=== PATIENT | male | born 1965 | race Caucasian/White ===

== ENCOUNTER 2020-03-03 13:25 | Inpatient (IN) ==
[2020-03-03 14:03] LABS: Basophils # (auto) 0.03 K/uL (0-0.2); Basophils % (auto) 0.3 %; Eosinophils % (auto) 8.8 %; Hematocrit (blood only) 37.9 % (42-52); Immature Granulocytes # (auto) 0.05 K/uL (0.00-0.02); Immature Granulocytes % (auto) 0.5 %; Lymphocytes # (auto) 1.67 K/uL (1.2-3.4); Lymphocytes % (auto) 16.2 %; Mean Corpuscular Hemoglobin 29.3 pg (25-34); Mean Corpuscular Hgb Conc 34.3 g/dL (32-36); Mean Corpuscular Volume 85.6 fL (80-100); Mean Platelet Volume 11.5 fL (7.4-10.4); Monocytes # (auto) 0.54 K/uL (0.11-0.59); Monocytes % (auto) 5.3 %; Neutrophils # (auto) 7.09 K/uL (1.4-6.5); Neutrophils % (auto) 68.9 %; Platelet Count 210 K/uL (130-400); RDW Coefficient of Variation 13.2 % (11.5-14.5); RDW Standard Deviation 41.2 fL (36.4-46.3); Red Blood Count 4.43 M/uL (4.7-6.1); White Blood Count 10.28 K/uL (4.8-10.8)
[2020-03-03 14:17] LABS: Partial Thromboplastin Ratio 0.9; Partial Thromboplastin Time 24.2 Seconds (21.0-31.0); Prothrombin Time 10.7 Seconds (9.0-12.0)
[2020-03-03 14:34] LABS: Alanine Aminotransferase 22 U/L (12-78); Albumin Globulin Ratio 0.6 (0.9-2); Albumin Level 2.6 gm/dl (3.4-5.0); Alkaline Phosphatase 129 U/L (45-117); Aspartate Aminotransferase 22 U/L (15-37); Bilirubin,Total 0.3 mg/dl (0.2-1); Blood Urea Nitrogen 48 mg/dl (7-18); Carbon Dioxide 25 mmol/L (21-32); Chloride 97 mmol/L (98-107); Creatinine Clr Calc Pharmacy 51.5 ml/min; Est GFR (African American) 43.2; Est GFR (Non-African American) 37.3; Globulin 4.1 gm/dl (2.5-4.0); Glucose 387 mg/dl (70-99); Potassium 5.7 mmol/L (3.5-5.1); Sodium 127 mmol/L (136-145); Total Protein 6.7 gm/dl (6.4-8.2); Troponin I < 0.015 ng/ml (0-0.045)
[2020-03-03] MEDS ORDERED: ASPIRIN 81 MG CHEW PO STA (14:45)
[2020-03-03] MEDS ORDERED: NITROGLYCERIN SL 0.4 MG/TAB TAB SL STA (14:45)
--- NOTE | 2020-03-03 14:50 | XRay Report ---
XR chest 1V portable CLINICAL HISTORY: Chest Pain pain COMPARISON STUDY: No previous studies for comparison. FINDINGS: Mild stable cardiomegaly. Permanent unipolar cardiac pacer. Lungs are considered clear. [place] phragms are smooth. IMPRESSION: No acute process. ACT 112: Negative or not required by law. The above report was generated using voice recognition software. It may contain grammatical, syntax or spelling errors. Electronically signed by: Samm Whitehead M.D. 03/03/2020 2:49 PM
--- NOTE | 2020-03-03 14:53 | Emergency Department Note ---
History of Present Illness General Chief complaint: Cardiac Assessment Stated complaint: CHEST PRESS,NUMB LEFT ARM,NAUSEA,SOB,BACK PAIN Time Seen by Provider: 03/03/20 14:33 Source: patient Mode of arrival: ambulatory Limitations: no limitations History of Present Illness Maximum Pain Intensity: 6 This patient comes in planing of chest pain. He said it started around 9:00 in the morning got dizzy and some chest pain it central it does radiate to his left arm he was nauseated when he moved is been constant since 1:00. It was 8/10 at the worst and is now 4-10 he is had some shortness of breath. It feels better when he sits is worse when he breathes. He does have a extensive medical history including cardiac disease and he said that he had a chest pain a few days ago prior to that he had not had chest pain since 2015. He was out of his nitroglycerin. He has had no blood or melena stool. No fall or trauma. He did take approximately 14 units of insulin at noon. In regards to his cardiac history had an ME with stent in 2011. He had another stent in 2015. He had a CABG done in about 2015 as well as a defibrillator. He says his defibrillator has not fired. He has never been to our hospital before and just recently moved to the area and has an appointment with the [facility] primary care physician. Home Medications Home Medications Medication Instructions Recorded Confirmed Type amlodipine 5 mg PO DAILY 03/03/20 03/03/20 History aspirin [Aspirin Low Dose] 81 mg PO DAILY 03/03/20 03/03/20 History atorvastatin 80 mg PO HS 03/03/20 03/03/20 History citalopram 40 mg PO DAILY 03/03/20 03/03/20 History furosemide 40 mg PO DAILY 03/03/20 03/03/20 History gabapentin 600 mg PO QID 03/03/20 03/03/20 History insulin aspart U-100 [Novolog 10 unit SUBCUT UD 03/03/20 03/03/20 History Flexpen U-100 Insulin] insulin glargine [Basaglar KwikPen 28 unit SUBCUT HS 03/03/20 03/03/20 History U-100 Insulin] isosorbide mononitrate 90 mg PO DAILY 03/03/20 03/03/20 History losartan 25 mg PO DAILY 03/03/20 03/03/20 History metoprolol succinate 50 mg PO DAILY 03/03/20 03/03/20 History nitroglycerin [Nitrostat] 0.4 mg SUBLINGUAL UD PRN 03/03/20 03/03/20 History oxycodone 10 mg PO QID PRN 03/03/20 03/03/20 History zolpidem 5 mg PO HS PRN 03/03/20 03/03/20 History Allergies Allergy/AdvReac Type Severity Reaction Status Date / Time bee venom protein (honey bee) Allergy Unknown Unverified 03/03/20 15:21 fluorescein Allergy Unknown Unverified 03/03/20 15:21 Past Med/Surg History Social History Smoking Status: Current every day smoker Second Hand Exposure: Yes; Do You Dip or Chew Tobacco: No; Tobacco Cessation Education Requested by Patient: Yes Hx Substance Use: No Preferred Language: Irish Communication Ability: Effective Submersible Pilot Required: No Beliefs That Will Affect Care: None Current Living Situation: Significant Other Current Living Situation Comment: [place] ([place]) Other Information That Helps Us Care for You: No Feels Safe at Home: Yes Safety Concerns: Feels Safe At This Time Immunizations: Social history he tells me he went through a recent break-up and moved to the area Review of Systems A total of 10 systems reviewed and were otherwise negative Physical Exam Vital Signs Vital Signs - 24 hr 03/03/20 13:32 03/03/20 14:31 03/03/20 14:53 Temperature 37 C Temperature Source Oral Pulse Rate 77 68 66 Pulse Rate from SpO2 Sensor 67 67 Respiratory Rate 18 25 H 16 Respiratory Effort / Characteristics Non-Labored Respiratory Depth Normal Blood Pressure 104/67 142/82 H 116/77 Blood Pressure Mean 79 90 84 Pulse Oximetry 97 96 95 Oxygen Delivery Method Room Air Room Air Room Air Sepsis Recent Fever Within 48 Hours No Sepsis New/Unexplained Change in Mental Status No Sepsis Action Taken by Nursing No Action Required 03/03/20 14:55 03/03/20 15:00 03/03/20 15:05 Temperature Temperature Source Pulse Rate 65 65 68 Pulse Rate from SpO2 Sensor 65 65 68 Respiratory Rate 25 H 18 21 Respiratory Effort / Characteristics Respiratory Depth Blood Pressure 104/62 101/58 L 110/63 Blood Pressure Mean 66 69 73 Pulse Oximetry 94 94 96 Oxygen Delivery Method Room Air Room Air Room Air Sepsis Recent Fever Within 48 Hours Sepsis New/Unexplained Change in Mental Status Sepsis Action Taken by Nursing 03/03/20 15:16 Temperature Temperature Source Pulse Rate 70 Pulse Rate from SpO2 Sensor Respiratory Rate 19 Respiratory Effort / Characteristics Respiratory Depth Blood Pressure 90/69 L Blood Pressure Mean 74 Pulse Oximetry 96 Oxygen Delivery Method Room Air Sepsis Recent Fever Within 48 Hours Sepsis New/Unexplained Change in Mental Status Sepsis Action Taken by Nursing General: Well developed well nourished in no acute distress, breathing comfortab ly on room air. Normal speech HEENT: Normal cephalic atraumatic. Pupils are equal round and reactive to light. Extraocular movements are intact. Oropharynx is pink with moist mucous membranes. No swelling of the mouth lips or tongue. Neck: Supple with a midline trachea. No meningeal signs or stiffness, no JVD or bruits. No Stridor. Chest: Clear to auscultation bilaterally. No wheezes or rhonchi. No increased work of breathing. Heart: Regular rate and rhythm without murmurs or gallops. Abdomen: Soft nontender, nondistended without rebound guarding or rigidity. Extremities: No cyanosis clubbing or edema. No calf tenderness. He has a left prosthetic leg with left BKA Spine/Back. Non tender to palpation. No CVA tenderness Skin: Good turgor without rashes. Neurologic exam: Cranial nerves two through 12 are intact. Motor and sensation are intact and symmetrical throughout. Course Administered Medications Acetaminophen (Tylenol) 650 mg PO Q4H PRN PRN Reason: Pain Stop: 04/03/20 03:47 Last Admin: 03/04/20 11:54 Dose: 650 mg Documented by: [id number] Admin: 03/04/20 04:03 Dose: 650 mg Documented by: [id number] Amlodipine Besylate (Norvasc) 5 mg PO DAILY [facility] Stop: 04/03/20 08:59 Last Admin: 03/04/20 07:34 Dose: 5 mg Documented by: [id number] Aspirin (Ecotrin Ectab) 81 mg PO DAILY [facility] Stop: 04/03/20 08:59 Last Admin: 03/04/20 07:33 Dose: 81 mg Documented by: [id number] Atorvastatin Calcium (Lipitor) 80 mg PO HS [facility] Stop: 04/02/20 20:59 Last Admin: 03/04/20 20:52 Dose: 80 mg Documented by: [id number] Admin: 03/03/20 19:35 Dose: 80 mg Documented by: [id number] Citalopram Hydrobromide (Celexa) 40 mg PO DAILY [facility] Stop: 04/03/20 08:59 Last Admin: 03/04/20 07:35 Dose: 40 mg Documented by: [id number] Gabapentin (Neurontin) 600 mg PO QID [facility] Stop: 04/02/20 18:59 Last Admin: 03/04/20 20:52 Dose: 600 mg Documented by: [id number] Admin: 03/04/20 16:46 Dose: 600 mg Documented by: [id number] Admin: 03/04/20 12:33 Dose: Not Given Documented by: [id number] Admin: 03/04/20 07:34 Dose: 600 mg Documented by: [id number] Admin: 03/03/20 23:02 Dose: 600 mg Documented by: [id number] Admin: 03/03/20 19:36 Dose: 600 mg Documented by: [id number] Heparin Sodium (Porcine) (Heparin Sodium (Porcine)) 5,000 units SQ Q12 [facility] Stop: 04/02/20 20:59 Last Admin: 03/04/20 20:52 Dose: 5,000 units Documented by: [id number] Cosigned by: [id number] Admin: 03/04/20 07:38 Dose: 5,000 units Documented by: [id number] Cosigned by: [id number] Admin: 03/03/20 19:36 Dose: 5,000 units Documented by: [id number] Cosigned by: [id number] Sodium Chloride (Nss 1000ml) 1,000 mls @ 80 mls/hr IV .[id number] [facility] Stop: 04/02/20 18:24 Last Infusion: 03/04/20 23:30 Dose: 0 mls/hr Documented by: [id number] Admin: 03/04/20 18:14 Dose: 80 mls/hr Documented by: [id number] Infusion: 03/04/20 18:02 Dose: 0 mls/hr Documented by: [id number] Admin: 03/04/20 05:24 Dose: 80 mls/hr Documented by: [id number] Infusion: 03/04/20 05:24 Dose: 80 mls/hr Documented by: [id number] Admin: 03/03/20 18:44 Dose: 80 mls/hr Documented by: [id number] Insulin Aspart (Novolog Flexpen) 0 units SC ACHS [facility] Stop: 04/02/20 20:59 Last Admin: 03/04/20 20:54 Dose: Not Given Documented by: [id number] Cosigned by: [id number] Admin: 03/04/20 16:45 Dose: 6 units Documented by: [id number] Cosigned by: [id number] Admin: 03/04/20 11:46 Dose: 8 units Documented by: [id number] Cosigned by: [id number] Admin: 03/04/20 07:39 Dose: 11 units Documented by: [id number] Cosigned by: [id number] Admin: 03/03/20 21:07 Dose: 3 units Documented by: [id number] Cosigned by: [id number] Insulin Glargine (Lantus Solostar Pen) 0 units SC HS [facility]; Protocol Stop: 04/03/20 20:59 Last Admin: 03/04/20 20:53 Dose: 15 units Documented by: [id number] Cosigned by: [id number] Isosorbide Mononitrate (Imdur Extended Rel) 90 mg PO DAILY [facility] Stop: 04/03/20 08:59 Last Admin: 03/04/20 07:32 Dose: 90 mg Documented by: [id number] Losartan Potassium (Cozaar) 25 mg PO DAILY [facility] Stop: 04/03/20 08:59 Last Admin: 03/04/20 07:33 Dose: 25 mg Documented by: [id number] Metoprolol Succinate (Toprol Xl) 50 mg PO DAILY [facility] Stop: 04/03/20 08:59 Last Admin: 03/04/20 07:33 Dose: 50 mg Documented by: [id number] Nitroglycerin (Nitro-Bid 2%) 0.5 inch EXT Q6H [facility] Stop: 04/02/20 18:24 Last Admin: 03/05/20 01:15 Dose: 0.5 inch Documented by: [id number] Admin: 03/04/20 19:40 Dose: 0.5 inch Documented by: [id number] Admin: 03/04/20 12:33 Dose: Not Given Documented by: [id number] Admin: 03/04/20 07:29 Dose: 0.5 inch Documented by: [id number] Admin: 03/04/20 02:45 Dose: 0.5 inch Documented by: [id number] Admin: 03/03/20 19:45 Dose: 0.5 inch Documented by: [id number] Oxycodone HCl (Oxycodone Hcl Ir 5 Mg Tab (Immediate Release)) 10 mg PO QID PRN PRN Reason: Pain Stop: 03/17/20 18:24 Last Admin: 03/05/20 03:55 Dose: 10 mg Documented by: [id number] Admin: 03/04/20 13:27 Dose: 10 mg Documented by: [id number] Admin: 03/04/20 07:27 Dose: 10 mg Documented by: [id number] Admin: 03/03/20 23:02 Dose: 10 mg Documented by: [id number] Admin: 03/03/20 18:46 Dose: 10 mg Documented by: [id number] Discontinued Medications Aspirin (Aspirin Chew) 324 mg PO NOW STA Stop: 03/03/20 14:46 Last Admin: 03/03/20 14:51 Dose: 324 mg Documented by: [id number] Sodium Chloride (Nss 1000ml) 500 mls @ 999 mls/hr IV .Q31M ONE Stop: 03/03/20 15:59 Last Infusion: 03/03/20 16:08 Dose: 0 mls/hr Documented by: [id number] Admin: 03/03/20 15:31 Dose: 999 mls/hr Documented by: [id number] Insulin Glargine (Lantus Solostar Pen) 28 units SC HS [facility] Stop: 04/02/20 20:59 Last Admin: 03/03/20 19:36 Dose: 28 units Documented by: [id number] Cosigned by: [id number] Insulin Glargine (Lantus Solostar Pen) 15 units SC NOW ONE Stop: 03/04/20 08:01 Last Admin: 03/04/20 08:09 Dose: 15 units Documented by: [id number] Cosigned by: [id number] Nitroglycerin (Nitrostat) 0.4 mg SL NOW STA Stop: 03/03/20 14:46 Last Admin: 03/03/20 14:52 Dose: 0.4 mg Documented by: [id number] Perflutren Lipid Microsphere (Definity) 2 ml IV ONCE ONE Stop: 03/04/20 07:25 Last Admin: 03/04/20 07:24 Dose: 2 ml Documented by: [id number] Zolpidem Tartrate (Ambien) 5 mg PO HS PRN PRN Reason: Sleep Stop: 04/02/20 18:24 Last Admin: 03/03/20 23:02 Dose: 5 mg Documented by: [id number] Medical Decision Making Differential Diagnosis Acute coronary syndrome, arrhythmia, unstable angina, diabetes complication, isauro ctrolyte or metabolic abnormality, infection Medical Records Attestation: I reviewed the patient's medical records. Home Medications Current Medication List: was personally reviewed by me Laboratory Data Attestation: I reviewed the patient's lab results. Result diagrams: 03/05/20 06:37 03/04/20 05:16 Lab Results 03/03/20 03/03/20 03/03/20 Range/Units 13:47 13:47 13:47 WBC 10.28 (4.8-10.8) K/uL RBC 4.43 L (4.7-6.1) M/uL Hgb 13.0 L (14.0-18.0) g/dL Hct 37.9 L (42-52) % MCV 85.6 (80-100) fL MCH 29.3 (25-34) pg MCHC 34.3 (32-36) g/dL RDW Std Deviation 41.2 (36.4-46.3) fL RDW Coeff of Eli 13.2 (11.5-14.5) % Plt Count 210 (130-400) K/uL MPV 11.5 H (7.4-10.4) fL Immature Gran % (Auto) 0.5 % Neut % (Auto) 68.9 % Lymph % (Auto) 16.2 % [place] % (Auto) 5.3 % Eos % (Auto) 8.8 % Baso % (Auto) 0.3 % Neut # (Auto) 7.09 H (1.4-6.5) K/uL Lymph # (Auto) 1.67 (1.2-3.4) K/uL [place] # (Auto) 0.54 (0.11-0.59) K/uL Eos # (Auto) 0.90 H (0-0.5) K/uL Baso # (Auto) 0.03 (0-0.2) K/uL Immature Gran # (Auto) 0.05 H (0.00-0.02) K/uL PT 10.7 (9.0-12.0) Seconds INR 1.0 (0.9-1.1) APTT 24.2 (21.0-31.0) Seconds PTT Ratio 0.9 Sodium 127 L (136-145) mmol/L Potassium 5.7 H (3.5-5.1) mmol/L Chloride 97 L (98-107) mmol/L Carbon Dioxide 25 (21-32) mmol/L Anion Gap 6.0 (3-11) BUN 48 H (7-18) mg/dl Creatinine 2.00 H (0.6-1.4) mg/dl Est Cr Clr Drug Dosing 51.5 ml/min Est GFR ( Amer) 43.2 Est GFR (Non-Af Amer) 37.3 BUN/Creatinine Ratio 24.0 H (10-20) Glucose 387 H* (70-99) mg/dl Calcium 9.0 (8.5-10.1) mg/dl Total Bilirubin 0.3 (0.2-1) mg/dl AST 22 (15-37) U/L ALT 22 (12-78) U/L Alkaline Phosphatase 129 H (45-117) U/L Troponin I < 0.015 (0-0.045) ng/ml Total Protein 6.7 (6.4-8.2) gm/dl Albumin 2.6 L (3.4-5.0) gm/dl Globulin 4.1 H (2.5-4.0) gm/dl Albumin/Globulin Ratio 0.6 L (0.9-2) Beta-Hydroxybutyric Acd (0.2-2.81) mg/dl Imaging Data Attestation: I personally reviewed and interpreted this imaging study as follows: My Impression: Chest x-ray: No acute infiltrate, failure, pneumothorax seen. Defibrillator in place Radiologist's Impression: XR chest 1V portable CLINICAL HISTORY: Chest Pain pain COMPARISON STUDY: No previous studies for comparison. FINDINGS: Mild stable cardiomegaly. Permanent unipolar cardiac pacer. Lungs are considered clear. Diaphragms are smooth. IMPRESSION: No acute process. ECG Data Attestation: I personally reviewed and interpreted this ECG as follows: Indication: + chest pain Rate (beats per minute): 74 Rhythm: + normal sinus ECG Intervals/blocks: + Normal QRS, + Normal QT and + Normal [place] ECG Pace: + Left axis deviation ECG ST segments: + Normal ST segments ECG Findings: + LVH; no PACs and no PVCs Comparison ECG Date: no prior available Blood Pressure Blood Pressure Findings: Elevated blood pressure Blood Pressure Disposition: elevated BP felt to be situational MDM Narrative This patient comes in as described above peers placed in room C1. He is here for treatment evaluation of chest pain. He has a strong cardiac history as well as being a diabetic. He looks well on exam and stable vital signs. His EKG shows no ischemic changes there is no old one available for comparison as he is never been to our hospital before. He does not have an elevated white count or fever to suggest infection. He does have renal insufficiency which he says he typically does. Potassium is mildly elevated at 5.7 however he has no changes to suggest peak T waves or arrhythmia. His troponin initially is negative. He was given aspirin 324 mg chewable as well as a sublingual nitroglycerin. Chest x-ray is also obtained and shows no chf, pneumonia or pneumothorax. The nitro did help his pain but his blood pressure went low into the high 80s/low 90s was given a 500 cc bolus and did respond to this. I did consult the medical team as I do think he needs to be admitted for further cardiac treatment and evaluation. Continuous cardiac technologist: His chest pain and his cardiac history an order was placed in the EMR for continuous cardiac monitoring. He was noted to be in normal sinus rhythm with a pulse of 68. Impression & Plan Chest pain, ICD (implantable cardioverter-defibrillator), single, in situ, CAD (coronary artery disease), Dizziness, Acute hyperglycemia Discharge Plan Visit Data Chief Complaint: Cardiac Assessment Stated Complaint: CHEST PRESS,NUMB LEFT ARM,NAUSEA,SOB,BACK PAIN ED Provider: Guillermo Pettit Discharge Problem: Chest pain, ICD (implantable cardioverter-defibrillator), single, in situ, CAD (coronary artery disease), Dizziness, Acute hyperglycemia Patient Disposition: Still a Patient Discharge Instructions Interventions: ED Discharge Assessment Last Done: 03/03/20 17:47 Discharge Problem: Chest pain Qualifiers: Chest pain type: precordial pain Qualified Code(s): R07.2 - Precordial pain CAD (coronary artery disease) Qualifiers: Coronary Disease-Associated Artery/Lesion type: unspecified vessel or lesion type [place] vs. transplanted heart: [place] heart Associated angina: with unstable angina Qualified Code(s): I25.110 - Atherosclerotic heart disease of [place] coronary artery with unstable angina pectoris
[2020-03-03] MEDS ORDERED: SODIUM CHLORIDE 0.9% 1000ML 500 ML IV ONE (15:29)
--- NOTE | 2020-03-03 17:10 | History & Physical Report ---
Date of Service March 03, 2020 Assessment & Plan (1) Chest pain: Pt is a 58yo gentleman with a PMHx significant for PA with stent placement, Hx of CABG and defibrillator placement, uncontrolled diabetes with left BKA, tobacco abuse, Tourette's syndrome and antisocial personality disorder who was admitted for ACS rule-out. ACS rule-out/Chest Pressure -Has been having chest pressure 8/10, started 8 hours ago, currently 3/10. -Associated with nausea and dry heaves, SOB, sweats and headache -Pt with significant cardiac Hx of PA with stent placement, Hx of CABG and defibrillator placement -EKG with NSR, no evidence of acute ischemia -Trops NEGx1, will trend q6h -Echo ordered -lipid panel and HgbA1c pending -will admit to PCU/tele for continuous cardiac monitoring -continue nitro-Bid 0.5inch q6h scheduled with SBP parameters for holding. Given hypotension currently, no prn morphine ordered for additional pain relief. -aspirin 324mg given in ED, continue home 81mg daily -continue home metoprolol succinate 50mg daily, isosorbide mononitrate 90mg, losartan 25mg daily -continue atorvastatin 80mg po qhs -cardiology consult placed Uncontrolled DMII -pt with glucose of 387, does not appear to be in DKA -pt states he is compliant with home regimen of basal 28U nightly with 10+SS with meals, however his high glucose levels suggest otherwise. -Hx of left BKA for diabetic infection -HgbA1c, urine microalbuminuria ordered with AM labs -pharmacy consult placed for glycemic control -ISS while hospitalized Hyperkalemia -K+ of 5.7 on admission -Pt states he has a known history of this -EKG with NSR, no evidence of arrhythmias currently -Anticipate some resolution with insulin administration above; can consider IV Insulin Regular Hyponatremia -Pt with Na of 127 on admission -Possibly secondary to hypovolemia/dehydration vs. acutely with Hx of nausea/vomitting -Urine Na+ and urine and serum osm ordered -on NSS @80 for rehydration -trend with AM labs BUBBA in the setting of uncontrolled diabetes -Cr of 2.00 on admission, BUN/Cr ratio>20 -unsure of pt's baseline -suggestion of pre-renal pathology -NSS@80mls/hr -trend Cr with AM labs -holding home Lasix 40mg HTN -continue home amlodipine 5mg in addition to metoprolol succinate and losartan ?CHF -echo ordered, previous records unavailable -hold home Lasix 40mg -continue home isosorbide mononitrate 90mg, metoprolol succinate 50mg, losartan 25mg Hx of tobacco abuse -pt states he will quit today -Has tried periodically to quit -smokes 1ppd--consider patch while hospitalized Hx of antisocial personality disorder -continue home citalopram 40mg Hx of Tourettes Syndrome -continue home gabapentin 600mg QID Hx of back pain and BKA -continue PRN oxycodone 10mg QID Insomnia -continue home zolpidem 5mg qhs PRN FEN/GI: DMII diet, NSS@80mls/hr DVT prophylaxis: Heparin SQ BID CODE STATUS: full code Dispo: PCU/tele History of Present Illness Primary Care Provider: Landon Johnston DO Pt is a 58yo gentleman with a PMHx significant for PA with stent placement, Hx of CABG and defibrillator placement, uncontrolled diabetes with left BKA, tobacco abuse, Tourette's syndrome and antisocial personality disorder who was admitted for ACS rule-out. Pt states he recently moved to the area after being in [facility] with a friend for the last 3 months. The living situation was not the best so he moved to [place] to be with his girlfriend. Before [place] he lived in [place] with his mother after his left him. [facility] he has a significant cardiac Hx with uncontrolled diabetes. Presenting today after having unrelenting chest pressure, 8/10, nonradiating but associated with SOB, sweats and numbness or tingling down the arm. [facility] he had a similar episode a few days ago that went away. [facility] in both instances he was active before and resting when the pain started. [facility] he ran out of his nitroglycerin medication so could not take anything when he had the pain. Has a Hx of CABG done in 2017 at the [facility] in [place] and implantation of a defibrillator after he "passed out" while walking his dog in 2016 at [facility] in [place]. Currently a smoker of 1ppd, off and on since age 37, Fam Hx of father with DM and heart disease. Denies excessive alcohol use as well as recreational drug use. Says girlfriend has medical marijuana. 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 Had BBQ chicken for dinner last night. Lives at home with his girlfriend in a [address] house. ED course: 500 NSS bolus, aspirin 324mg, nitrostat SL 0.4mg Allergies Allergy/AdvReac Type Severity Reaction Status Date / Time bee venom protein (honey bee) Allergy Unknown Unverified 03/03/20 15:21 fluorescein Allergy Unknown Unverified 03/03/20 15:21 Home Medications Home Medications Medication Instructions Recorded Confirmed Type amlodipine 5 mg PO DAILY 03/03/20 03/03/20 History aspirin [Aspirin Low Dose] 81 mg PO DAILY 03/03/20 03/03/20 History atorvastatin 80 mg PO HS 03/03/20 03/03/20 History citalopram 40 mg PO DAILY 03/03/20 03/03/20 History furosemide 40 mg PO DAILY 03/03/20 03/03/20 History gabapentin 600 mg PO QID 03/03/20 03/03/20 History insulin aspart U-100 [Novolog 10 unit SUBCUT UD 03/03/20 03/03/20 History Flexpen U-100 Insulin] insulin glargine [Basaglar KwikPen 28 unit SUBCUT HS 03/03/20 03/03/20 History U-100 Insulin] isosorbide mononitrate 90 mg PO DAILY 03/03/20 03/03/20 History losartan 25 mg PO DAILY 03/03/20 03/03/20 History metoprolol succinate 50 mg PO DAILY 03/03/20 03/03/20 History nitroglycerin [Nitrostat] 0.4 mg SUBLINGUAL UD PRN 03/03/20 03/03/20 History oxycodone 10 mg PO QID PRN 03/03/20 03/03/20 History zolpidem 5 mg PO HS PRN 03/03/20 03/03/20 History Past Med/Surg History Social History Smoking Status: Current every day smoker Feels Safe at Home: Yes Review of Systems Constitutional: + fatigue; no fever, no chills and no anorexia Eyes: no worsening vision Ear, Nose, Mouth, Throat: no nasal congestion and no sore throat Respiratory: + dyspnea; no cough Cardiovascular: + chest pain, + chest pain at rest, + chest pain with activity and + dyspnea; no palpitations, no syncope and no edema Gastrointestinal: + nausea; no abdominal pain, no vomiting, no constipation, no diarrhea/loose stools and no blood in stools Genitourinary: no dysuria Musculoskeletal: + back pain and + joint pain Integumentary: no new lesions Neurologic: + headache(s); no tingling, no numbness and no confusion Psychiatric: no confusion Physical Exam Physical Exam: General: Alert, oriented. No acute distress sitting in bed, mask on face Skin: bruises on right lower extremity Psych: Appropriate mood and affect Neuro: No gross deficits HEENT: NC/AT Chest: Nontender to palpation. Noted surgical scars CV: RRR, Normal s1, s2. No murmurs appreciated Resp: Breath sounds clear bilaterally, no increased effort of breathing. No crackles/rhonchi/rales. Abdomen: Soft, nontender, nondistended. No guarding. No organomegaly appreciated. Extremities: Left BKA, no edema in right leg Results & Data Results & Data ([facility]) Vital Signs (Past 12 Hours) Vital Signs Temp Pulse Resp BP Pulse Ox 03/03/20 16:45 67 18 103/52 L 96 03/03/20 16:30 64 19 121/70 03/03/20 16:15 63 13 119/56 L 03/03/20 16:00 60 16 97/58 L 96 03/03/20 15:45 63 23 110/64 97 03/03/20 15:40 20 99/56 L 96 03/03/20 15:39 20 86/50 L 96 03/03/20 15:32 20 113/68 97 03/03/20 15:16 70 19 90/69 L 96 03/03/20 15:05 68 21 110/63 96 03/03/20 15:00 65 18 101/58 L 94 03/03/20 14:55 65 25 H 104/62 94 03/03/20 14:53 66 16 116/77 95 03/03/20 14:31 68 25 H 142/82 H 96 03/03/20 13:32 37 C 77 18 104/67 97 Supervising Physician Co-Signing Physician Notes Attending attestation Pt seen and examined in concert with Dr. Ojevwe. In agreement with the documented findings as noted in the resident documentation with any exceptions or additions as noted here. Continuing improvement of central chest pressure (2/10 now) with resolution of LUE paresthsia. Persistent acute on chronic lower back pain on the right side which has been ameliorated partially by ED pain mgmt. FULL CODE On examination, S1/S2 nl RRR no MCG. CTAB. Abd NT/ND BS+ve. LLE prosthesis BKA in place. Str 5/5 b/l UE Chest pain, ACS r/o - considerable cardiac history including stent, CABG and implantable defib - cardiology consultation placed. Trend troponins. EKG in AM. Agree w/ echo. Nitrate ordered, morphine ordered but hold presently 2/2 low BP DMII, uncontrolled - has been running, per patient, in the 300-500 range for the last several months. Had been out of medication prior to moving to [place]. Resume home regimen. Glycemic consult placed. BUBBA, pre-renal, vs. CKD in the setting of DMII - previous records would be helpful. IVF and trend BMP. Hyponatremia, suspected hypovolemic vs. N/V induced - hydrating, trend BMP Hyperkalemia - EKG without overt changes, insulin and glycemic control should correct. Trend BMP Else see resident documentation as noted. Resident Activity Tracking Resident Involvement: Resident Care Provided Care Provided: Adult Hospital Medicine
[2020-03-03] MEDS ORDERED: DEXTROSE 50% 50 ML SYRINGE IV PRN (18:25)
[2020-03-03] MEDS ORDERED: GLUCOSE 40% GEL 15 GM TUBE PO PRN (18:25)
[2020-03-03] MEDS ORDERED: CARBOHYDRATES FOR HYPOGLYCEMIA PO PRN (18:25)
[2020-03-03] MEDS ORDERED: ZOLPIDEM TARTRATE 5 MG TAB PO PRN (18:25)
[2020-03-03] MEDS ORDERED: GLUCAGON FOR INJ 1 MG VIAL SQ PRN (18:25)
[2020-03-03] MEDS ORDERED: GLUCOSE 10 TABS/TUBE PO PRN (18:25)
[2020-03-03] MEDS ORDERED: PHARMACY GLYCEMIC MGMT CONSULT PRN (18:30)
[2020-03-03] MEDS ORDERED: ONDANSETRON INJ 2 MG/ML 2 ML VIAL IV PRN (18:42)
[2020-03-03] MEDS ORDERED: ALUMINUM/MAGNESIUM/SIMETH (MAALOX MAX) 30 ML UDC PO PRN (18:42)
[2020-03-03] MEDS ORDERED: POLYETHYLENE (MIRALAX) 17 GM PACK PO PRN (18:42)
[2020-03-03] MEDS: SODIUM CHLORIDE 0.9% 1000ML 1,000 ML IV SCH (18:44)
[2020-03-03] MEDS: OXYCODONE HCL IR 5 MG TAB (IMMEDIATE RELEASE) PO PRN ×2 (18:46→23:02)
[2020-03-03] MEDS: ATORVASTATIN 40 MG TAB PO SCH (19:35)
[2020-03-03] MEDS: HEPARIN SOD 5,000 UNIT/0.5 ML VIAL SQ SCH (19:36)
[2020-03-03] MEDS: GABAPENTIN 600 MG TAB PO SCH ×2 (19:36→23:02)
[2020-03-03] MEDS: NITROGLYCERIN 2% OINTMENT 30GM TUBE EXT SCH (19:45)
[2020-03-03] MEDS ORDERED: INSULIN GLARGINE SOLOSTAR 100 UNITS/ML 3 ML PEN SC SCH (21:00)
[2020-03-03] MEDS: INSULIN ASPART 100 UNITS/ML 3 ML PEN SC SCH (21:07)
[2020-03-04] MEDS: NITROGLYCERIN 2% OINTMENT 30GM TUBE EXT SCH ×4 (02:45→19:40)
[2020-03-04] MEDS: ACETAMINOPHEN 325 MG TAB PO PRN ×2 (04:03→11:54)
[2020-03-04] MEDS: SODIUM CHLORIDE 0.9% 1000ML 1,000 ML IV SCH ×2 (05:24→18:14)
[2020-03-04 05:35] LABS: Basophils # (auto) 0.05 K/uL (0-0.2); Basophils % (auto) 0.5 %; Eosinophils # (auto) 1.22 K/uL (0-0.5); Eosinophils % (auto) 11.9 %; Hemoglobin 12.4 g/dL (14.0-18.0); Immature Granulocytes # (auto) 0.07 K/uL (0.00-0.02); Immature Granulocytes % (auto) 0.7 %; Lymphocytes # (auto) 2.79 K/uL (1.2-3.4); Lymphocytes % (auto) 27.3 %; Mean Corpuscular Hemoglobin 29.4 pg (25-34); Mean Corpuscular Hgb Conc 33.5 g/dL (32-36); Mean Corpuscular Volume 87.7 fL (80-100); Mean Platelet Volume 11.3 fL (7.4-10.4); Monocytes # (auto) 0.75 K/uL (0.11-0.59); Monocytes % (auto) 7.3 %; Neutrophils # (auto) 5.35 K/uL (1.4-6.5); Neutrophils % (auto) 52.3 %; Platelet Count 189 K/uL (130-400); RDW Coefficient of Variation 13.5 % (11.5-14.5); Red Blood Count 4.22 M/uL (4.7-6.1); White Blood Count 10.23 K/uL (4.8-10.8)
--- NOTE | 2020-03-04 06:04 | Electrocardiogram Report ---
Test Reason : Blood Pressure : / mmHG Vent. Rate : 074 BPM Atrial Rate : 074 BPM P-R Int : 176 ms QRS Dur : 100 ms QT Int : 408 ms P-R-T Axes : 017 -37 -21 degrees QTc Int : 452 ms Normal sinus rhythm Left axis deviation Moderate voltage criteria for LVH, may be normal variant Inferior infarct , age undetermined Abnormal ECG No previous ECGs available Confirmed by Robby Stewart ([id number]) on 03/04/2020 6:03:51 AM Referred By: SELF Confirmed By:Robby Stewart
[2020-03-04 06:11] LABS: Estimated Average Glucose 384 mg/dl
[2020-03-04 06:19] LABS: Albumin Globulin Ratio 0.6 (0.9-2); Albumin Level 2.2 gm/dl (3.4-5.0); BUN Creatinine Ratio 22.8 (10-20); Bilirubin,Total 0.3 mg/dl (0.2-1); Creatinine Clr Calc Pharmacy 41.5 ml/min; Est GFR (African American) 33.6; Globulin 3.8 gm/dl (2.5-4.0); Potassium 5.4 mmol/L (3.5-5.1)
[2020-03-04] MEDS ORDERED: PERFLUTREN LIPID MICROSPHERE (DEFINITY) IV ONE (07:24)
[2020-03-04] MEDS: OXYCODONE HCL IR 5 MG TAB (IMMEDIATE RELEASE) PO PRN ×2 (07:27→13:27)
[2020-03-04] MEDS: ISOSORBIDE MONO EXTENDED REL 30 MG TABCR PO SCH (07:32)
[2020-03-04] MEDS: ASPIRIN 81 MG ECTAB PO SCH (07:33)
[2020-03-04] MEDS: METOPROLOL SUCC 50MG EXT REL TAB PO SCH (07:33)
[2020-03-04] MEDS: LOSARTAN POTASSIUM 25 MG TAB PO SCH (07:33)
[2020-03-04] MEDS: AMLODIPINE BESYLATE 5 MG TAB PO SCH (07:34)
[2020-03-04] MEDS: GABAPENTIN 600 MG TAB PO SCH ×4 (07:34→20:52)
[2020-03-04] MEDS: CITALOPRAM 40 MG TAB PO SCH (07:35)
[2020-03-04] MEDS: HEPARIN SOD 5,000 UNIT/0.5 ML VIAL SQ SCH ×2 (07:38→20:52)
[2020-03-04] MEDS: INSULIN ASPART 100 UNITS/ML 3 ML PEN SC SCH ×4 (07:39→20:54)
[2020-03-04] MEDS ORDERED: INSULIN GLARGINE SOLOSTAR 100 UNITS/ML 3 ML PEN SC ONE ×3 (08:00)
[2020-03-04 09:25] LABS: Appearance Urine Cloudy (Clear); Bacteria Urine Automated Negative (Negative); Bilirubin Urine Negative (Negative); Blood Urine Negative (Negative); Color Urine Yellow; Epithelial Cell Urine Auto >30 /lpf (0-5); Glucose Urine UA 2+ (Negative); Ketones Urine Negative (Negative); Leukocyte Esterase Urine Negative (Negative); Nitrite Urine Negative (Negative); Protein Urine 3+ (Negative); RBC Urine Automated 0-4 /hpf (0-4); Urobilinogen Urine Negative (Negative)
[2020-03-04 09:39] LABS: Granular Casts Urine 20-30 /lpf (0)
[2020-03-04] MEDS ORDERED: MELATONIN 3 MG TAB PO PRN (10:14)
--- NOTE | 2020-03-04 10:51 | XCELERA ---
[id number]
--- NOTE | 2020-03-04 11:12 | Pharmacy Report ---
Glycemic Control Consultation - Date of Service March 04, 2020 - Scope Scope: Glycemic Pharmacist consulted for glycemic control and to write orders per [facility] inpatient glycemic control protocol. - Objective Weight: 99.5 kg Accuchecks BSG (last 24hrs): 03/03/20 03/03/20 03/03/20 13:47 16:47 19:13 Glucose 387 H* POC Glucose 213 H 155 H 03/04/20 03/04/20 03/04/20 05:16 07:33 07:34 Glucose 256 H POC Glucose 322 H* 310 H* Laboratory Data (last 24hrs): 03/03/20 03/03/20 03/04/20 13:47 18:57 05:16 Potassium 5.7 H 5.4 H Carbon Dioxide 25 25 Anion Gap 6.0 7.0 Creatinine 2.00 H 2.46 H D Est Cr Clr Drug Dosing 51.5 41.5 Osmolality 297 Beta-Hydroxybutyric Acd HbA1c: Hemoglobin A1c 15.0 % (4.5-5.6) H 03/04/20 05:16 - Recent Pertinent Medications Outpatient Anti-diabetic Regimen: * Basaglar 28 units HS, Novolog 10 units TIDM + SSI * A1c = 15 % 03/04 Risk Factors for Insulin Resistance: * Diet - Assessment & Plan Assessment & Plan: ASSESSMENT: * 54 year old male admitted with chest pain. PHx significant for CABG, defibrillator placement, uncontrolled diabetes with left BKA, tourette's syndrome. BUBBA on admission, unclear baseline. Scr trending up further this AM * Pharmacy consulted for glycemic management. Fasting BSG this AM 310 mg/dL - per RN patient snacking overnight with hector crackers/pudding. Plan to give extra 15 units of Lantus this AM and add novolog scale. Plan to add Lantus scale for HS based upon BSGs PLAN FOR INPATIENT GLYCEMIC CONTROL: * Basal insulin * Lantus 15 units x 1 this AM * Lantus HS per scale based upon BSG 15-25 units / see emar for further details * Bolus insulin * NovoLog per scale ACHS or Q6hrs while NPO * Goal Range: Low 120 mg/dL - High 160 mg/dL * Correction Factor: 20 mg/dL/unit * Nutritional / Prandial insulin per carb ratio of 1 unit per 6 grams CHO consumed * Please note that the plan above was derived based on current level of insulin resistance and hospital stress. These recommendations are appropriate for inpatient admission only. Plan of care upon discharge will need to be reassessed to avoid potential outpatient hypo/hyperglycemia. Thank you.
--- NOTE | 2020-03-04 12:47 | CT Scan Report ---
CT OF THE ABDOMEN AND PELVIS WITHOUT CONTRAST CLINICAL HISTORY: Right flank pain. COMPARISON STUDY: No previous studies for comparison. TECHNIQUE: Axial images of the abdomen and pelvis were obtained without IV contrast. Images were revi ewed in the axial, sagittal, and coronal planes. Automated exposure control was utilized for the guicho dy. A dose lowering technique was utilized adhering to the principles of ALARA. FINDINGS: Linear left lower lobe opacity reflects atelectasis. Pacer leads are partially imaged. Ther e is moderate cardiomegaly. No pneumatosis, free air or portal venous gas is present. No renal, urete ral or bladder calculi are present. Evaluation of the remainder of the abdomen and pelvis is suboptim al on this unenhanced examination. There are gallstones within the gallbladder. The gallbladder is no t distended. There is no pericholecystic infiltration. Unenhanced images of the liver, spleen, adrena l glands and pancreas are unremarkable. A diverticulum of the second portion of the duodenum is noted . Fat-containing umbilical and ventral hernias are noted. The appendix is normal. There is no evidenc e for a bowel obstruction. Moderate amount of stool within the colon is noted. Bladder is moderately distended. No suspicious osseous lesions are noted. There is no lymphadenopathy or ascites. IMPRESSION: 1. No urinary calculi or hydronephrosis. 2. Cholelithiasis. No evidence for acute cholecystitis. 3. No bowel obstruction. Normal appendix. Moderate amount of stool within the colon. 4. Fat-containing umbilical and ventral hernias. ACT 112: Negative or not required by law. Electronically signed by: Duke Bustamante M.D. 03/04/2020 12:46 PM
--- NOTE | 2020-03-04 16:04 | Cardiology Consultation ---
Date of Consultation March 04, 2020 Assessment & Plan (1) Chest pain: He presents with chest discomfort which in some ways sounds like it could be ischemic, however the duration without any objective findings would be very atypical. He has not been having exertional angina, he is at high risk for catheterization with his kidney disease and I do not think the evidence points toward this being an ischemic event. I do not see any role for stress testing, we know he is coronary artery disease and it could be very misleading. I would therefore not recommend any further evaluation at this time. (2) ICD (implantable cardioverter-defibrillator), single, in situ: He has a single-chamber ICD, I am going to have that evaluated this afternoon but probably is unrelated to his presentation. (3) CAD (coronary artery disease): He has coronary disease (as well as peripheral vascular disease) and needs to be treated with risk factor modification. His cholesterol on presentation was surprisingly good, he does need to quit smoking however and get his diabetes under control. I do not know that his diet is very good. He tells me he is going to live in the area, I am therefore going to arrange follow-up for him in our office at discharge. History of Present Illness Reason for Consultation: Chest pain, ICD Attending Physician: Chuy Garcia MD History of Present Illness This is a 54-year-old male who has a history of diabetes mellitus, chronic kidney disease, severe peripheral vascular disease with left BKA, tobacco abuse, reported Tourette syndrome and coronary artery disease. This includes myocardial infarction and stent placement in 2012 with repeat stent placement in 2016 and then bypass surgery in 2017, he has a [employer] single-chamber defibrillator implanted in the left which I believe was performed in 2016 in [place]. He recently moved to this area. He presented with chest discomfort on March 03, 2020. Evaluation so far included electrocardiography on presentation which shows an old inferior my ocardial infarction and some minor inferolateral ST-T abnormalities. Echocardiography done March 04, 2020 shows normal left ventricular size with mild left ventricular dysfunction and ejection fraction of 40 to 45% with inferior akinesis. He also has moderate left ventricular hypertrophy. Laboratory studies are notable for a high potassium, a high creatinine, a markedly elevated hemoglobin A1c, and elevated triglyceride level but good LDL and HDL measurements. Of note also he had 3 troponin measurements following presentation all of which are undetectable. On discussing his symptoms with him it sounds as though he has been working hard doing some home remodeling on his girlfriend's house, it is very hot but he has been working there. He also moved into the house with his belongings. He really did not have exertional angina, he developed this persistent chest discomfort with left arm discomfort and left hand tingling, however that has gradually resolved over several days and is almost completely gone now. When he was working hard he did feel little short of breath and he describes a sensation of lightheadedness when he pushes himself physically. He does not recall an ICD shock, he has had no presyncope or syncope. Allergies Allergy/AdvReac Type Severity Reaction Status Date / Time bee venom protein (honey bee) Allergy Unknown Unverified 03/03/20 15: fluorescein Allergy Unknown Unverified 03/03/20 15:21 Home Medications Home Medications Medication Instructions Recorded Confirmed Type amlodipine 5 mg PO DAILY 03/03/20 03/03/20 History aspirin [Aspirin Low Dose] 81 mg PO DAILY 03/03/20 03/03/20 History atorvastatin 80 mg PO HS 03/03/20 03/03/20 History citalopram 40 mg PO DAILY 03/03/20 03/03/20 History furosemide 40 mg PO DAILY 03/03/20 03/03/20 History gabapentin 600 mg PO QID 03/03/20 03/03/20 History insulin aspart U-100 [Novolog 10 unit SUBCUT UD 03/03/20 03/03/20 History Flexpen U-100 Insulin] insulin glargine [Basaglar KwikPen 28 unit SUBCUT HS 03/03/20 03/03/20 History U-100 Insulin] isosorbide mononitrate 90 mg PO DAILY 03/03/20 03/03/20 History losartan 25 mg PO DAILY 03/03/20 03/03/20 History metoprolol succinate 50 mg PO DAILY 03/03/20 03/03/20 History nitroglycerin [Nitrostat] 0.4 mg SUBLINGUAL UD PRN 03/03/20 03/03/20 History oxycodone 10 mg PO QID PRN 03/03/20 03/03/20 History zolpidem 5 mg PO HS PRN 03/03/20 03/03/20 History Patient History Social History Smoking Status: Current every day smoker Second Hand Exposure: Yes; Do You Dip or Chew Tobacco: No; Tobacco Cessation Education Requested by Patient: Yes Hx Substance Use: No Preferred Language: Swedish Communication Ability: Effective 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 HEENT: Unremarkable Neck: No jugular venous distention, carotid pulses are normal and equal bilaterally without bruits. Pulmonary: Clear to auscultation bilaterally. Cardiac: Regular rhythm with no murmur, gallop or rub. Abdomen: Soft, nontender with normal bowel sounds. Extremities: No edema on right, his left leg is a BKA with a prosthesis. Neurologic: No focal findings. Gait was not tested. Skin: No rash, ecchymoses or petechiae. Results & Data ([facility]) Vital Signs (Past 12 Hours) Vital Signs Temp Pulse Resp BP BP Pulse Ox 03/04/20 15:17 36.4 C L 69 21 106/67 93 03/04/20 13:23 104/63 03/04/20 12:53 108/54 L 03/04/20 12:17 97/60 L 03/04/20 11:45 82/36 L 03/04/20 11:13 36.3 C L 55 L 18 89/54 L 96 03/04/20 07:34 36.3 C L 62 18 133/77 96 Diagnostic Findings Cardiac Enzymes 03/03/20 03/04/20 03/04/20 Range/Units 18:57 00:47 05:16 AST 18 (15-37) U/L Troponin I < 0.015 < 0.015 (0-0.045) ng/ml Lipids 03/04/20 Range/Units 05:16 Triglycerides 337 H (0-150) mg/dl Cholesterol 154 (0-200) mg/dl HDL Cholesterol 41 mg/dl Cholesterol/HDL Ratio 4 CBC 03/04/20 Range/Units 05:16 WBC 10.23 (4.8-10.8) K/uL RBC 4.22 L (4.7-6.1) M/uL Hgb 12.4 L (14.0-18.0) g/dL Hct 37.0 L (42-52) % Plt Count 189 (130-400) K/uL Neut # (Auto) 5.35 (1.4-6.5) K/uL Lymph # (Auto) 2.79 (1.2-3.4) K/uL [place] # (Auto) 0.75 H (0.11-0.59) K/uL Eos # (Auto) 1.22 H (0-0.5) K/uL Baso # (Auto) 0.05 (0-0.2) K/uL Comprehensive Metabolic Panel 03/04/20 Range/Units 05:16 Sodium 134 L D (136-145) mmol/L Potassium 5.4 H (3.5-5.1) mmol/L Chloride 102 (98-107) mmol/L Carbon Dioxide 25 (21-32) mmol/L BUN 56 H (7-18) mg/dl Creatinine 2.46 H D (0.6-1.4) mg/dl Glucose 256 H (70-99) mg/dl Calcium 8.0 L (8.5-10.1) mg/dl AST 18 (15-37) U/L ALT 21 (12-78) U/L Alkaline Phosphatase 119 H (45-117) U/L Total Protein 6.0 L (6.4-8.2) gm/dl Albumin 2.2 L (3.4-5.0) gm/dl Intake and Output 03/04/20 03/04/20 03/04/20 06:59 14:59 22:59 Intake Total 1633.333 / 2133.333 820 / 820 Output Total 325 / 325 100 / 100 Balance 1308.333 / 1808.333 720 / 720 Intake: IV 853.333 / 1353.333 Nss 1000ML 1,000 ml @ 80 mls/hr 853.333 / 853.333 IV .[id number] [facility] Rx#:[id number] Oral 780 / 780 820 / 820 Output: Urine 325 / 325 100 / 100 Other: Weight 99.5 kg 99.5 kg Patient Weight 03/05/20 06:59 Weight 99.5 kg Telemetry: Sinus rhythm, no significant abnormality PG Care Time/CCT Total # of Minutes Spent Total Time Spent with Patient: Total time spent is greater than 50% in coordination of care (as documented) at patient's floor/unit and/or counseling patient: Coding Level of Care Code 21149 Inpt Consult Level 4 Diagnoses Chest pain R07.9 Chest pain type: unspecified ICD (implantable cardioverter-defibrillator), single, in situ Z95.810 CAD (coronary artery disease) I25.10 (1) Chest pain Chest pain type: unspecified Qualified Code(s): R07.9 - Chest pain, uns pecified
--- NOTE | 2020-03-04 16:08 | Medical Student Progress Note ---
Date of Service March 04, 2020 Assessment & Plan (1) Chest pain: Billy Mensah is a 54-year-old male with an extensive cardiac history of DE with stent placement, CABG, and defibrillator placement who presented with continuous chest pain and was admitted for ACS rule out. Chest pain/ACS rule-out -chest pain and pressure has resolved. Continues to have mild tingling in left arm -Troponin negative x3 -EKG with NSR, no signs of ischemia -Echocardiogram obtained * Normal LV size with mildly reduced systolic function. EF 40-45%. * Akinesis of inferior wall with severe hypokinesis of the base to the mid inferoseptum. * Moderate LV concentric hypertrophy -Cardiology consulted, appreciate recs -Continue home metoprolol succinate 50 mg, isosorbide mononitrate 90 mg, losartan 25 mg, Amlodipine 5 mg daily -Lipid panel obtained: total cholesterol of 154, LDL 46, HDL 41, ratio 4. TG 337. Continue Atorvastatin 80 mg PO qhs Uncontrolled Type II diabetes mellitus -HbA1c significantly elevated at 15.0. Patient attributes this to being without medications for several weeks (financial issues) * Insulin-dependent diabetes managed with insulin glargine (28 units SQ hs) and insulin aspart (10 unites SQ UD) at home * Patient recently moved to [place] and is in need of outpatient management. Primary care management is being arranged by case management. * Glycemic pharmacist consulted for inpatient management Hyperkalemia Potassium of 5.7 of admission, which may be secondary to extracellular shift secondary to hyperglycemia -Downtrended to 5.4, likely secondary to insulin drip -Obtain repeat measurement Hyponatremia Sodium of 127 on admission likely secondary to dehydration/hypovolemia. -Increased to 134 - continue NSS Acute Kidney Injury Creatinine of 2.00 on admission, increased to 2.46. - baseline Cr unknown -BUN:Cr ratio >20:1 and FENa <1%, suggesting likely prerenal etiology. However, the patient's baseline Cr is likely elevated secondary to uncontrolled diabetes -continue NSS @ 80 mls/hr -Recheck labs in AM 5. Right flank pain -CT stones protocol obtained. * No evidence of urinary calculi or hydronephrosis * Cholelithiasis without obstruction noted incidentally * Fat-containing umbilical and ventral hernias noted incidentally FEN/GI: DMII diet, NSS @80 mls/hr Code: Full Chest pain type: unspecified Qualified Code(s): R07.9 - Chest pain, unspecified Supervising Attestation Attending attestation Pt seen and examined in concert with Student Dr. Carlton and Dr. Rice. In agreement with the documented findings as noted in the resident documentation with any exceptions or additions as noted here. Resolution of chest pressure overnight with intermittent residual paresthesia of the ulnar distribution with particular position which is chronic per patient. Persistent right flank pain which is aching and nonradiating. On examination, S1/S2 nl RRR no MCG. CTAB w/ R CVA TTP. Abd NT/ND BS+ve Chest pain - cardiology consultation appreciated - continue statin therapy, metoprolol, losartan, as well as imdur and amlodipine for BP control. Echo as noted. No stress per cardiology recommendation. Uncontrolled DMII - A1c of 15, which is improved from previous per pt. glycemic consult for adjustment of regimen to goal glycemic control and transition to outpatient regimen. If cost is a factor, consider transition to 70/30 Hyperkalemia - somewhat improved, trend BMP Hyponatremia - improved, likely 2/2 hyperglycemic correction. Trend BMP BUBBA with right flank pain and h/o nephrolithiasis - continue hydration and monitor for response in AM, nephrology consultation if persistently elevated. CT stone protocol without active stone. Else see resident documentation as noted. Subjective Billy Mensah is a 54-year-old male with a past medical history of DE with stent placement, CABG, defibrillator placement, uncontrolled diabetes with left BKA, Tourette syndrome, antisocial personality disorder, and a significant smoking history who presented with continuous chest pain on 03/03/20. The pain was an 8/10 without radiation. However, he did endorse tingling and numbness in his left arm. He also experienced shortness of breath and diaphoresis. He notes a similar episode a few days ago. He is prescribed nitroglycerin for anginal pain but he states that he recently ran out of his medication. He was administered ASA 324 mg and Nitroglycerin in the ED and admitted for ACS rule out. Today, Billy denies any chest pain or pressure. He rates his pain at a 0/10. However, he still has mild tingling down his left arm into his fingers. He denies any difficulty breathing. He notes occasional palpitations that he describes as forceful beats. He also endorses right flank pain and a history of 8-10 kidney stones previously. He is urinating normally without dysuria or hematuria and he denies radiation of the pain to the groin. Review of Systems Constitutional: as per Subjective / HPI Eyes: no problem reported Ear, Nose, Mouth, Throat: no problem reported Respiratory: as per Subjective / HPI Cardiovascular: as per Subjective / HPI Gastrointestinal: no problem reported Genitourinary: + as per Subjective / HPI Musculoskeletal: no problem reported Physical Exam Constitutional: WD/WN, vitals as above no acute distress Frequently falls asleep during exam, which he atributes to Ambien. ENMT: external ear and nose normal, oropharynx normal Neck: normal visual inspection Respiratory: normal respiratory effort, lungs clear to auscultation Cardiovascular: RRR, no murmur, no edema Gastrointestinal (Abdomen): normal bowel sounds, soft, nontender, no hepatosplenomegaly Skin: no rashes, warm and dry Genitourinary: + CVA tenderness (Right side) Results & Data ([facility]) Vital Signs (Past 12 Hours) Vital Signs Temp Pulse Resp BP BP Pulse Ox 03/04/20 15:17 36.4 C L 69 21 106/67 93 03/04/20 13:23 104/63 03/04/20 12:53 108/54 L 03/04/20 12:17 97/60 L 03/04/20 11:45 82/36 L 03/04/20 11:13 36.3 C L 55 L 18 89/54 L 96 03/04/20 07:34 36.3 C L 62 18 133/77 96 Laboratory Results Hgb 12.4, MCV 87.7 Sodium 127 --> 134 Potassium 5.7 --> 5.4 Calcium 8.0 BUN 48 --> 56 Cr 2.00 --> 2.46 Glucose 387 --> 256 HbA1c = 15.0 Lipid Panel: Total cholesterol 154, LDL 46, HDL 41, HDL/total cholesterol ratio 4, triglycerides 337 Diagnostic Findings CXR negative for any acute pathology Echocardiogram: Normal LV size with mildly reduced systolic function. EF 40-45%. Akinesis of inferior wall with severe hypokinesis of the base to mid inferoseptum. Moderate concentric LV hypertrophy.
[2020-03-04] MEDS ORDERED: NICOTINE 14 MG/24 HR PATCH TD PRN (16:31)
[2020-03-04] MEDS: ATORVASTATIN 40 MG TAB PO SCH (20:52)
[2020-03-04] MEDS: INSULIN GLARGINE SOLOSTAR 100 UNITS/ML 3 ML PEN SC SCH (20:53)
[2020-03-05] MEDS: NITROGLYCERIN 2% OINTMENT 30GM TUBE EXT SCH ×4 (01:15→22:38)
[2020-03-05] MEDS: OXYCODONE HCL IR 5 MG TAB (IMMEDIATE RELEASE) PO PRN ×2 (03:55→17:55)
[2020-03-05 06:55] LABS: Basophils # (auto) 0.03 K/uL (0-0.2); Basophils % (auto) 0.3 %; Eosinophils # (auto) 1.57 K/uL (0-0.5); Eosinophils % (auto) 14.5 %; Hematocrit (blood only) 37.5 % (42-52); Hemoglobin 12.8 g/dL (14.0-18.0); Immature Granulocytes # (auto) 0.04 K/uL (0.00-0.02); Immature Granulocytes % (auto) 0.4 %; Lymphocytes # (auto) 2.97 K/uL (1.2-3.4); Lymphocytes % (auto) 27.5 %; Mean Corpuscular Hemoglobin 29.6 pg (25-34); Mean Corpuscular Hgb Conc 34.1 g/dL (32-36); Mean Corpuscular Volume 86.8 fL (80-100); Mean Platelet Volume 10.9 fL (7.4-10.4); Monocytes # (auto) 0.99 K/uL (0.11-0.59); Monocytes % (auto) 9.2 %; Neutrophils # (auto) 5.21 K/uL (1.4-6.5); Neutrophils % (auto) 48.1 %; Platelet Count 186 K/uL (130-400); RDW Coefficient of Variation 13.3 % (11.5-14.5); RDW Standard Deviation 42.4 fL (36.4-46.3); Red Blood Count 4.32 M/uL (4.7-6.1); White Blood Count 10.81 K/uL (4.8-10.8)
[2020-03-05 07:22] LABS: Albumin Level 2.5 gm/dl (3.4-5.0); BUN Creatinine Ratio 20.6 (10-20); Calcium 7.6 mg/dl (8.5-10.1); Est GFR (African American) 27.3; Est GFR (Non-African American) 23.6
[2020-03-05 07:25] LABS: Albumin Globulin Ratio 0.6 (0.9-2); Bilirubin,Total 0.3 mg/dl (0.2-1); Globulin 4.2 gm/dl (2.5-4.0); Total Protein 6.7 gm/dl (6.4-8.2)
[2020-03-05] MEDS: INSULIN ASPART 100 UNITS/ML 3 ML PEN SC SCH ×4 (08:13→22:38)
[2020-03-05] MEDS: INSULIN GLARGINE SOLOSTAR 100 UNITS/ML 3 ML PEN SC SCH ×2 (08:14→22:36)
[2020-03-05] MEDS: CITALOPRAM 40 MG TAB PO SCH (08:15)
[2020-03-05] MEDS: AMLODIPINE BESYLATE 5 MG TAB PO SCH (08:15)
[2020-03-05] MEDS: ASPIRIN 81 MG ECTAB PO SCH (08:15)
[2020-03-05] MEDS: GABAPENTIN 600 MG TAB PO SCH ×4 (08:15→22:38)
[2020-03-05] MEDS: LOSARTAN POTASSIUM 25 MG TAB PO SCH (08:15)
[2020-03-05] MEDS: METOPROLOL SUCC 50MG EXT REL TAB PO SCH (08:15)
[2020-03-05] MEDS: HEPARIN SOD 5,000 UNIT/0.5 ML VIAL SQ SCH ×2 (08:16→22:37)
[2020-03-05] MEDS: ISOSORBIDE MONO EXTENDED REL 30 MG TABCR PO SCH (08:16)
[2020-03-05] MEDS: SODIUM CHLORIDE 0.9% 1000ML 1,000 ML IV SCH (08:17)
--- NOTE | 2020-03-05 12:58 | Cardiology Progress Note ---
Date of Service March 05, 2020 Assessment & Plan (1) Chest pain: He presentsed with chest discomfort which in some ways sounds like it could have been ischemic, however the duration without any objective findings would be very atypical. He has not been having exertional angina, he is at high risk for catheterization with his kidney disease and I do not think the evidence points toward this being an ischemic event. I do not see any role for stress testing, we know he is coronary artery disease and it could be very misleading. I would therefore not recommend any further evaluation at this time. If he has recurrent symptoms, especially if they are exertional, we may need to reconsi claudia. (2) ICD (implantable cardioverter-defibrillator), single, in situ: He has a single-chamber ICD, on evaluation it is working well and he has not had significant arrhythmias. Battery voltage is excellent. We can follow this in the office, he also has a [facility] monitor but is not being followed remotely anyplace that he is aware of and we can set that up as well. (3) CAD (coronary artery disease): He has coronary disease (as well as peripheral vascular disease) and needs to be treated with risk factor modification. His cholesterol on presentation was surprisingly good, he does need to quit smoking however and get his diabetes under control. I do not know that his diet is very good. He is going to be staying in the area, he is expressed interest in following up in our office and I will arrange that for several weeks and place the appointment in his discharge paperwork. Admission and Anticipated Discharge Date Admission Date: March 03, 2020 Subjective From the cardiovascular standpoint he is doing very well. He has had no further chest discomfort, he does not have shortness of breath and has no palpitations. Physical Exam Physical Exam: Constitutional: Alert, cooperative and in no distress. HEENT: Unremarkable Neck: No jugular venous distention, carotid pulses are normal and equal bilaterally without bruits. Pulmonary: Clear to auscultation bilaterally. Cardiac: Regular rhythm with no murmur, gallop or rub. Abdomen: Soft, nontender with normal bowel sounds. Extremities: No edema on right, his left leg is a BKA with a prosthesis. Neurologic: No focal findings. Gait was not tested. Skin: No rash, ecchymoses or petechiae. Results & Data ([facility]) Vital Signs (Past 12 Hours) Vital Signs Temp Pulse Pulse Resp BP Pulse Ox 03/05/20 11:44 36.5 C 83 20 142/69 H 94 03/05/20 07:52 36.8 C 76 18 138/76 95 03/05/20 07:38 81 03/05/20 03:00 36.8 C 72 21 142/79 H 92 Laboratory Results Cardiac Enzymes 03/05/20 Range/Units 06:37 AST 26 (15-37) U/L CBC 03/05/20 Range/Units 06:37 WBC 10.81 H (4.8-10.8) K/uL RBC 4.32 L (4.7-6.1) M/uL Hgb 12.8 L (14.0-18.0) g/dL Hct 37.5 L (42-52) % Plt Count 186 (130-400) K/uL Neut # (Auto) 5.21 (1.4-6.5) K/uL Lymph # (Auto) 2.97 (1.2-3.4) K/uL [place] # (Auto) 0.99 H (0.11-0.59) K/uL Eos # (Auto) 1.57 H (0-0.5) K/uL Baso # (Auto) 0.03 (0-0.2) K/uL Comprehensive Metabolic Panel 03/05/20 Range/Units 06:37 Sodium 133 L (136-145) mmol/L Potassium 5.0 (3.5-5.1) mmol/L Chloride 102 (98-107) mmol/L Carbon Dioxide 24 (21-32) mmol/L BUN 60 H (7-18) mg/dl Creatinine 2.92 H D (0.6-1.4) mg/dl Glucose 159 H (70-99) mg/dl Calcium 7.6 L (8.5-10.1) mg/dl AST 26 (15-37) U/L ALT 24 (12-78) U/L Alkaline Phosphatase 137 H (45-117) U/L Total Protein 6.7 (6.4-8.2) gm/dl Albumin 2.5 L (3.4-5.0) gm/dl Intake and Output 03/04/20 03/05/20 03/05/20 22:59 06:59 14:59 Intake Total 1400 / 3121.333 901.333 / 3121.333 Output Total 400 / 1200 700 / 1200 Balance 1000 / 1921.333 201.333 / 1921.333 Intake: IV 1000 / 1421.333 421.333 / 1421.333 Nss 1000ML 1,000 ml @ 80 mls/hr 1000 / 1421.333 421.333 / 1421.333 IV .[id number] LATRICIA Rx#:[id number] Oral 400 / 1700 480 / 1700 Output: Urine 400 / 1200 700 / 1200 Other: # Unmeasured Voids 1 Weight 99.5 kg 105.5 kg Diagnostic Findings Telemetry: Sinus rhythm, no significant arrhythmia. ICD evaluation: Normal function, no detected arrhythmias. PG Care Time/CCT Total # of Minutes Spent Total Time Spent with Patient: Total time spent is greater than 50% in sports marketing coordinator rdination of care (as documented) at patient's floor/unit and/or counseling patient: Coding Level of Care Code 79800 Subseq Hosp Care Lvl 2 Diagnoses Chest pain R07.2 Chest pain type: precordial pain ICD (implantable cardioverter-defibrillator), single, in situ Z95.810 CAD (coronary artery disease) I25.110 Associated angina: with unstable angina Coronary Disease-Associated Artery/Lesion type: unspecified vessel or lesion type [place] vs. transplanted heart: [place] heart CPT Codes Implantable Defib Single Lead Programming - 05294 ([id number]) (1) Chest pain Chest pain type: precordial pain Qualified Code(s): R07.2 - Precordial pain (2) CAD (coronary artery disease) Associated angina: with unstable angina Coronary Disease-Associated Artery/Lesion type: unspecified vessel or lesion type [place] vs. transplanted heart: [place] heart Qualified Code(s): I25.110 - Atherosclerotic heart disease of [place] coronary artery with unstable angina pectoris
--- NOTE | 2020-03-05 14:17 | Medical Student Progress Note ---
Date of Service March 05, 2020 Assessment & Plan (1) Chest pain: Billy Mensah is a 54-year-old male with an extensive cardiac history of CT with stent placement, CABG, and defibrillator placement who presented with continuous chest pain and was admitted for ACS rule out and is now being treated for Acute kidney injury. 1. Chest pain/ACS rule-out -chest pain and pressure has resolved. -Troponin negative x3 -EKG with NSR -Continue home metoprolol succinate 50 mg, isosorbide mononitrate 90 mg, losartan 25 mg, Amlodipine 5 mg daily -Lipid panel obtained: Total cholesterol 154, LDL 46, HDL 41, ratio 4, TG 337. * Continue Atorvastatin 80 mg PO qhs -HbA1c significantly elevated at 15.0 * Insulin-dependent diabetes managed with insulin glargine (28 units SQ hs) and insulin aspart (10 unites SQ UD) at home * Patient recently moved to [place] and is in need of outpatient management. Primary care management is being arranged by case management. * Glycemic pharmacist consulted for inpatient management -Echocardiogram obtained * Normal LV size with mildly reduced systolic function. EF 40-45%. * Akinesis of inferior wall with severe hypokinesis of the base to the mid inferoseptum. * Moderate LV concentric hypertrophy -Cardiology consulted, appreciate recs 2. Uncontrolled Type II Diabetes Mellitus -HbA1c significantly elevated at 15.0. Patient attributes this to being without medication for several weeks (financial issues). * Insulin-depended managed with insulin glargine (28 units SQ hs) and insulin aspart (10 units SQ UD) * Patient recently moved to [place] and is in need of outpatient management. Primary care management is being arranged * Glycemic pharmacist consulted for inpatient management 3. Hyperkalemia Potassium of 5.7 of admission, which may be secondary to extracellular shift secondary to hyperglycemia -Downtrending 5.7 --> 5.4 --> 5.0 -Obtain repeat measurement 4. Hyponatremia Sodium of 127 on admission likely secondary to dehydration/hypovolemia. -Level has remained stable at slightly less than low-normal range (134 --> 133) -Recheck in AM 4. Acute Kidney Injury Creatinine of 2.00 on admission, increased to 2.46 on 03/04 and 2.92 on 03/05 -BUN:Cr ratio >20:1 and FENa <1%, suggesting likely prerenal etiology. The patient's baseline Cr is unknown but likely elevated secondary to uncontrolled diabetes -continue NSS @ 80 mls/hr. * Patient stopped fluids last night due to personal preference. The importance of continuing fluids throughout the night has been emphasized -Renal Ultrasound ordered. Scheduled for 4:30 on 03/05. -Nephrology consulted -Recheck labs in AM 5. Right flank pain -CT obtained. * No evidence of urinary calculi or hydronephrosis * Cholelithiasis without obstruction * Fat-containing umbilical and ventral hernias FEN/GI: DMII diet, NSS @80 mls/hr Code: Full Chest pain type: precordial pain Qualified Code(s): R07.2 - Precordial pain Admission and Anticipated Discharge Date Admission Date: March 03, 2020 Supervising Attestation Attending attestation Pt seen and examined in concert with Dr. Rice and Student Dr. Carlton. In agreement with the documented findings as noted in the resident documentation with any exceptions or additions as noted here. Resting comfortably in bed without complaint. Did have IVF off overnight which may account for the lack of improvement in Cr. Willing to stay (and moved his court date). On examination, S1/S2 nl RRR no MCG. CTAB. Abd NT/ND BS+ve Chest pain w/ ACS r/o - negative evaluation - cardiology consultation appreciated DMII, uncontrolled - improving glycemic control - consultation appreciated Hyperkalemia - continues to improve, trend BMP Hyponatremia - stable, trend BMP BUBBA - increased, likely 2/2 off IVF overnight. restarted today. Nephrology consultation appreciated. Flank pain, right - likely back (trap v. paraspinal) Else see resident documentation as noted. Subjective Billy states that he is doing well today. He Denies chest pain, chest pressure, or palpitations, and the right arm tingling sensation has resolved. He does not endorse shortness of breath and his headache has resolved. He continues to have mild right flank pain that has lessened in intensity compared to yesterday. He is not able to localize the pain. He denies dysuria or hematuria. The patient has a service dog named Rafi in the room with him today. He had a court date in [place] scheduled for tomorrow (03/07), but after a discussion regarding his elevated creatinine and indication for further inpatient care, he was able to reschedule the court date. Additionally, the patient stopped the prescribed intravenous fluids during the night due to his own preference. They have been restarted and the importance of continuing fluids throughout the night has been emphasized. Review of Systems Constitutional: as per Subjective / HPI Respiratory: as per Subjective / HPI Cardiovascular: as per Subjective / HPI Genitourinary: + as per Subjective / HPI Physical Exam Constitutional: WD/WN, vitals as above no acute distress ENMT: external ear and nose normal, oropharynx normal Neck: normal visual inspection Respiratory: normal respiratory effort, lungs clear to auscultation Cardiovascular: RRR, no murmur, no edema Gastrointestinal (Abdomen): normal bowel sounds, soft, nontender, no hepatosplenomegaly Skin: no rashes, warm and dry Genitourinary: + CVA tenderness (Right sided) Results & Data ([facility]) Vital Signs (Past 12 Hours) Vital Signs Temp Pulse Pulse Resp BP Pulse Ox 03/05/20 11:44 36.5 C 83 20 142/69 H 94 03/05/20 07:52 36.8 C 76 18 138/76 95 03/05/20 07:38 81 03/05/20 03:00 36.8 C 72 21 142/79 H 92 Laboratory Results Hgb 12.8, MCV 86.8 Sodium 134 --> 133 Potassium 5.4 --> 5.0 Bun 48 --> 56 --> 60 Cr 2.00 --> 2.46 --> 2.92 Glucose 256 --> 159 Calcium 8.0 --> 7.6
[2020-03-05] MEDS: NORMOSOL-R 1,000 ML IV SCH (14:24)
--- NOTE | 2020-03-05 14:32 | Pharmacy Report ---
Pharmacy Glycemic Short Note 2 - Date of Service March 05, 2020 - Glycemic Short BSG Results (Last 24 hours): 03/04/20 03/04/20 03/05/20 16:24 20:18 06:37 Glucose 159 H POC Glucose 112 H 91 03/05/20 03/05/20 03/05/20 07:44 11:18 11:19 Glucose POC Glucose 153 H 58 L* 53 L* 03/05/20 03/05/20 11:34 11:51 Glucose POC Glucose 68 L* 71 ASSESSMENT: 03/05 * Patient received total of 55 units of insulin yesterday, of which 30 were basal insulin * Fasting BSG w/in range at 153 mg/dL - continue Lantus 15 units this AM * Lunch BSG trending down quickly to 58 mg/dL - likely related to too much correctional insulin. Did loosen AM novolog since BSGs trending down * Will remove CR for now. Patient NPO - will hold evening Lantus PLAN FOR INPATIENT GLYCEMIC CONTROL: * Basal insulin * Lantus 15 units x 1 this AM * Bolus insulin * NovoLog per scale ACHS or Q6hrs while NPO * Goal Range: Low 120 mg/dL - High 160 mg/dL * Correction Factor: 25 mg/dL/unit * Nutritional / Prandial insulin per carb ratio of 1 unit per -- grams CHO consumed * Please note that the plan above was derived based on current level of insulin resistance and hospital stress. These recommendations are appropriate for inpatient admission only. Plan of care upon discharge will need to be reassessed to avoid potential outpatient hypo/hyperglycemia. Thank you.
[2020-03-05 15:39] LABS: BUN Creatinine Ratio 23.8 (10-20); Calcium 7.5 mg/dl (8.5-10.1); Creatinine Clr Calc Pharmacy 42.9 ml/min; Est GFR (African American) 33.8; Est GFR (Non-African American) 29.2; Potassium 5.5 mmol/L (3.5-5.1)
--- NOTE | 2020-03-05 16:23 | Nephrology Consultation ---
Date of Consultation March 05, 2020 Assessment & Plan (1) BUBBA (acute kidney injury): Nonoliguric. Etiology unclear. Clinical presentation suggestive of ATN related to prerenal physiology, hyperglycemia, and adjustment in medications. Appears the patient was restarted on losartan during this hospitalization. I would hold any RAAS blockade at this time and I have put a hold on Losartan at this time. low-dose infusion of Normosol as being provided. Repeat laboratory studies this afternoon did demonstrate mild hyperkalemia with a potassium of 5.5 millimoles per L. I provided a 1 time dose of pituitary more. Suspect the patient has underlying diabetic kidney disease and possible type 4 RTA. The importance of a low potassium diet was stressed in detail. We also discussed in detail the importance of controlling his blood sugars. I will review additional records from his prior color television console monitor once they are available in the interim otherwise medications are appropriately dosed for kidney function. However I did discuss with the patient that he is on a very large dose of gabapentin for his current renal function. He is reticent to make changes in his medication at this time. We will continue to monitor closely and adjust as needed. In the interim current plan of care will be to maintain a slightly positive fluid balance in appropriate blood glucose control. Will repeat a metabolic profile tomorrow morning. Please document strict input and output. (2) Diabetes mellitus: (3) CKD (chronic kidney disease): History of Present Illness Reason for Consultation: BUBBA Requesting Physician: Chuy Garcia MD Attending Physician: Chuy Garcia MD History of Present Illness Mr. Billy Mensah is a 54-year-old male with uncontrolled diabetes mellitus, coronary artery disease, tobacco abuse, and chronic kidney disease. He previously followed with [facility] in [place]. Baseline creatinine is unknown. Records from recent hospitalization at [facility] in [place] as well as from his prior color television console monitor have been requested. Patient was admitted to [facility] with atypical chest pain. He is undergoing cardiac evaluation. The symptoms are felt to be noncardiac in nature and additional evaluation has been deferred at this time. Billy has been nonoliguric. His blood pressure has been acceptable. Creatinine was 2.0 mg/dL on admission. as of this morning had increased to 2.9 mg/dL. First KS has been held from his home medications. He has been maintained in a positive fluid balance with infusion of normal saline. CT scan of the abdomen and pelvis was obtained on admission which did not show obstruction of the kidneys. His urinalysis demonstrated 3+ protein with 10 white blood cells per high-power field as well as tender 30 hyaline casts. At the time my evaluation the patient felt well. He was hoping to be discharged home. He has no acute complaints or concerns. Allergies Allergy/AdvReac Type Severity Reaction Status Date / Time bee venom protein (honey bee) Allergy Unknown Unverified 03/03/20 15:21 fluorescein Allergy Unknown Unverified 03/03/20 15:21 Home Medications Home Medications Medication Instructions Recorded Confirmed Type amlodipine 5 mg PO DAILY 03/03/20 03/03/20 History aspirin [Aspirin Low Dose] 81 mg PO DAILY 03/03/20 03/03/20 History atorvastatin 80 mg PO HS 03/03/20 03/03/20 History citalopram 40 mg PO DAILY 03/03/20 03/03/20 History furosemide 40 mg PO DAILY 03/03/20 03/03/20 History gabapentin 600 mg PO QID 03/03/20 03/03/20 History insulin aspart U-100 [Novolog 10 unit SUBCUT UD 03/03/20 03/03/20 History Flexpen U-100 Insulin] insulin glargine [Basaglar KwikPen 28 unit SUBCUT HS 03/03/20 03/03/20 History U-100 Insulin] isosorbide mononitrate 90 mg PO DAILY 03/03/20 03/03/20 History losartan 25 mg PO DAILY 03/03/20 03/03/20 History metoprolol succinate 50 mg PO DAILY 03/03/20 03/03/20 History nitroglycerin [Nitrostat] 0.4 mg SUBLINGUAL UD PRN 03/03/20 03/03/20 History oxycodone 10 mg PO QID PRN 03/03/20 03/03/20 History zolpidem 5 mg PO HS PRN 03/03/20 03/03/20 History Patient History Medical History (Updated 03/05/20 @ 16:32 by Shravan Merrill DO) CAD (coronary artery disease) Diabetes mellitus Tourettes syndrome Surgical History (Updated 03/05/20 @ 16:27 by Shravan Merrill DO) Hx of BKA Family History (Updated 03/05/20 @ 16:27 by Shravan Merrill DO) Other Kidney disease Social History Smoking Status: Current every day smoker Second Hand Exposure: Yes; Hx Substance Use: No Preferred Language: Turkish Communication Ability: Effective 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 Beliefs That Will Affect Care: None Current Living Situation: Significant Other Current Living Situation Comment: [place] (GF) Feels Safe at Home: Yes Review of Systems Review of Systems: All systems reviewed & are unremarkable except as noted in HPI & below Physical Exam Constitutional: well developed and + obese; no acute distress Eyes: no scleral abnormality and no corneal abnormality ENMT: Mouth: no oral mucosal abnormality and oral mucous membranes not dry Neck: normal visual inspection and trachea midline Respiratory: normal respiratory effort Auscultation: lungs clear to auscultation bilaterally Cardiovascular: Rate/Rhythm: regular rate Heart Sounds: normal S1 and normal S2 Extremities: no edema Gastrointestinal (Abdomen): Percussion/Palpation: abdomen soft; abdomen nontender Musculoskeletal: Extremities: no cyanosis and no clubbing LLE BKA with prosthesis Skin: normal turgor; no lesions Neurologic: Motor/Sensory: no tremor and no asterixis Psychiatric: Orientation: alert and oriented x 3 Genitourinary: no CVA tenderness Results & Data ([facility]) Vital Signs (Past 12 Hours) Vital Signs Temp Pulse Pulse Resp BP Pulse Ox 03/05/20 14:51 36.5 C 72 18 114/63 96 03/05/20 11:44 36.5 C 83 20 142/69 H 94 03/05/20 07:52 36.8 C 76 18 138/76 95 03/05/20 07:38 81 Laboratory Results Laboratory Results - last 24 hr 03/04/20 03/05/20 03/05/20 20:18 06:37 06:37 WBC 10.81 H RBC 4.32 L Hgb 12.8 L Hct 37.5 L MCV 86.8 MCH 29.6 MCHC 34.1 RDW Std Deviation 42.4 RDW Coeff of Eli 13.3 Plt Count 186 MPV 10.9 H Immature Gran % (Auto) 0.4 Neut % (Auto) 48.1 Lymph % (Auto) 27.5 Deuel % (Auto) 9.2 Eos % (Auto) 14.5 Baso % (Auto) 0.3 Neut # (Auto) 5.21 Lymph # (Auto) 2.97 Deuel # (Auto) 0.99 H Eos # (Auto) 1.57 H Baso # (Auto) 0.03 Immature Gran # (Auto) 0.04 H Sodium 133 L Potassium 5.0 Chloride 102 Carbon Dioxide 24 Anion Gap 7.0 BUN 60 H Creatinine 2.92 H D Est Cr Clr Drug Dosing 36.0 Est GFR ( Amer) 27.3 Est GFR (Non-Af Amer) 23.6 BUN/Creatinine Ratio 20.6 H Glucose 159 H POC Glucose 91 Calcium 7.6 L Total Bilirubin 0.3 AST 26 ALT 24 Alkaline Phosphatase 137 H Total Creatine Kinase Total Protein 6.7 Albumin 2.5 L Globulin 4.2 H Albumin/Globulin Ratio 0.6 L 03/05/20 03/05/20 03/05/20 07:44 11:18 11:19 WBC RBC Hgb Hct MCV MCH MCHC RDW Std Deviation RDW Coeff of Eli Plt Count MPV Immature Gran % (Auto) Neut % (Auto) Lymph % (Auto) Deuel % (Auto) Eos % (Auto) Baso % (Auto) Neut # (Auto) Lymph # (Auto) Deuel # (Auto) Eos # (Auto) Baso # (Auto) Immature Gran # (Auto) Sodium Potassium Chloride Carbon Dioxide Anion Gap BUN Creatinine Est Cr Clr Drug Dosing Est GFR ( Amer) Est GFR (Non-Af Amer) BUN/Creatinine Ratio Glucose POC Glucose 153 H 58 L* 53 L* Calcium Total Bilirubin AST ALT Alkaline Phosphatase Total Creatine Kinase Total Protein Albumin Globulin Albumin/Globulin Ratio 03/05/20 03/05/20 03/05/20 11:34 11:51 15:03 WBC RBC Hgb Hct MCV MCH MCHC RDW Std Deviation RDW Coeff of Eli Plt Count MPV Immature Gran % (Auto) Neut % (Auto) Lymph % (Auto) Deuel % (Auto) Eos % (Auto) Baso % (Auto) Neut # (Auto) Lymph # (Auto) Deuel # (Auto) Eos # (Auto) Baso # (Auto) Immature Gran # (Auto) Sodium 133 L Potassium 5.5 H Chloride 104 Carbon Dioxide 24 Anion Gap 5.0 BUN 58 H Creatinine 2.45 H D Est Cr Clr Drug Dosing 42.9 Est GFR ( Amer) 33.8 Est GFR (Non-Af Amer) 29.2 BUN/Creatinine Ratio 23.8 H Glucose 89 POC Glucose 68 L* 71 Calcium 7.5 L Total Bilirubin AST ALT Alkaline Phosphatase Total Creatine Kinase 308 Total Protein Albumin Globulin Albumin/Globulin Ratio Diagnostic Findings CT abdomen and pelvis personally reviewed. No evidence of obstruction. PG Care Time/CCT Total # of Minutes Spent Total Time Spent with Patient: Total time spent is greater than 50% in coordination of care (as documented) at patient's floor/unit and/or counseling patient: Coding Level of Care Code 69944 Inpt Consult Level 4 Diagnoses BUBBA (acute kidney injury) N17.9 Diabetes mellitus E11.9 CKD (chronic kidney disease) N18.9
[2020-03-05] MEDS ORDERED: PATIROMER CALCIUM SORBITEX 8.4 GM PACK PO ONE (16:45)
--- NOTE | 2020-03-05 17:08 | Ultrasound Report ---
US duplex renal artery HISTORY: 54 years-old Male BUBBA acute kidney injury COMPARISON: CT abdomen and pelvis 03/04/2020 TECHNIQUE: Multiple real-time sonographic images of the kidneys were obtained assessing grayscale antony earance, color and spectral flow FINDINGS: The right kidney measures 12.2 cm in length and appears unremarkable. Patent right renal vein. Peak s ystolic velocity within the right renal artery measure up to 86 cm/s, end diastolic velocities measur ing up to 20 cm/s. Resistive indices measure up to 0.78. Left kidney measures 12.5 cm in length and appears unremarkable. Patent left renal vein. Peak systoli c velocities renal artery measures up to 111 cm/s, end diastolic velocities measuring up to 14 cm/s. Resistive indices measure up to 0.77. Normal plug flow is noted within the abdominal aorta, peak systolic velocity of 90 cm/s, end-diastoli c velocity of 15 cm/s. IMPRESSION: 1. Unremarkable sonographic appearance of the kidneys. 2. No evidence of renal artery stenosis. ACT 112: Negative or not required by law. The above report was generated using voice recognition software. It may contain grammatical, syntax o r spelling errors. Electronically signed by: Robert Madison M.D. 03/05/2020 5:06 PM
[2020-03-05] MEDS: ATORVASTATIN 40 MG TAB PO SCH (22:37)
[2020-03-05] MEDS: ACETAMINOPHEN 325 MG TAB PO PRN (22:45)
[2020-03-06] MEDS: NORMOSOL-R 1,000 ML IV SCH (03:40)
[2020-03-06] MEDS: NITROGLYCERIN 2% OINTMENT 30GM TUBE EXT SCH ×3 (03:40→14:45)
[2020-03-06 06:08] LABS: Basophils # (auto) 0.02 K/uL (0-0.2); Basophils % (auto) 0.3 %; Eosinophils # (auto) 1.16 K/uL (0-0.5); Eosinophils % (auto) 15.7 %; Hematocrit (blood only) 34.4 % (42-52); Hemoglobin 11.8 g/dL (14.0-18.0); Immature Granulocytes # (auto) 0.03 K/uL (0.00-0.02); Immature Granulocytes % (auto) 0.4 %; Lymphocytes # (auto) 2.19 K/uL (1.2-3.4); Lymphocytes % (auto) 29.7 %; Mean Corpuscular Hemoglobin 29.6 pg (25-34); Mean Corpuscular Hgb Conc 34.3 g/dL (32-36); Mean Corpuscular Volume 86.2 fL (80-100); Mean Platelet Volume 11.5 fL (7.4-10.4); Monocytes # (auto) 0.71 K/uL (0.11-0.59); Monocytes % (auto) 9.6 %; Neutrophils # (auto) 3.27 K/uL (1.4-6.5); Neutrophils % (auto) 44.3 %; Platelet Count 164 K/uL (130-400); RDW Coefficient of Variation 13.2 % (11.5-14.5); RDW Standard Deviation 41.8 fL (36.4-46.3); Red Blood Count 3.99 M/uL (4.7-6.1); White Blood Count 7.38 K/uL (4.8-10.8)
[2020-03-06 06:44] LABS: Albumin Level 2.1 gm/dl (3.4-5.0); BUN Creatinine Ratio 24.3 (10-20); Calcium 7.6 mg/dl (8.5-10.1); Creatinine Clr Calc Pharmacy 52.5 ml/min; Est GFR (African American) 43.5; Est GFR (Non-African American) 37.5; Potassium 4.3 mmol/L (3.5-5.1)
[2020-03-06 06:46] LABS: Albumin Globulin Ratio 0.6 (0.9-2); Bilirubin,Total 0.2 mg/dl (0.2-1); Globulin 3.7 gm/dl (2.5-4.0); Total Protein 5.8 gm/dl (6.4-8.2)
[2020-03-06] MEDS: INSULIN ASPART 100 UNITS/ML 3 ML PEN SC SCH ×2 (08:27→11:53)
[2020-03-06] MEDS: HEPARIN SOD 5,000 UNIT/0.5 ML VIAL SQ SCH (08:29)
[2020-03-06] MEDS: INSULIN GLARGINE SOLOSTAR 100 UNITS/ML 3 ML PEN SC SCH (08:31)
[2020-03-06] MEDS: METOPROLOL SUCC 50MG EXT REL TAB PO SCH (08:32)
[2020-03-06] MEDS: ISOSORBIDE MONO EXTENDED REL 30 MG TABCR PO SCH (08:32)
[2020-03-06] MEDS: GABAPENTIN 600 MG TAB PO SCH ×2 (08:32→12:33)
[2020-03-06] MEDS: ASPIRIN 81 MG ECTAB PO SCH (08:32)
[2020-03-06] MEDS: CITALOPRAM 40 MG TAB PO SCH (08:32)
[2020-03-06] MEDS: AMLODIPINE BESYLATE 5 MG TAB PO SCH (08:32)
--- NOTE | 2020-03-06 10:12 | Pharmacy Report ---
Pharmacy Glycemic Short Note 2 - Date of Service March 06, 2020 - Glycemic Short BSG Results (Last 24 hours): ASSESSMENT: 03/06: * Patient received a total of 38 units of insulin yesterday * 30 units basal + 8 units bolus * BSGs ranged 58-120 mg/dL * Fasting BSG this AM was 128 mg/dL. Will continue with Lantus 15 units QAM and 10-15 units QPM but adjust scale so patient is more likely to receive lower dose. * Patient is no longer NPO so added back a carb ratio this morning. * Lunchtime BSG was 87 mg/dL. Loosened correction factor and carb ratio with lunch. Depending on dinner BSG, may need to loosen or remove carb ratio. 03/05 * Patient received total of 55 units of insulin yesterday, of which 30 were basal insulin * Fasting BSG w/in range at 153 mg/dL - continue Lantus 15 units this AM * Lunch BSG trending down quickly to 58 mg/dL - likely related to too much correctional insulin. Did loosen AM novolog since BSGs trending down * Will remove CR for now. Patient NPO - will hold evening Lantus PLAN FOR INPATIENT GLYCEMIC CONTROL: * Basal insulin - decreased * Lantus 15 units SC QAM * Lantus 10-15 units SC QPM per scale (see eMAR for further details) * Bolus insulin - loosened * NovoLog per scale ACHS or Q6hrs while NPO * Goal Range: Low 120 mg/dL - High 160 mg/dL * Correction Factor: 35 mg/dL/unit * Nutritional / Prandial insulin per carb ratio of 1 unit per 15 grams CHO consumed * Please note that the plan above was derived based on current level of insulin resistance and hospital stress. These recommendations are appropriate for inpatient admission only. Plan of care upon discharge will need to be reassessed to avoid potential outpatient hypo/hyperglycemia. Thank you.
--- NOTE | 2020-03-06 11:26 | Nephrology Progress Note ---
Date of Service March 06, 2020 Assessment & Plan (1) BUBBA (acute kidney injury): Nonoliguric. Etiology unclear but clinical presentation suggestive of ATN related to prerenal physiology, hyperglycemia, and adjustment in medications. Creatinine improving with supportive care. Outside records pending. Volume status appropriate. BP reasonable earlier but slightly elevated this AM. I would avoid restarting LARRY/ARB therapy at this time. Continue to hold diuretics. Increase amlodipine to 10 mg daily. Billy is stable for discharge from a nephrology standpoint. I stressed the importance of close outpatient follow up. He expressed understanding. I will arrange a follow up with me in clinic for next week. I suspect the patient has underlying diabetic kidney disease and possible type 4 RTA. The importance of a low potassium diet was discussed. We also discussed in detail the importance of controlling his blood sugars. 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 In the interim medications are appropriately dosed for kidney function. He is on a very large dose of gabapentin for his current renal function. He is reticent to make changes in his medication at this time. We will continue to monitor closely and adjust as needed. Please repeat a metabolic profile early next week. I did review the plan of care with the primary hospitalist team this morning. (2) Diabetes mellitus: (3) CKD (chronic kidney disease): Admission and Anticipated Discharge Date Admission Date: March 03, 2020 Subjective No acute events overnight. Billy feels well this morning. Tolerating IVF. Appetite is good. No abdominal pain, nausea, vomiting, or diarrhea. No chest pain. Billy hopes to be discharged home today. No edema. Voiding urine without difficulty. Review of Systems Review of Systems: All systems reviewed & are unremarkable except as noted in HPI & below Physical Exam Constitutional: well developed and + obese; no acute distress Eyes: no scleral abnormality and no corneal abnormality ENMT: Mouth: no oral mucosal abnormality and oral mucous membranes not dry Neck: normal visual inspection and trachea midline Respiratory: normal respiratory effort Auscultation: lungs clear to auscultation bilaterally Cardiovascular: Rate/Rhythm: regular rate Heart Sounds: normal S1 and normal S2 Extremities: no edema Gastrointestinal (Abdomen): Percussion/Palpation: abdomen soft; abdomen nontender Musculoskeletal: Extremities: no cyanosis and no clubbing Skin: normal turgor; no lesions Neurologic: Motor/Sensory: no tremor and no asterixis Psychiatric: Orientation: alert and oriented x 3 Genitourinary: no CVA tenderness Results & Data ([facility]) Vital Signs (Past 12 Hours) Vital Signs Temp Pulse Resp BP Pulse Ox 03/06/20 07:30 36.4 C L 60 19 173/88 H 95 03/06/20 03:35 36.3 C L 62 16 151/79 H 97 Laboratory Results Laboratory Results - last 24 hr 03/05/20 03/05/20 03/05/20 11:34 11:51 15:03 WBC RBC Hgb Hct MCV MCH MCHC RDW Std Deviation RDW Coeff of Eli Plt Count MPV Immature Gran % (Auto) Neut % (Auto) Lymph % (Auto) Swift % (Auto) Eos % (Auto) Baso % (Auto) Neut # (Auto) Lymph # (Auto) [place] # (Auto) Eos # (Auto) Baso # (Auto) Immature Gran # (Auto) Sodium 133 L Potassium 5.5 H Chloride 104 Carbon Dioxide 24 Anion Gap 5.0 BUN 58 H Creatinine 2.45 H D Est Cr Clr Drug Dosing 42.9 Est GFR ( Amer) 33.8 Est GFR (Non-Af Amer) 29.2 BUN/Creatinine Ratio 23.8 H Glucose 89 POC Glucose 68 L* 71 Calcium 7.5 L Total Bilirubin AST ALT Alkaline Phosphatase Total Creatine Kinase 308 Total Protein Albumin Globulin Albumin/Globulin Ratio 03/05/20 03/05/20 03/06/20 17:05 19:25 05:38 WBC 7.38 RBC 3.99 L Hgb 11.8 L Hct 34.4 L MCV 86.2 MCH 29.6 MCHC 34.3 RDW Std Deviation 41.8 RDW Coeff of Eli 13.2 Plt Count 164 MPV 11.5 H Immature Gran % (Auto) 0.4 Neut % (Auto) 44.3 Lymph % (Auto) 29.7 Swift % (Auto) 9.6 Eos % (Auto) 15.7 Baso % (Auto) 0.3 Neut # (Auto) 3.27 Lymph # (Auto) 2.19 Swift # (Auto) 0.71 H Eos # (Auto) 1.16 H Baso # (Auto) 0.02 Immature Gran # (Auto) 0.03 H Sodium Potassium Chloride Carbon Dioxide Anion Gap BUN Creatinine Est Cr Clr Drug Dosing Est GFR ( Amer) Est GFR (Non-Af Amer) BUN/Creatinine Ratio Glucose POC Glucose 91 120 H Calcium Total Bilirubin AST ALT Alkaline Phosphatase Total Creatine Kinase Total Protein Albumin Globulin Albumin/Globulin Ratio 03/06/20 03/06/20 05:38 07:31 WBC RBC Hgb Hct MCV MCH MCHC RDW Std Deviation RDW Coeff of Eli Plt Count MPV Immature Gran % (Auto) Neut % (Auto) Lymph % (Auto) Swift % (Auto) Eos % (Auto) Baso % (Auto) Neut # (Auto) Lymph # (Auto) Swift # (Auto) Eos # (Auto) Baso # (Auto) Immature Gran # (Auto) Sodium 138 Potassium 4.3 D Chloride 108 H Carbon Dioxide 24 Anion Gap 6.0 BUN 48 H Creatinine 1.99 H D Est Cr Clr Drug Dosing 52.5 Est GFR ( Amer) 43.5 Est GFR (Non-Af Amer) 37.5 BUN/Creatinine Ratio 24.3 H Glucose 144 H POC Glucose 128 H Calcium 7.6 L Total Bilirubin 0.2 AST 28 ALT 22 Alkaline Phosphatase 116 Total Creatine Kinase Total Protein 5.8 L Albumin 2.1 L Globulin 3.7 Albumin/Globulin Ratio 0.6 L PG Care Time/CCT Total # of Minutes Spent Total Time Spent with Patient: Total time spent is greater than 50% in coordination of care (as documented) at patient's floor/unit and/or counseling patient: Coding Level of Care Code 81502 Subseq Hosp Care Lvl 3 Diagnoses BUBBA (acute kidney injury) N17.9 Diabetes mellitus E11.9 CKD (chronic kidney disease) N18.9
--- NOTE | 2020-03-06 16:49 | Med Student Discharge Summary ---
Date of Service March 06, 2020 Admission HPI Per Admitting Provider Pt is a 58yo gentleman with a PMHx significant for MT with stent placement, Hx of CABG and defibrillator placement, uncontrolled diabetes with left BKA, tobacco abuse, Tourette's syndrome and antisocial personality disorder who was admitted for ACS rule-out. Pt states he recently moved to the area after being in [facility] with a friend for the last 3 months. The living situation was not the best so he moved to [facility] to be with his girlfriend. Before [place] he lived in [place] with his mother after his left him. States he has a significant cardiac Hx with uncontrolled diabetes. Presenting t jalyn after having unrelenting chest pressure, 8/10, nonradiating but associated with SOB, sweats and numbness or tingling down the arm. States he had a similar episode a few days ago that went away. States in both instances he was active before and resting when the pain started. States he ran out of his nitroglycerin medication so could not take anything when he had the pain. Has a Hx of CABG done in 2017 at the [facility] in [place] and implantation of a defibrillator after he "passed out" while walking his dog in 2016 at [facility] in [place]. Currently a smoker of 1ppd, off and on since age 37, Fam Hx of father with DM and heart disease. Denies excessive alcohol use as well as recreational drug use. Says girlfriend has medical marijuana. 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 Had BBQ chicken for dinner last night. Lives at home with his girlfriend in a [address] house. ED course: 500 NSS bolus, aspirin 324mg, nitrostat SL 0.4mg Admission Exam (Per Admitting) Constitutional WD/WN, vitals as above no acute distress ENMT external ear and nose normal, oropharynx normal Neck normal visual inspection Respiratory normal respiratory effort, lungs clear to auscultation Cardiovascular RRR, no murmur, no edema Gastrointestinal (Abdomen) normal bowel sounds, soft, nontender, no hepatosplenomegaly Skin no rashes, warm and dry Genitourinary + CVA tenderness (Right sided) Discharge Data Consultations 03/03/20 15:11 ED Decision to Admit Stat 03/03/20 18:42 Consult Cardiology Routine 03/05/20 09:11 Consult Nephrology Routine 03/05/20 10:19 Consult Case Management - Discharge Planning Stat Diabetes Follow Up Diabetes Follow Up: Diabetes Follow-up Needed for HgbA1c >9% Hospital Course (1) Chest pain: Billy Mensah is a 54-year-old male with an extensive cardiac history of MT with stent placement, CABG, and defibrillator placement who presented with continuous chest pain and was admitted for ACS rule out. Workup did not reveal any acute ischemic process, but echocardiogram showed several structural changes secondary to previous myocardial infarctions and longstanding hypertension. No changes were made to the follow medications: ASA 81 mg PO daily, isosorbide mononitrate 90 mg PO daily, nitroglycerin 0.4 mg PRN, and atorvastatin 80 mg PO HS. Due to his renal function, Losartan and furosemide are being held until outpatient follow up with nephrology on 03/26/20 and amlodipine dose has been increased from 5 mg to 10 mg to try to compensate for the medications that are being held He will follow up with Dr. Salas on 03/25/20. Following admission, Billy was found to have nonoliguric BUBBA. Creatinine peaked at 2.92 and had downtrended to 1.99 on the day of discharge. BUN:Cr ratio >20% and FENa <1% raised suspicion for prerenal etiology. Following a consult from Dr. Merrill of Nephrology, the BUBBA is believed to be due to ATN related to prerenal physiology and hyperglycemia. There is also suspicion for underlying diabetic renal disease and possible Type 4 RTA. The importance of a low potassium diet and tight blood sugar control was discussed between the patient and Dr. Merrill. Losartan and furosemide are being held at this time and the amlodipine dose has been increased from 5 mg to 10 mg daily. Billy will be obtaining blood work on 03/10/20 and following up with Dr. Merrill in clinic on 03/26/20, during which his kidney function and medication regimen will be discussed. Billy has uncontrolled Type II diabetes with a most recent HbA1c of 15.0, which he attributes to going several weeks without insulin due to financial issues. He recently moved from [place] to [place] to live with his girlfriend and make positive changes in his life. He has been instructed to take Basaglar insulin 15 units each morning and Basaglar 10-15 units each night. He was also experiencing right flank pain at the time of admission. He has a history of 8-10 renal calculi per patient history. However, CT scan did not show evidence of urinary calculi or hydronephrosis and the flank pain resolved by the time of discharge without any targeted intervention. The CT scan also showed an incidental finding of nephrolithiasis, and Billy endorses a history of intermittent biliary colic. However, he does not have any indications or desire for further management at this time. 1. Chest pain/ACS rule-out -chest pain and pressure has resolved. -Troponin negative x3 -EKG with NSR -Continue home metoprolol succinate 50 mg, isosorbide mononitrate 90 mg, and ASA 81 mg -Hold Losartan and Furosemide until Nephrology appointment on 03/26/20 -Increase Amlodipine dose from 5 mg to 10 mg PO daily for adequate blood pressure control until Nephrology appointment -Lipid panel obtained: Total cholesterol 154, LDL 46, HDL 41, ratio 4, TG 337. * Continue Atorvastatin 80 mg PO qhs -Echocardiogram obtained * Normal LV size with mildly reduced systolic function. EF 40-45%. * Akinesis of inferior wall with severe hypokinesis of the base to the mid inferoseptum. * Moderate LV concentric hypertrophy -Cardiology consulted, appreciate recs 2. Uncontrolled Type II Diabetes Mellitus -HbA1c significantly elevated at 15.0. Patient attributes this to being without medication for several weeks (financial issues). * Insulin-depended managed with insulin glargine (28 units SQ hs) and insulin aspart (10 units SQ UD) * Patient recently moved to [place] and is in need of outpatient management. Primary care management is being arranged * Glycemic pharmacist consulted for inpatient management 3. Acute Kidney Injury Creatinine of 2.00 on admission, increased to 2.46 on 03/04 and 2.92 on 03/05. 1.99 on day of discharge (03/06) -BUN:Cr ratio >20:1 and FENa <1%, suggesting likely prerenal etiology. The patient's baseline Cr is unknown but likely elevated secondary to uncontrolled diabetes -Renal Ultrasound performed. No asymmetry or evidence of ALBERTO. -Nephrology consulted. Believes clinical presentation is suggestive of acute tubular necrosis related to prerenal physiology, hyperglycemia, and medications. 4. Hypertension -Hold Losartan 5. Right flank pain -CT obtained. * No evidence of urinary calculi or hydronephrosis * Cholelithiasis without obstruction * Fat-containing umbilical and ventral hernias -Flank pain resolved as of 03/06 6. Antisocial Personality Disorder -Managed with home dose of citalopram 40 mg 7. History of Back Pain and BKA -Managed with home dose of Oxycodone 10 mg PRN 8. Insomnia -Managed with home dose of zolpidem 5 mg PRN 9. History of Tobacco Use Patient provided with a nicotine patch during hospitalization due to history of smoking 1 pack per day of cigarettes. He has attempted to quit previously but was unsuccessful. He states that he is interested in smoking cessation moving forward l Discharge Plan Discharge Items Patient Disposition: Home - Self-Care Reason For Visit: ACS RULE-OUT, ELECTROLYTE ABNORMALITIES Discharge Diagnosis: Acute Kidney Injury Activity: Resume your previous activity Non-emergency contact: Primary Care Provider and Drapery Hanger Call non-emergency contact if: your symptoms worsen Follow-up/Referrals: Stanislav Salas MD [Physician] - 03/25/20 11:30 am Shravan Merrill DO [Physician] - 03/26/20 11:00 am Landon Johnston DO [Primary Care Provider] - 03/24/20 1:10 pm Diet: Carb Consistent or DM2 and Heart Healthy Ambulatory Orders: Basic Metabolic Panel (Routine) Timeframe: 20200310 Location: Determined by Patient Ordered By: Althea Dunne Attending Provider Instructions: You were hospitalized at [facility] for chest pressure, however there was no evidence that you sustained a heart attack. Cardiology was consulted and recommend you follow up with them as an outpatient to get your defibrillator synced to their event recording device monitor. This appointment was scheduled for you, 03/25/20 at 11:30am. While you were in the hospital, your hemoglobin A1c, a marker of diabetes, was significantly elevated to 15. You told us it was down from 19, which is an improvement, although it is still twice as high as we would like it to be. You said you were without your medication for several weeks before moving to [place] - your improvement is likely from having restarted them. Please continue to take Basalgar Insulin 15 units SC each morning, and Basalgar 10-15 units SC at night. The function of your kidneys was also found to be compromised while in the hospital. This is likely from your uncontrolled diabetes. We talked about how elevated blood sugar causes you to loose water from your body through your u rine. As a result, your kidneys get "dehydrated" even though you may feel as though you are drinking enough fluids. We treated you with IV fluids while in the hospital, and your kidney function improved while under our care. We also cons nephrology, or kidney specialist for further guidance. His recommendations were as follows: do not take your furosemide (lasix) or your losartan (a blood pressure medicine) until you see him for follow up in the office next week. Since we are temporarily holding the lasix and the losartan, your blood pressure may increase. We recommend doubling your amlodipine dose (from 5 to 10mg, daily) in the meantime to adequately treat your blood pressure (prevent it from going too high). Do you best to stay orally hydrated (drink at least 64 fluid ounces of water) over the next few days. The kidney specialist Dr. Merrill also recommend you follow a low potassium diet (see attached handout for more instructions). We want to check your kidney function again on 03/10/20. We have placed orders for blood work to be drawn on Tuesday. Pending Studies at Discharge: No Stand-Alone Forms: My [facility] [employer], Smoking Cessation Medications and DC Order Prescriptions: New amlodipine [Norvasc] 5 mg Tablet 10 mg PO DAILY 30 Days Qty: 60 RF: 0 Continued atorvastatin 80 mg Tablet 80 mg PO HS RF: 0 gabapentin 600 mg Tablet 600 mg PO QID RF: 0 citalopram 40 mg Tablet 40 mg PO DAILY RF: 0 metoprolol succinate 50 mg Tablet Extended Release 24 Hr 50 mg PO DAILY RF: 0 aspirin [Aspirin Low Dose] 81 mg Tablet,Delayed Release (Dr/Ec) 81 mg PO DAILY RF: 0 isosorbide mononitrate 60 mg Tablet Extended Release 24 Hr 90 mg PO DAILY RF: 0 nitroglycerin [Nitrostat] 0.4 mg Tablet, Sublingual 0.4 mg sublingual UD PRN (Reason: Chest Pain) RF: 0 zolpidem 5 mg Tablet 5 mg PO HS PRN (Reason: Sleep) RF: 0 Basaglar KwikPen U-100 Insulin 100 unit/mL (3 mL) Insulin Pen 28 unit SUBCUT HS RF: 0 oxycodone 10 mg Tablet 10 mg PO QID PRN (Reason: Pain) RF: 0 insulin aspart U-100 [Novolog Flexpen U-100 Insulin] 100 unit/mL (3 mL) Insulin Pen 10 unit SUBCUT UD RF: 0 Discontinued furosemide 40 mg Tablet 40 mg PO DAILY RF: 0 amlodipine 5 mg Tablet 5 mg PO DAILY RF: 0 losartan 25 mg Tablet 25 mg PO DAILY RF: 0 Discharge Orders: Discharge Order (Routine); Ordered 03/06/20 Ordered By: Althea Marshall/Other Patient Handouts: Healthy Meals for Diabetes, Diabetes: Inspecting Your Feet, Diabetes: Caring for Your Body, Kidney Disease Potassium in Diet, Diabetes and Kidney Disease, Your Diabetes Foot Care Program, Type 2 Diabetes Admission Data Admit Date/Time: 03/03/20 16:34 Attending Provider: Chuy Garcia Admit Provider: Donna Martinez Primary Care Provider: Landon Johnston Other Providers: Alverto Billings ; Robby Stewart ; Shravan Merrill Other Interventions: Discharge Summary Assessment (RN) Last Done: 03/06/20 14:47 Supervising Attestation Attending attestation Pt seen and examined in concert with Dr. Rice and Student Dr. Carlton. In agreement with the documented findings as noted in the resident documentation with any exceptions or additions as noted here. Resting comfortably in bed without complaint. Tolerated IVF overnight. On examination, S1/S2 nl RRR no MCG. CTAB. Abd NT/ND BS+ve Chest pain w/ ACS r/o - negative evaluation - cardiology consultation appreciated, will establish and follow up outpatient DMII, uncontrolled - improving glycemic control - transition to noted insulin regimen on discharge. Education provided on DM diet BUBBA - improved but still above reported baseline. Repeat BMP on Tuesday with f/u next week w/ nephrology Hyperkalemia - resolved Hyponatremia - resolved Flank pain, right - likely back (trap v. paraspinal), encourage stretching, APAP Else see resident documentation as noted.
[2020-03-07] MEDS ORDERED: AMLODIPINE BESYLATE 5 MG TAB PO SCH (09:00)
== END 2020-03-06 15:15 | disposition home or self-care (01) | DRG 313 ==
LOC: ED 13:25 → 2E 16:34 → 2S 03-04 03:10

== ENCOUNTER 2020-03-18 19:50 | Inpatient (IN) ==
[~2020-03-18 19:50] MED LIST: HEPARIN SOD (PORCINE) 1000 UNIT/ML 10 ML VIAL ONE
[2020-03-18] MEDS: EPINEPHrine 4 MG in DEXTROSE 5% HYPOTENSION IV SCH (20:00)
[2020-03-18] MEDS ORDERED: HEPARIN (PORCINE) 1000 UNIT/ML 10 ML (CATH LAB USE ONLY) ONE (20:05)
[2020-03-18] MEDS ORDERED: NiCARDipine HCL INJ 2.5 MG/ML 10 ML AMP ONE (20:05)
[2020-03-18] MEDS ORDERED: MIDAZOLAM HCL 1 MG/ML 2ML VIAL ONE (20:06)
[2020-03-18] MEDS ORDERED: fentaNYL citrate 100 MCG/2 ML VIAL ONE (20:06)
[2020-03-18] MEDS ORDERED: NITROGLYCERIN/D5W 100MCG/ML 20ML SYR ONE (20:06)
[2020-03-18] MEDS ORDERED: CALCIUM CHLORIDE 10% 10 ML SYR IV ONE (20:09)
[2020-03-18] MEDS ORDERED: SODIUM BICARB 8.4% INJ 50 MEQ/50 ML SYR IV ONE ×2 (20:09→20:30)
[2020-03-18] MEDS ORDERED: NOREPINEPHRINE BITARTRATE 1 MG/ML 4 ML VIAL (CATH LAB USE ONLY) ONE (20:20)
[2020-03-18] MEDS ORDERED: DOPamine 400MG / 250ML D5W (CATH LAB USE ONLY) ONE (20:20)
[2020-03-18 20:21] LABS: Hematocrit (blood only) 33.7 % (42-52); Mean Corpuscular Hemoglobin 30.2 pg (25-34); Mean Corpuscular Hgb Conc 32.6 g/dL (32-36); Mean Corpuscular Volume 92.6 fL (80-100); Mean Platelet Volume 10.8 fL (7.4-10.4); Platelet Count 171 K/uL (130-400); RDW Coefficient of Variation 13.7 % (11.5-14.5); RDW Standard Deviation 46.6 fL (36.4-46.3); Red Blood Count 3.64 M/uL (4.7-6.1); White Blood Count 18.58 K/uL (4.8-10.8)
[2020-03-18 20:25] LABS: iSTAT Creatinine 4.1 mg/dl (0.6-1.3); iSTAT Hemoglobin 10.9 g/dl (14.0-18.0); iSTAT Ionized Calcium 1.14 mmol/l (1.12-1.32); iSTAT Potassium 4.5 mmol/L (3.3-5.0)
--- NOTE | 2020-03-18 20:27 | XRay Report ---
XR chest 1V portable HISTORY: cardiac arrest COMPARISON: Chest 03/03/2020. FINDINGS: Left-sided single lead pacemaker/defibrillator is again noted. The heart remains mildly enl arged. Endotracheal tube terminates 3.8 cm from the willian. Perihilar interstitial and vascular thick ening consistent with mild pulmonary edema. This has progressed. No pneumothorax. Trace bilateral ple ural effusions. Hazy appearance to the periphery the right upper lobe may be due to the pulmonary liv ma. Moderate gaseous distention of the stomach which is partially visualized on this study. There are poststernotomy changes. Focal left retrocardiac density. IMPRESSION: 1. Cardiomegaly with mild interstitial pulmonary edema and trace bilateral pleural effusions. 2. The endotracheal tube terminates 3.8 cm from the willian. 3. Moderate gaseous distention of the stomach which is only partially visualized on this study. 4. Left retrocardiac density. This may represent atelectasis or pneumonia. ACT 112: Negative or not required by law. Electronically signed by: Alexi Munoz M.D. 03/18/2020 8:26 PM
[2020-03-18] MEDS ORDERED: EPINEPHrine (STAT use only) 2 MG in D5W 250 ML IV SCH (20:30)
[2020-03-18 20:37] LABS: Albumin Level 2.2 gm/dl (3.4-5.0); BUN Creatinine Ratio 10.7 (10-20); Blood Urea Nitrogen 46 mg/dl (7-18); Calcium 8.9 mg/dl (8.5-10.1); Carbon Dioxide 15 mmol/L (21-32); Chloride 101 mmol/L (98-107); Est GFR (Non-African American) 14.7; Glucose 260 mg/dl (70-99); Magnesium 2.7 mg/dl (1.8-2.4); Potassium 4.6 mmol/L (3.5-5.1); Sodium 134 mmol/L (136-145)
[2020-03-18 20:43] LABS: INR 1.2 (0.9-1.1); Partial Thromboplastin Ratio 1.1; Prothrombin Time 12.3 Seconds (9.0-12.0)
--- NOTE | 2020-03-18 20:54 | History & Physical Report ---
Date of Service March 18, 2020 Assessment & Plan (1) Cardiac arrest: Billy Mensah is a 54-year-old male with a past medical history of CKD, FL& CAD with ICD, and uncontrolled type 2 diabetes with A1c of approximately 15 who presented as a CODE BLUE converted to a heart alert in route by EMS. Cardiac arrest with ROSC, history of FL and ACS with ICD, history of current tobacco use -Patient undergoing emergent cardiac catheterization Epinephrine drip per ICU - Post arrest protocol/cooling per ICU Hold home medications including atorvastatin 80 mg p.o. nightly, metoprolol succinate 50 mg p.o., isosorbide mononitrate 90 mg p.o., and aspirin 81 mg daily p.o. in the setting of n.p.o. Uncontrolled type 2 diabetes mellitus Last A1c 15.0% Hold home anti-glycemic's ICU hyperglycemia protocol BUBBA on CKD Creatinine at last discharge approximately 2.0, unclear baseline likely ap proximately 2.0 Prior renal ultrasound with no asymmetry or evidence of ALBERTO Acutely elevated to 4.32 in the setting of cardiac arrest Hold home medications, arrest management as above BMP daily Antisocial personality disorder Home citalopram held Hypertension Home losartan held Hold amlodipine/metoprolol On pressors as above DVT prophylaxis: SCDs, further management per ICU post procedure Diet: N.p.o. CODE STATUS: Full code per historical review and EMS arrival Disposition: ICU (2) CKD (chronic kidney disease): (3) BUBBA (acute kidney injury): (4) CAD (coronary artery disease): (5) Diabetes mellitus: (6) CAD (coronary artery disease): History of Present Illness Chief Complaint: Cardiac arrest Primary Care Provider: Landon Johnston DO Billy Mensah is a 54-year-old male with a past medical history of CKD, FL& CAD with ICD, and uncontrolled type 2 diabetes with A1c of approximately 15 who presented as a CODE BLUE converted to a heart alert in route by EMS.Per chart review patient was recently seen on 03/03/2020 admitted for ACS rule out. At that time he had an BUBBA to creatinine of 2.0, unclear baseline. Hemoglobin A1c was 15.0 and due to being without medication for several weeks due to financial issues. Per emergency medical services report patient was at home when he collapsed in front of his who called EMS. No bystander CPR was performed in the field. EMS arrived at the scene within approximately 5 to 6 minutes. On arrival patient was found to be pulseless. CPR was performed and patient received 5 doses of epinephrine, 1 ca gluconate, and 1 amp bicarb in route with ROSC. On arrival to the emergency department patient became pulseless and chest compressions were resumed for PEA. Patient received 1x additional epinephrine and an additional amp of bicarb. ROSC was again achieved. [id number] testing showed a sodium of 4.5. Epinephrine gtt was initiated and patient was transferred for cardiac catheterization. Medical history: Reviewed in EMR, unavailable from patient Surgical history:Reviewed in EMR, unavailable from patient Medication history:Reviewed in EMR, unavailable from patient Social history:Reviewed in EMR, unavailable from patient Allergies: Reviewed in EMR, unavailable from patient CODE STATUS: Full code,Reviewed in EMR, unavailable from patient Allergies Allergy/AdvReac Type Severity Reaction Status Date / Time bee venom protein (honey bee) Allergy Unknown Unverified 03/12/20 08:46 fluorescein Allergy Unknown Unverified 03/12/20 08:46 Home Medications Home Medications Medication Instructions Recorded Confirmed Type aspirin [Aspirin Low Dose] 81 mg PO DAILY 03/03/20 03/12/20 History atorvastatin 80 mg PO HS 03/03/20 03/12/20 History citalopram 40 mg PO DAILY 03/03/20 03/12/20 History insulin aspart U-100 [Novolog 10 unit SUBCUT UD 03/03/20 03/12/20 History Flexpen U-100 Insulin] isosorbide mononitrate 90 mg PO DAILY 03/03/20 03/12/20 History metoprolol succinate 50 mg PO DAILY 03/03/20 03/12/20 History nitroglycerin [Nitrostat] 0.4 mg SUBLINGUAL UD PRN 03/03/20 03/12/20 History oxycodone 10 mg PO QID PRN 03/03/20 03/12/20 History zolpidem 5 mg PO HS PRN 03/03/20 03/12/20 History amlodipine [Norvasc] 10 mg PO DAILY 30 Days #60 tab 03/06/20 03/12/20 Rx furosemide 40 mg tablet 40 mg PO DAILY PRN #30 tab 03/12/20 03/12/20 Rx gabapentin 600 mg tablet 300 mg PO QID tab 03/12/20 03/12/20 History insulin glargine 100 unit/mL (3 15 unit SUBCUT BID ml 03/12/20 03/12/20 History mL) subcutaneous pen nitroglycerin 0.3 mg sublingual 0.3 mg SUBLINGUAL Q5M PRN #20 tab 03/12/20 03/12/20 Rx tablet Past Med/Surg History Medical History (Updated 03/19/20 @ 00:48 by Felicitas Bentley MD) CAD (coronary artery disease) Diabetes mellitus Tourettes syndrome Surgical History Hx of BKA Family History (Updated 03/12/20 @ 09:48 by Shravan Merrill DO) Father , diabetes and complications including kidney failure requiring dialysis Coronary heart disease Diabetes Kidney disease Social History (Updated 03/12/20 @ 09:48 by Shravan Merrill DO) Smoking Status: Current every day smoker Second Hand Exposure: Yes; Hx Substance Use: No Preferred Language: Telugu Communication Ability: Effective Conche Operator Required: No Beliefs That Will Affect Care: None Current Living Situation: Significant Other Current Living Situation Comment: [place] ([place]) Feels Safe at Home: Yes Review of Systems Review of Systems: Unobtainable due to endotracheal tube Physical Exam Physical Exam: General: Appears critically ill. Intubated. Not responding to external stimuli. HEENT: Pupils dilated and equal, minimally responsive to light in the setting of epinephrine administration. Pulm: Intubated, symmetrical chest rise. Intact bilaterally. Cardiac: Asystolic followed by ROSC with bradycardia. Femoral pulse palpable following ROSC. -mrg, heart sounds distant. Abdominal: Softly distended. Extremities: Left BKA. Right extremity intact. Patient not moving extremities, unable to follow commands. Extremities dry, cool. Sensation testing unable to be performed. Supervising Physician Co-Signing Physician Notes Patient seen and examined, chart reviewed, case discussed with Dr. Galindo and I agree with assessment and plan as documented above. Briefly, patient is a 54-year-old male with history of coronary artery disease status post multiple stents and bypass grafting in 2017, AICD in place, peripheral vascular disease, poorly controlled diabetes, CKD brought in by ambulance status post out of hospital cardiac arrest with ROSC attained. Labs and images reviewed Patient to be admitted to MICU for therapeutic hypothermia per protocol Device interrogation Check 2D echo Remainder of plan as above Resident Activity Tracking Resident Involvement: Resident Care Provided Care Provided: Adult Hospital Medicine (1) CAD (coronary artery disease) Associated angina: with unstable angina Coronary Disease-Associated Artery/Lesion type: unspecified vessel or lesion type [place] vs. transplanted heart: [place] heart Qualified Code(s): I25.110 - Atherosclerotic heart disease of [place] coronary artery with unstable angina pectoris
[2020-03-18 20:57] LABS: Alanine Aminotransferase 310 U/L (12-78); Albumin Globulin Ratio 0.6 (0.9-2); Alkaline Phosphatase 202 U/L (45-117); Aspartate Aminotransferase 331 U/L (15-37); Bilirubin,Total 0.3 mg/dl (0.2-1); Globulin 3.5 gm/dl (2.5-4.0); Phosphorus 11.2 mg/dl (2.5-4.9); Total Protein 5.7 gm/dl (6.4-8.2); Troponin I 0.763 ng/ml (0-0.045)
[2020-03-18] MEDS ORDERED: ICU PROTOCOL FOR HYPERGLYCEMIA PRN (21:42)
[2020-03-18] MEDS ORDERED: MEPERIDINE HCL 25 MG/ML CARP/VIAL IV PRN (21:42)
[2020-03-18] MEDS ORDERED: ARTIFICIAL TEARS OP OINT 3.5 GM TUBE OP PRN (21:42)
[2020-03-18] MEDS ORDERED: PROPOFOL BOLUS FROM BAG IV PRN (21:42)
[2020-03-18] MEDS ORDERED: fentaNYL DRIP 1,250 MCG/250 ML BAG IV PRN (21:42)
[2020-03-18] MEDS ORDERED: STAT IV Infusion **Titration per Protocol STA (21:42)
[2020-03-18] MEDS ORDERED: FENTANYL BOLUS FROM BAG IV PRN (21:42)
--- NOTE | 2020-03-18 21:42 | Critical Care Consultation ---
Date of Consultation March 18, 2020 Assessment & Plan (1) Admitted to intensive care unit: Reason Critically Ill: 54-year-old male status post outside hospital cardiac arrest with successful ROSC in the field with estimated downtime of 15 to 20 minutes presenting with slight ST elevations noted inferiorly and laterally requiring close hemodynamic monitoring and therapeutic hypothermia protocol. NEURO - * CAM ICU: Unable to assess 2/2 level of consciousness and sedation. * Sedation: Propofol * Pain: Fentanyl * Post Arrest: * Estimated down time 15-20 minutes. * Myoclonic jerking noted on arrival. * No response to painful stimuli. * Possible seizure like activity noted with rhythmic myoclonic jerking of the jaw. * Will address w/ Propofol gtt and Versed PRN pushes. * AM EEG ordered. * CT Head shows early cerebral edema. * TTM instituted. * Likely poor prognosis. CARDIAC/VASCULAR - * Cardiac Arrest w/ ROSC after ~15-20 min. * ST elevations inferiorly/laterally post ROSC. * Unable to cath emergently. * Significant cardiac history. * Patient will require stabilization overnight and will be reassessed tomorrow by interventionalist. * Repeat EKG shows NSR w/o ST elevations. * Will institute Heparin gtt w/o bolus. * TTM instituted w/ goal temp of 33'C. * Vasopressors as needed. * AM Echo ordered. * Echo (03/04): EF 40-45%, Inferior Akinesis, Hypokinesis at base. * Monitor on telemetry. RESPIRATORY - * Respiratory failure w/ hypoxia on presentation: * Intubated in the field. * CXR w/ ??LEFT retrocardiac infiltration and pulmonary edema. * Initially requiring high PEEP (12 cmH2O) and 100% FiO2. * Quickly able to decrease ventilator settings. * Will add CT chest w/o contrast while imaging brain. * Patient is a smoker and did just travel long distance. No personal or family h/o clotting. ABG more indicative of respiratory acidosis. Appears to be oxygenating well and w/ CO2 retention. While PE is certainly is on the differential, patient has quickly stabilized from a respiratory status and he will be placed on a Heparin gtt regardless. GI/NUTRITION - * Transaminitis: * Likely shock liver in the setting of hypoperfusion. * Will add CT abd/pelvis while imaging brain. * Will image liver as well. * Prophylaxis: Protonix RENAL/LYTES - * BUBBA: * Prerenal in the CKD patient s/p arrest. * Will aggressively resuscitate w/ IVF. * Replace Lytes as needed. * Currently making urine. * Patient concerning for possible progression for need for HD. Broached this topic w/ the Patient's mother and she states that she would want all things done at this time. * Will continue to trend Lytes q4h. * Anticipate need for correction of hyperkalemia. * IVF: NSS@125mL/hr - * Canales in place - Strict I&Os. ENDO - * DMII w/ hyperglycemia * Will require insulin gtt. HEME - * Stable H&H on presentation. * Will trend while instituting Heparin gtt. ID - * Leukocytosis initially: * While this may likely be stress induced, will cover w/ empiric antibiotics (Zosyn) while evaluating transaminitis and ??LEFT infiltrative change. LINES/IV ACCESS - * PIVs x2 * RIGHT Femoral CVL - Cooling Catheter * LEFT Radial A-line * ET Tube * Canales - Temperature Sensing * OG DVT PROPHYLAXIS - * Heparin gtt * SCDs I have personally spent 84 minutes of critical care time in the direct management of this patient. This is a life/limb threatening event. This includes time spent evaluating patient, direct bedside care, chart review, placing orders, interpretation of diagnostic studies, discussion with consultants, patient, and family members, as well as other required patient management activities. This time is exclusive of all separately billable procedures, and teaching time and separate from and in addition to any other critical care service time. Thank you for allowing us to participate in the care of this patient. Please refer to my attending physician's documentation for any further recommendations. (2) Cardiac arrest: (3) Respiratory failure: (4) BUBBA (acute kidney injury): (5) CAD (coronary artery disease): (6) ICD (implantable cardioverter-defibrillator), single, in situ: (7) Diabetes mellitus: (8) HTN (hypertension): History of Present Illness Attending Physician: Lore Sharpe DO History of Present Illness Patient is a 54-year-old male with a significant past medical history of coronary artery disease status post stenting in 2016 followed by CABG in 2016 and ICD placement in 2017, diabetes, and kidney disease. Patient has recently moved to this area from the [facility]. In conversation with patient's mother, apparently today from 8 to 10 AM, the patient was very lethargic and tired appearing. He apparently was hard to arouse this morning and had some frothy sputum around his mouth this morning when they woke him up. After 10 AM, the patient was awake, alert, and oriented and at his baseline and without any complaints. He rode with his family from [facility] to the [facility]. Upon arrival, the patient became unresponsive and turned "purple" per the patient's mother. EMS was contacted immediately. No CPR was initiated until EMS arrived. This was approximately 5 to 7 minutes. High- quality CPR as well as 5 rounds of epinephrine, calcium chloride, and 1 amp of sodium bicarb was administered with return of spontaneous circulation. Estimated downtime 15 to 20 minutes. Patient was intubated in the field. Transferred EKG was concerning for inferior and lateral ST elevations. Heart alert was called. Upon arrival in the emergency department, the patient was in a sinus rhythm. Shortly after arrival, the patient began to bradycardia down and eventually lost pulse with what appeared to be PEA. Compressions were started and the patient received 1 amp of epinephrine and 1 amp of sodium bicarbonate with return of spontaneous circulation after approximately 2 minutes. Central line was placed by emergency department staff and patient was transferred to the catheterization suite on an epinephrine drip. While in the catheterization suite, an additional heart alert was called and the patient was immediately brought to the ICU for further stabilization prior to reassessment for need for emergent catheterization. Upon evaluation in the ICU, the patient is intubated and with occasional myoclonic jerking and rhythmic jerking of his jaw. He is unresponsive to painful stimuli. He is unable to contribute to history of present illness. Allergies Allergy/AdvReac Type Severity Reaction Status Date / Time bee venom protein (honey bee) Allergy Unknown Unverified 03/12/20 08:46 fluorescein Allergy Unknown Unverified 03/12/20 08:46 Home Medications Home Medications Medication Instructions Recorded Confirmed Type aspirin [Aspirin Low Dose] 81 mg PO DAILY 03/03/20 03/12/20 History atorvastatin 80 mg PO HS 03/03/20 03/12/20 History citalopram 40 mg PO DAILY 03/03/20 03/12/20 History insulin aspart U-100 [Novolog 10 unit SUBCUT UD 03/03/20 03/12/20 History Flexpen U-100 Insulin] isosorbide mononitrate 90 mg PO DAILY 03/03/20 03/12/20 History metoprolol succinate 50 mg PO DAILY 03/03/20 03/12/20 History nitroglycerin [Nitrostat] 0.4 mg SUBLINGUAL UD PRN 03/03/20 03/12/20 History oxycodone 10 mg PO QID PRN 03/03/20 03/12/20 History zolpidem 5 mg PO HS PRN 03/03/20 03/12/20 History amlodipine [Norvasc] 10 mg PO DAILY 30 Days #60 tab 03/06/20 03/12/20 Rx furosemide 40 mg tablet 40 mg PO DAILY PRN #30 tab 03/12/20 03/12/20 Rx gabapentin 600 mg tablet 300 mg PO QID tab 03/12/20 03/12/20 History insulin glargine 100 unit/mL (3 15 unit SUBCUT BID ml 03/12/20 03/12/20 History mL) subcutaneous pen nitroglycerin 0.3 mg sublingual 0.3 mg SUBLINGUAL Q5M PRN #20 tab 03/12/20 03/12/20 Rx tablet Patient History Medical History CAD (coronary artery disease) Diabetes mellitus Tourettes syndrome Surgical History Hx of BKA Family History Father , diabetes and complications including kidney failure requiring dialysis Coronary heart disease Diabetes Kidney disease Social History Smoking Status: Current every day smoker Second Hand Exposure: Yes; Hx Substance Use: No Preferred Language: Setswana Communication Ability: Effective Planograph Operator Required: No Beliefs That Will Affect Care: None Current Living Situation: Significant Other Current Living Situation Comment: [place] (GF) Feels Safe at Home: Yes Review of Systems Review of Systems: Unobtainable due to cognitive status, Unobtainable due to endotracheal tube and Unobtainable due to reduced consciousness Physical Exam Physical Exam: VITAL SIGNS - Vital signs and nursing notes were reviewed. GENERAL - 54-year-old male appearing older than his stated age who is in active extremis. HEAD - NC/AT. EYES - RIGHT pupil slightly larger than left but both reactive to light. EARS - No deformities of external structures noted on gross examination bilaterally. NOSE - Midline and without cyanosis. No epistaxis or purulent drainage noted. MOUTH/OROPHARYNX - ET Tube in place. Without perioral cyanosis. Buccal mucosa pink and moist and without leukoplakia. NECK - Neck with FROM. Supple to palpation. LUNGS - Chest wall symmetric without accessory muscle use, intercostals retractions, or central cyanosis. Abrasions noted to the anterior chest wall. Normal vesicular breath sounds CTA B/L. No wheezes, rales, or rhonchi appreciated. CARDIAC - RRR with S1/S2. No murmur, rubs, or gallops appreciated. ABDOMEN - Abdominal contour obese without pulsations or visible masses. BS normoactive all four quadrants. No tenderness, palpable masses, hepatosplenomegaly, or ascites noted. EXTREMITIES - No clubbing or peripheral cyanosis. LEFT Lower extremity AKA. No pretibial edema present. +3/5 radial and dorsalis pedis pulses palpated throughout. NEUROLOGIC - Occasional myoclonic jerks of the bilateral upper extremities. No posturing noted. Occasional rhythmic myoclonic jerking of the jaw. RIGHT pupil greater in size than the left. Each reactive to light. No response to painful stimuli. Results & Data Results & Data ([facility]) Vital Signs (Past 12 Hours) Vital Signs Pulse Resp BP Pulse Ox 03/18/20 21:00 72 31 H 100 03/18/20 20:14 28 H 03/18/20 20:12 80 115/70 85 L 03/18/20 20:10 85 88 L 03/18/20 20:08 89 119/88 03/18/20 20:05 100 H 207/109 H 03/18/20 20:01 110 H 03/18/20 19:57 100 H 59/40 L 79 L 03/18/20 19:54 46 L 18 96/71 L 03/18/20 19:50 43 L 18 Coding Level of Care Code Critical Care 1st 30-74 mins Diagnoses Admitted to intensive care unit Z78.9 Cardiac arrest I46.9 Respiratory failure J96.90 BUBBA (acute kidney injury) N17.9 CAD (coronary artery disease) I25.110 Associated angina: with unstable angina Coronary Disease-Associated Artery/Lesion type: unspecified vessel or lesion type [place] vs. transplanted heart: [place] heart ICD (implantable cardioverter-defibrillator), single, in situ Z95.810 Diabetes mellitus E11.9 HTN (hypertension) I10 Time Spent (min) 84 (1) CAD (coronary artery disease) Associated angina: with unstable angina Coronary Disease-Associated Artery/Lesion type: unspecified vessel or lesion type [place] vs. transplanted heart: [place] heart Qualified Code(s): I25.110 - Atherosclerotic heart disease of [place] coronary artery with unstable angina pectoris
[2020-03-18] MEDS: propofoL 1,000 MG/100 ML VIAL IV SCH (22:39)
[2020-03-18] MEDS: NOREPINEPHRINE BIT INJ 8 MG in DEXTROSE 5% 500 ML IV SCH (22:39)
[2020-03-18 22:41] LABS: BUN Creatinine Ratio 11.8 (10-20); Blood Urea Nitrogen 51 mg/dl (7-18); Calcium 8.3 mg/dl (8.5-10.1); Carbon Dioxide 14 mmol/L (21-32); Chloride 100 mmol/L (98-107); Est GFR (African American) 16.9; Est GFR (Non-African American) 14.6; Glucose 312 mg/dl (70-99); Magnesium 2.5 mg/dl (1.8-2.4); Potassium 4.3 mmol/L (3.5-5.1); Sodium 134 mmol/L (136-145)
[2020-03-18] MEDS: SODIUM CHLORIDE 0.9% 1000ML 1,000 ML IV SCH (22:41)
[2020-03-18 22:44] LABS: iSTAT Art Bld Gas pCO2 Correct 33 mmHg (35-46); iSTAT Art Bld Gas pH Corrected 7.217 (7.35-7.45); iSTAT Arterial Blood Gas HCO3 14 meg/L (19-24); iSTAT Arterial Blood Gas pCO2 35 mmHg (35-46); iSTAT Arterial Blood Gas pO2 251 mmHg (80-95); iSTAT Arterial Blood Gas pO2 C 245; iSTAT Carbon Dioxide 15 mmol/L (24-31); iSTAT FiO2 50 %; iSTAT Hematocrit 31 % (42-52); iSTAT Hemoglobin 10.5 g/dl (14.0-18.0); iSTAT Site Art Line; iSTAT Sodium 133 mmol/L (135-144)
[2020-03-18 22:59] LABS: Beta-Hydroxybutyrate 10.35 mg/dl (0.2-2.81); Creatine Kinase MB 18.7 ng/ml (0.5-3.6)
[2020-03-18 23:02] LABS: Phosphorus 8.7 mg/dl (2.5-4.9)
--- NOTE | 2020-03-18 23:27 | Cardiology Consultation ---
Date of Consultation March 18, 2020 Assessment & Plan (1) Cardiac arrest: 2. Coronary disease post prior LA, multiple PCI and CABG 3. Ischemic cardiomyopathy, EF 40 to 45% with inferior wall motion abnormality post single-chamber AICD 4. Hypoxic/hypercarbic respiratory failure 5. Acute kidney injury 6. Suspected anoxic brain injury 7. Poorly controlled type 2 diabetes 8. PAD post left BKA At present patient hemodynamically and electrically stable on de-escalating pressors. Dynamic ST changes resolved, only mildly elevated troponin after arrest. No indication for emergent catheterization/PCI currently. Etiology of patient's cardiac arrest unclear. Reportedly initially PEA but with patient's cardiac history, recent admission for chest pain some concern for ACS induced event. Ischemic evaluation reasonable at some point pending neurologic and renal status. For now though recommend initiation of cooling protocol, heparin infusion, trend troponins, repeat echocardiogram. Reassess need for catheterization in a.m. History of Present Illness Attending Physician: Lore Sharpe DO History of Present Illness 54-year-old man seen emergently in the ED after heart alert activated in route by EMS after cardiac arrest. Per ED staff patient reportedly had a witnessed arrest this evening but without initial bystander CPR. PEA upon EMS arrival and received at least 5 doses of epi in the field. Additional PEA arrest in ED before ROSC after additional epi. ECG from field showed borderline inferior ST elevations. In ED patient intuba phillip, placed on epinephrine drip. On initial gas he was hypercarbic, hypoxic with initial pH of 6.9. He was unresponsive, borderline reactive pupils. Prognosis thought poor but decision made to proceed with diagnostic angiography and cooling catheter placement. Prior to procedure another patient presented with an acute LA and catheterization postponed. Patient taken to ICU where he remained hemodynamically stable with de-escalation of pressors, and had improved oxygenation on reduced ventilator support. Repeat ECG showed resolved inferior ST elevations and unchanged from prior EKG on 03/03/2020. Initial troponin 0.763. Patient's prior history remarkable for coronary artery disease prior LA with stent placement in 2012 in [address] [facility] in 2017. Single-chamber ICD placed in 2016. Poorly controlled diabetes with last A1c of 15. Ischemic cardiomyopathy with EF of 40 to 45% with inferior akinesis, severe peripheral vascular disease post left BKA, tobacco abuse and chronic kidney disease. He was admitted to [facility] 03/03/2020 with chest pain. Troponins negative, no acute EKG changes. Echo as above. Course complicated by BUBBA with creatinine up to 2.9, most recently down to 1.3 Allergies Allergy/AdvReac Type Severity Reaction Status Date / Time bee venom protein (honey bee) Allergy Unknown Unverified 03/12/20 08:46 fluorescein Allergy Unknown Unverified 03/12/20 08:46 Home Medications Home Medications Medication Instructions Recorded Confirmed Type aspirin [Aspirin Low Dose] 81 mg PO DAILY 03/03/20 03/12/20 History atorvastatin 80 mg PO HS 03/03/20 03/12/20 History citalopram 40 mg PO DAILY 03/03/20 03/12/20 History insulin aspart U-100 [Novolog 10 unit SUBCUT UD 03/03/20 03/12/20 History Flexpen U-100 Insulin] isosorbide mononitrate 90 mg PO DAILY 03/03/20 03/12/20 History metoprolol succinate 50 mg PO DAILY 03/03/20 03/12/20 History nitroglycerin [Nitrostat] 0.4 mg SUBLINGUAL UD PRN 03/03/20 03/12/20 History oxycodone 10 mg PO QID PRN 03/03/20 03/12/20 History zolpidem 5 mg PO HS PRN 03/03/20 03/12/20 History amlodipine [Norvasc] 10 mg PO DAILY 30 Days #60 tab 03/06/20 03/12/20 Rx furosemide 40 mg tablet 40 mg PO DAILY PRN #30 tab 03/12/20 03/12/20 Rx gabapentin 600 mg tablet 300 mg PO QID tab 03/12/20 03/12/20 History insulin glargine 100 unit/mL (3 15 unit SUBCUT BID ml 03/12/20 03/12/20 History mL) subcutaneous pen nitroglycerin 0.3 mg sublingual 0.3 mg SUBLINGUAL Q5M PRN #20 tab 03/12/20 03/12/20 Rx tablet Patient History Medical History (Updated 03/18/20 @ 20:46 by Michael Galindo MD) CAD (coronary artery disease) Diabetes mellitus Tourettes syndrome Surgical History Hx of BKA Family History (Updated 08/19/20 @ 09:48 by Shravan Merrill DO) Father , diabetes and complications including kidney failure requiring dialysis Coronary heart disease Diabetes Kidney disease Social History (Updated 03/12/20 @ 09:48 by Shravan Merrill DO) Smoking Status: Current every day smoker Second Hand Exposure: Yes; Hx Substance Use: No Preferred Language: German Communication Ability: Effective Reprint Sorter Required: No Beliefs That Will Affect Care: None Current Living Situation: Significant Other Current Living Situation Comment: [place] (GF) Feels Safe at Home: Yes Review of Systems Review of Systems: Unobtainable due to mental health condition and Un obtainable due to endotracheal tube Physical Exam Physical Exam: General: Intubated, unresponsive HEENT: Sclerae anicteric, pupils minimally react Lungs: Clear anteriorly Cardiac: Regular rate no murmurs Abdomen: Obese, soft Extremities: Warm, no edema post left BKA. 2+ radial pulses. 2+ femoral pulses bilaterally Skin: No rashes Psych: Unresponsive Results & Data ([facility]) Vital Signs (Past 12 Hours) Vital Signs Temp Pulse Resp BP Pulse Ox 03/18/20 22:40 67 32 H 99 03/18/20 21:00 72 31 H 100 03/18/20 20:53 96.1 F L 74 27 H 158/76 H 100 03/18/20 20:14 28 H 03/18/20 20:12 80 115/70 85 L 03/18/20 20:10 85 88 L 03/18/20 20:08 89 119/88 03/18/20 20:05 100 H 207/109 H 03/18/20 20:01 110 H 03/18/20 19:57 100 H 59/40 L 79 L 03/18/20 19:54 46 L 18 96/71 L 03/18/20 19:50 43 L 18 PG Care Time/CCT Total # of Minutes Spent Total Time Spent with Patient: Total time spent is greater than 50% in coordination of care (as documented) at patient's floor/unit and/or counseling patient: Coding Level of Care Code 47433 Inpt Consult Level 5 Diagnoses Cardiac arrest I46.9
--- NOTE | 2020-03-18 23:39 | Procedure Note ---
Procedure Note Date of Service March 18, 2020 Procedure: Arterial Line Placement Attending: Dr. Campbell APC: Prasad Olguin PA-C Indication: Monitoring on Pressors Anesthesia: Lidocaine 1% Emergent consent implied in the setting of cardiac arrest with need to initiate therapeutic hypothermia protocol requiring arterial line for hemodynamic monitoring. A time-out was completed verifying correct patient, procedure, site, positioning, and implant(s) or special equipment if applicable. Allens test was performed to ensure adequate perfusion. Patients LEFT wrist was prepped and draped in the usual sterile fashion. Ultrasound guidance was used to aid needle placement. A 20g Arrow arterial line was introduced into the LEFT Radial artery. Catheter was threaded, and the needle was removed with appropriate blood return. Good waveform was observed. The patient tolerated the procedure well. Confirmation of placement with ultrasound. Blood Loss: Minimal Complications: None Procedural Ultrasound Guidance: Procedure Date: 03/18/2020 Indication: Pressors, Frequent ABGs, TTM Protocol Attending: Dr. Campbell APC: Prasad Olguin PA-C Artery Identified: YES Line confirmed in Artery with ultrasound: YES Complications: NONE Patient tolerated procedure: WELL Coding CPT Codes Tubes, Drains, and Vasc Access - Tubes, Drains, and Vasc Access: [id number] Place Catheter In Artery ([id number]) [place] Procedure Codes (Charges) Tubes, Drains, and Vasc Access Procedure 1: Tubes, Drains, and Vasc Access: [id number] Place Catheter In Artery
[2020-03-18] MEDS ORDERED: DEXTROSE 50% 50 ML SYRINGE IV PRN (23:45)
[2020-03-18] MEDS ORDERED: CARBOHYDRATES FOR HYPOGLYCEMIA PO PRN (23:45)
[2020-03-18] MEDS ORDERED: GLUCOSE 40% GEL 15 GM TUBE PO PRN (23:45)
[2020-03-18] MEDS ORDERED: GLUCOSE 10 TABS/TUBE PO PRN (23:45)
[2020-03-18] MEDS ORDERED: GLUCAGON FOR INJ 1 MG VIAL IM PRN (23:45)
[2020-03-19] MEDS ORDERED: NovoLIN-R BOLUS FROM BAG IV ONE
--- NOTE | 2020-03-19 00:32 | Procedure Note ---
Procedure Note Date of Service March 19, 2020 Procedure: Femoral Central Line (Cooling Catheter) Placement Attending: Dr. Campbell APC: Prasad Olguin PA-C Indication: Central Drug Administration, Poor Venous Access, Multiple Lab Draws Necessary, etc. Anesthesia: None Emergent consent implied in the setting of cardiac arrest with need to initiate therapeutic hypothermia protocol requiring cooling catheter placement. This was discussed with family at great length at bedside who agree with all procedures necessary to help maintain life. A time-out was completed verifying correct patient, procedure, site, positioning, and implants(s) or special equipment if applicable. Patients LEFT Groin was cleansed and draped in the typical sterile fashion using Chloraprep. The Femoral Vein and Femoral Artery were identified using ultrasound. After adequate anesthetization was achieved, the Femoral Vein was cannulated under direct ultrasound guidance using an introducer needle on a syringe. Good venous blood return was maintained prior to removal of syringe from introducer needle. Using Seldinger Technique, a guide wire was advanced through the introducer needle without resistance. The introducer needle was removed and ultrasound images were obtained of the guide wire within the Femoral Vein and saved to the patients medical record. A small incision was made in penetrating fashion at the guide wire insertion site utilizing an 11 blade scalpel. The dilator was advanced to the vessel without resistance. The dilator was exchanged for the triple lumen catheter which was advanced into the vessel without resistance. The guide wire was removed intact from the catheter without issue. Claves were placed on each catheter tip with confirmation of good blood flow from each lumen. Each port was easily flushed with sterile saline. The catheter was placed at the hub and sutured in place. BioPatch was applied to the catheter and a sterile Tegaderm dressing was applied over the catheter with careful attention to sterility. Patient tolerated procedure well. No immediate complications were met. Images obtained are saved for permanent record Procedural Ultrasound Guidance: Procedure Date: 03/19/2020 Indication: Central Cooling, Poor peripheral access, Pressors, Multiple medications, Frequent lab draws Attending: Dr. Campbell APC: Prasad Olguin PA-C Artery AND Vein visualized: YES Compressible Vein: YES Guidewire or Short Catheter seen in vein prior to dilation: YES Line confirmed in Vein with ultrasound: YES Images obtained are saved for permanent record. Coding CPT Codes Tubes, Drains, and Vasc Access - Tubes, Drains, and Vasc Access: [id number] Insertion Of Non-tunneled Catheter Age 7 Yrs> ([id number]) Tubes, Drains, and Vasc Access - Tubes, Drains, and Vasc Access: [id number] Ultrasound Guidance For Vascular ([id number]) [facility] [place] Codes (Charges) Tubes, Drains, and Vasc Access Procedure 2: Tubes, Drains, and Vasc Access: [id number] Insertion Of Non-tunneled Catheter Age 7 Yrs> Procedure 3: Tubes, Drains, and Vasc Access: [id number] Ultrasound Guidance For Vascular
--- NOTE | 2020-03-19 00:34 | Emergency Department Note ---
History of Present Illness General Chief complaint: Cardiac Arrest/CPR Stated complaint: HEART ALERT Time Seen by Provider: 03/18/20 19:53 Source: patient and EMS Mode of arrival: EMS Limitations: clinical acuity (Intubated) History of Present Illness Provider complaint: Cardiac arrest This patient is a 54-year-old male who presents to the emergency department by EMS after sudden cardiac arrest. Patient was apparently talking to his significant other when she witnessed him collapsing. 911 was called however no CPR was initiated. Upon EMS arrival, the patient was found to be in agonal rhythm with no pulse. He had a total of 5 rounds of IV epi and return of spontaneous circulation. Patient did receive IV bicarb and calcium in route. Upon presenting to the emergency department patient is intubated. He developed a bradycardia and hypotension with brief loss of pulse. Patient was given additional IV epinephrine and CPR with return of circulation. Home Medications Home Medications Medication Instructions Recorded Confirmed Type aspirin [Aspirin Low Dose] 81 mg PO DAILY 03/03/20 03/12/20 History atorvastatin 80 mg PO HS 03/03/20 03/12/20 History citalopram 40 mg PO DAILY 03/03/20 03/12/20 History insulin aspart U-100 [Novolog 10 unit SUBCUT UD 03/03/20 03/12/20 History Flexpen U-100 Insulin] isosorbide mononitrate 90 mg PO DAILY 03/03/20 03/12/20 History metoprolol succinate 50 mg PO DAILY 03/03/20 03/12/20 History nitroglycerin [Nitrostat] 0.4 mg SUBLINGUAL UD PRN 03/03/20 03/12/20 History oxycodone 10 mg PO QID PRN 03/03/20 03/12/20 History zolpidem 5 mg PO HS PRN 03/03/20 03/12/20 History amlodipine [Norvasc] 10 mg PO DAILY 30 Days #60 tab 03/06/20 03/12/20 Rx furosemide 40 mg tablet 40 mg PO DAILY PRN #30 tab 03/12/20 03/12/20 Rx gabapentin 600 mg tablet 300 mg PO QID tab 03/12/20 03/12/20 History insulin glargine 100 unit/mL (3 15 unit SUBCUT BID ml 03/12/20 03/12/20 History mL) subcutaneous pen nitroglycerin 0.3 mg sublingual 0.3 mg SUBLINGUAL Q5M PRN #20 tab 03/12/20 03/12/20 Rx tablet Allergies Allergy/AdvReac Type Severity Reaction Status Date / Time bee venom protein (honey bee) Allergy Unknown Unverified 03/12/20 08:46 fluorescein Allergy Unknown Unverified 03/12/20 08:46 Past Med/Surg History Medical History (Updated 03/19/20 @ 00:48 by Felicitas Bentley MD) CAD (coronary artery disease) Diabetes mellitus Tourettes syndrome Surgical History Hx of BKA Family History (Updated 03/12/20 @ 09:48 by Shravan Merrill DO) Father , diabetes and complications including kidney failure requiring dialysis Coronary heart disease Diabetes Kidney disease Social History (Updated 03/12/20 @ 09:48 by Shravan Merrill DO) Smoking Status: Current every day smoker Second Hand Exposure: Yes; Hx Substance Use: No Preferred Language: Cuban Communication Ability: Effective Senior Policy Associate Required: No Beliefs That Will Affect Care: None Current Living Situation: Significant Other Current Living Situation Comment: [place] (GF) Feels Safe at Home: Yes Review of Systems Unobtainable due to cognitive status and Unobtainable due to endotracheal tube Physical Exam Vital Signs Vital Signs - 24 hr 03/18/20 19:50 03/18/20 19:54 03/18/20 19:57 Pulse Rate 43 L 46 L 100 H Pulse Rate from SpO2 Sensor 99 H Respiratory Rate 18 18 Respiratory Effort / Characteristics Mechanically Ventilated Blood Pressure 96/71 L 59/40 L Blood Pressure Mean 79 42 Blood Pressure Position Lying Pulse Oximetry 79 L Oxygen Delivery Method Fraction of Inspired Oxygen 100 Sepsis Recent Fever Within 48 Hours No Sepsis New/Unexplained Change in Mental Status Yes Sepsis Action Taken by Nursing Physician Notified End-Tidal CO2 34 33 03/18/20 20:01 03/18/20 20:05 03/18/20 20:08 Pulse Rate 110 H 100 H 89 Pulse Rate from SpO2 Sensor Respiratory Rate Respiratory Effort / Characteristics Blood Pressure 207/109 H 119/88 Blood Pressure Mean 145 101 Blood Pressure Position Pulse Oximetry Oxygen Delivery Method Fraction of Inspired Oxygen Sepsis Recent Fever Within 48 Hours Sepsis New/Unexplained Change in Mental Status Sepsis Action Taken by Nursing End-Tidal CO2 52 47 03/18/20 20:10 03/18/20 20:12 03/18/20 20:14 Pulse Rate 85 80 Pulse Rate from SpO2 Sensor 86 80 Respiratory Rate 28 H Respiratory Effort / Characteristics Blood Pressure 115/70 Blood Pressure Mean 80 Blood Pressure Position Pulse Oximetry 88 L 85 L Oxygen Delivery Method Mechanical Vent Mechanical Vent Fraction of Inspired Oxygen 100 Sepsis Recent Fever Within 48 Hours Sepsis New/Unexplained Change in Mental Status Sepsis Action Taken by Nursing End-Tidal CO2 47 39 Vital signs reviewed. General: Chronically ill-appearing 54-year-old male, intubated HEENT: Pupils are equal at 5 mm and not reactive bilaterally. Cardiovascular: Distant heart tones but regular and bradycardic Pulmonary: Rhonchi bilaterally but equal Abdomen: Soft, minimally distended Musculoskeletal: Left BKA, no peripheral edema. : Normal external male genitalia. Neurologic: Unresponsive. Skin: Warm, dry, no rash Procedures Central Line Placement Right Femoral: Time Out Performed: Yes Patient Placed on Monitor/Pulse Ox: Yes MD Prep: mask and gloves Central Line Prep: Chlorhexidine scrub Ultrasound Used for Placement: No Central Line Lumen Inserted: triple Post Procedure: sutured in place, good blood return, all ports aspirated, flushed, capped and sterile dressing applied Patient Tolerated Procedure: no complications Course Administered Medications Sodium Chloride (Nss 1000ml) 1,000 mls @ 125 mls/hr IV .Q8H LATRICIA Stop: 04/17/20 21:44 Last Admin: 03/18/20 22:41 Dose: 125 mls/hr Documented by: [id number] Propofol (Diprivan) 1,000 mg in 100 mls @ 12.72 mls/hr IV .Q7H52M LATRICIA; Protocol Stop: 03/21/20 21:44 Last Admin: 03/18/20 22:39 Dose: 25 mcg/kg/min, 15.9 mls/hr Documented by: [id number] Cosigned by: [id number] Fentanyl Citrate (Fentanyl Drip) 1,250 mcg in 250 mls @ 5 mls/hr IV .Q50H PRN; Protocol PRN Reason: Pain Stop: 04/01/20 21:41 Last Admin: 03/18/20 22:40 Dose: 25 mcg/hr, 5 mls/hr Documented by: [id number] Cosigned by: [id number] Norepinephrine Bitartrate 8 mg (/ Dextrose) 508 mls @ 28.27 mls/hr IV .[id number] [facility]; Protocol Stop: 04/17/20 21:59 Last Titration: 03/18/20 22:43 Dose: 0.07 mcg/kg/min, 28.3 mls/hr Documented by: [id number] Admin: 03/18/20 22:39 Dose: 0.05 mcg/kg/min, 20.2 mls/hr Documented by: [id number] Cosigned by: [id number] Discontinued Medications Epinephrine HCl 2 mg/ Dextrose 252 mls @ 80.136 mls/hr IV .Q3H9M LATRICIA; Protocol Stop: 03/18/20 22:00 Last Admin: 03/18/20 20:00 Dose: 0.1 mcg/kg/min, 80.1 mls/hr Documented by: [id number] Cosigned by: [id number] Critical Care Time Critical Care Time: Yes I have personally spent greater than 45 minutes of critical care time in the direct management of this patient. This includes bedside care, interpretation of diagnostic studies, and testing, discussion with consultants, patient, and family members, and other required patient management activities. This 45 minutes is in excess of all separately billable procedures. Medical Decision Making Differential Diagnosis Differential diagnosis: Etiologies such as cardiac ischemia, cardiac tamponade, dysrhythmia, aortic dissection, pulmonary embolism, trauma, tension pneumothorax, acute respiratory failure, electrolyte abnormality, acidosis, toxic ingestion, hypothermia, hypovolemia, intracranial event, as well as others were entertained. Medical Records Attestation: I reviewed the patient's medical records. Home Medications Current Medication List: was personally reviewed by wa Laboratory Data Attestation: I reviewed the patient's lab results. Result diagrams: 03/18/20 20:14 03/18/20 22:12 Lab Results 03/18/20 03/18/20 03/18/20 Range/Units 20:12 20:14 20:14 WBC 18.58 H (4.8-10.8) K/uL RBC 3.64 L (4.7-6.1) M/uL Hgb 11.0 L (14.0-18.0) g/dL POC Hgb 10.9 L (14.0-18.0) g/dl Hct 33.7 L (42-52) % POC Hct 32 L (42-52) % MCV 92.6 (80-100) fL MCH 30.2 (25-34) pg MCHC 32.6 (32-36) g/dL RDW Std Deviation 46.6 H (36.4-46.3) fL RDW Coeff of Eli 13.7 (11.5-14.5) % Plt Count 171 (130-400) K/uL MPV 10.8 H (7.4-10.4) fL PT (9.0-12.0) Seconds INR (0.9-1.1) APTT (21.0-31.0) Seconds PTT Ratio POC Sodium 132 L (135-144) mmol/L Sodium 134 L (136-145) mmol/L POC Potassium 4.5 (3.3-5.0) mmol/L Potassium 4.6 (3.5-5.1) mmol/L POC Chloride 102 (101-112) mmol/L Chloride 101 (98-107) mmol/L Carbon Dioxide 15 L (21-32) mmol/L POC Total CO2 16 L (24-31) mmol/L Anion Gap 18.0 H (3-11) POC Anion Gap 20.0 (16-25) mmol/L POC BUN 49 H (7-18) mg/dl BUN 46 H (7-18) mg/dl Creatinine 4.32 H (0.6-1.4) mg/dl POC Creatinine 4.1 H (0.6-1.3) mg/dl Est Cr Clr Drug Dosing Not Reportable Est GFR ( Amer) 17.0 Est GFR (Non-Af Amer) 14.7 BUN/Creatinine Ratio 10.7 (10-20) Glucose 260 H (70-99) mg/dl POC Glucose (other) 239 H (70-99) mg/dl Calcium 8.9 (8.5-10.1) mg/dl POC Ioniz Calcium Alicia 1.14 (1.12-1.32) mmol/l Phosphorus 11.2 H (2.5-4.9) mg/dl Magnesium 2.7 H (1.8-2.4) mg/dl Total Bilirubin 0.3 (0.2-1) mg/dl AST 331 H (15-37) U/L ALT 310 H (12-78) U/L Alkaline Phosphatase 202 H (45-117) U/L Troponin I 0.763 H* (0-0.045) ng/ml Total Protein 5.7 L (6.4-8.2) gm/dl Albumin 2.2 L (3.4-5.0) gm/dl Globulin 3.5 (2.5-4.0) gm/dl Albumin/Globulin Ratio 0.6 L (0.9-2) Blood Type Antibody Screen 03/18/20 03/18/20 Range/Units 20:14 20:14 WBC (4.8-10.8) K/uL RBC (4.7-6.1) M/uL Hgb (14.0-18.0) g/dL POC Hgb (14.0-18.0) g/dl Hct (42-52) % POC Hct (42-52) % MCV (80-100) fL MCH (25-34) pg MCHC (32-36) g/dL RDW Std Deviation (36.4-46.3) fL RDW Coeff of Eli (11.5-14.5) % Plt Count (130-400) K/uL MPV (7.4-10.4) fL PT 12.3 H (9.0-12.0) Seconds INR 1.2 H (0.9-1.1) APTT 31.0 (21.0-31.0) Seconds PTT Ratio 1.1 POC Sodium (135-144) mmol/L Sodium (136-145) mmol/L POC Potassium (3.3-5.0) mmol/L Potassium (3.5-5.1) mmol/L POC Chloride (101-112) mmol/L Chloride (98-107) mmol/L Carbon Dioxide (21-32) mmol/L POC Total CO2 (24-31) mmol/L Anion Gap (3-11) POC Anion Gap (16-25) mmol/L POC BUN (7-18) mg/dl BUN (7-18) mg/dl Creatinine (0.6-1.4) mg/dl POC Creatinine (0.6-1.3) mg/dl Est Cr Clr Drug Dosing Est GFR ( Amer) Est GFR (Non-Af Amer) BUN/Creatinine Ratio (10-20) Glucose (70-99) mg/dl POC Glucose (other) (70-99) mg/dl Calcium (8.5-10.1) mg/dl POC Ioniz Calcium Alicia (1.12-1.32) mmol/l Phosphorus (2.5-4.9) mg/dl Magnesium (1.8-2.4) mg/dl Total Bilirubin (0.2-1) mg/dl AST (15-37) U/L ALT (12-78) U/L Alkaline Phosphatase (45-117) U/L Troponin I (0-0.045) ng/ml Total Protein (6.4-8.2) gm/dl Albumin (3.4-5.0) gm/dl Globulin (2.5-4.0) gm/dl Albumin/Globulin Ratio (0.9-2) Blood Type A Positive Antibody Screen NEGATIVE Imaging Data Radiologist's Impression: XR chest 1V portable HISTORY: cardiac arrest COMPARISON: Chest 03/03/2020. FINDINGS: Left-sided single lead pacemaker/defibrillator is again noted. The heart remains mildly enlarged. Endotracheal tube terminates 3.8 cm from the willian. Perihilar interstitial and vascular thickening consistent with mild pulmonary edema. This has progressed. No pneumothorax. Trace bilateral pleural effusions. Hazy appearance to the periphery the right upper lobe may be due to the pulmonary edema. Moderate gaseous distention of the stomach which is partially visualized on this study. There are poststernotomy changes. Focal left retrocardiac density. IMPRESSION: 1. Cardiomegaly with mild interstitial pulmonary edema and trace bilateral pleural effusions. 2. The endotracheal tube terminates 3.8 cm from the iwllian. 3. Moderate gaseous distention of the stomach which is only partially visualized on this study. 4. Left retrocardiac density. This may represent atelectasis or pneumonia. ACT 112: Negative or not required by law. Electronically signed by: Alexi Munoz M.D. 03/18/2020 8:26 PM Dictated: 03/18/202023 Transcribed: 03/18/202023 ECG Data Attestation: I personally reviewed and interpreted this ECG as follows: Indication: + other (Cardiac arrest) Rate (beats per minute): 40 Rhythm: + sinus bradycardia ECG ST segments: + ST elevation (Inferior) ECG Findings: no PACs and no PVCs Blood Pressure Blood Pressure Findings: Low blood pressure Blood Pressure Disposition: further management by hospitalist SHAHAB Narrative This patient was evaluated and appeared to be in critical condition. He was intubated in the field with an IO in the right leg. Patient's oxygenation is borderline. He is bradycardic and became hypotensive. For a brief period of time no pulses were appreciated. The patient had very little ventricular squeeze on bedside ultrasound. Additional IV epinephrine was given well and IV epi drip was prepared. Chest x-ray was performed and reveals the ET tube in good position. A triple-lumen catheter was placed in the right femoral vein by myself. Please see my procedure note above. Heart alert was called and Dr. Iqbal did present to the bedside. The patient's neurologic status is in question at this time. He does appear to have an acute renal failure from his baseline. Creatinine is 4.32 but potassium is normal at 4.5. Patient was taken to the ICU for further management. Impression & Plan Cardiac arrest, BUBBA (acute kidney injury) Discharge Plan Visit Data Chief Complaint: Cardiac Arrest/CPR Stated Complaint: HEART ALERT ED Provider: Felicitas Bentley Discharge Problem: Cardiac arrest, BUBBA (acute kidney injury) Patient Disposition: Admitted As Inpatient Discharge Instructions Interventions: ED Discharge Assessment Last Done: 03/18/20 20:19
[2020-03-19] MEDS ORDERED: Heparin IV Low Dose *NO* Bolus IV ONE (00:37)
[2020-03-19] MEDS ORDERED: PIPERACILL/TAZOBAC CONSULT ACTIVE PRN (00:37)
[2020-03-19] MEDS: EPINEPHrine 4 MG in DEXTROSE 5% HYPOTENSION IV SCH ×3 (00:57→11:29)
[2020-03-19] MEDS ORDERED: PIPERACILLIN/TAZOBACTAM 4.5 GM in DEXTROSE 5% 100 ML IV ONE (01:00)
--- NOTE | 2020-03-19 01:11 | Billing Data ---
Date of Service March 18, 2020 Coding Level of Care Code Critical Care 1st 30-74 mins Time Spent (min) 40
[2020-03-19] MEDS: HEPARIN SODIUM/DEXTROSE 25,000 UNITS/500 ML BAG IV SCH (02:06)
[2020-03-19] MEDS: INSULIN REGULAR 250 UNITS in SODIUM CHLORIDE 0.9% 247.5 ML IV SCH (02:07)
[2020-03-19 02:38] LABS: BUN Creatinine Ratio 13.1 (10-20); Calcium 7.4 mg/dl (8.5-10.1); Creatinine Clr Calc Pharmacy 25.6 ml/min; Est GFR (Non-African American) 15.6; Phosphorus 7.7 mg/dl (2.5-4.9); Potassium 5.7 mmol/L (3.5-5.1); Troponin I 2.85 ng/ml (0-0.045)
[2020-03-19] MEDS ORDERED: SODIUM BICARB 8.4% INJ 50 MEQ/50 ML SYR IV STA (02:48)
[2020-03-19] MEDS ORDERED: CALCIUM CHLORIDE 10% 1,000 MG in SODIUM CHLORIDE 0.9% 50 ML IV STA (02:48)
[2020-03-19] MEDS ORDERED: SODIUM CHLORIDE 0.9% 1000ML 250 ML IV ONE (02:48)
[2020-03-19 02:49] LABS: Beta-Hydroxybutyrate 18.39 mg/dl (0.2-2.81)
[2020-03-19] MEDS ORDERED: ALBUMIN 25% 50 ML IV ONE (03:00)
[2020-03-19 03:37] LABS: iSTAT Art Bld Gas pCO2 Correct 26 mmHg (35-46); iSTAT Art Bld Gas pH Corrected 7.338 (7.35-7.45); iSTAT Arterial Blood Gas HCO3 15 meg/L (19-24); iSTAT Arterial Blood Gas pCO2 31 mmHg (35-46); iSTAT Arterial Blood Gas pH 7.28 (7.35-7.45); iSTAT Arterial Blood Gas pO2 89 mmHg (80-95); iSTAT Arterial Blood Gas pO2 C 68; iSTAT Carbon Dioxide 15 mmol/L (24-31); iSTAT FiO2 30 %; iSTAT Hematocrit 32 % (42-52); iSTAT Hemoglobin 10.9 g/dl (14.0-18.0); iSTAT Potassium 5.3 mmol/L (3.3-5.0); iSTAT Site Art Line; iSTAT Sodium 130 mmol/L (135-144)
--- NOTE | 2020-03-19 04:12 | Procedure Note ---
Procedure Note Date of Service March 19, 2020 Procedure: Chcf Indwelling Peripherally Inserted IV Catheter Placement Attending: Dr. Campbell APC: Prasad Olguin PA-C Indication: Need for IV Access, Poor Vascular Access Anesthesia: None Consent implied given need for PIV access and difficulty w/ traditional IV access. A time-out was completed verifying correct patient, procedure, site, positioning, and implant(s) or special equipment if applicable. Utilizing bedside ultrasound, vascularity of the RIGHT upper extremity was assessed. Vessel size was noted for appropriate catheter selection and skin was marked with gentle pressure. Patients RIGHT upper extremity was prepped and draped in the usual sterile fashion utilizing chlorhexidine. Ultrasound guidance was used to aid needle placement. A 20 g Endurance Catheter was introduced into the RIGHT Forearm vein under direct ultrasound guidance. Guide wire was easily deployed without resistance. Catheter was threaded over the guide wire without resistance and the entire apparatus was removed intact. Good venous blood return was noted in the catheter. The IV catheter was easily flushed with sterile saline flush. Sterile clave was attached to the end of the catheter and good blood return was again noted. Tourniquet was released. StatLock device and sterile dressing were applied. The patient tolerated the procedure well. Blood Loss: Minimal Complications: None Procedural Ultrasound Guidance: Procedure Date: 03/19/2020 Indication: Poor Vascular Access Attending: Dr. Campbell APC: Prasad Olguin PA-C Artery/Veins Identified: YES Access confirmed in Vein with ultrasound: YES Complications: NONE Patient tolerated procedure: WELL Coding CPT Codes Tubes, Drains, and Vasc Access - Tubes, Drains, and Vasc Access: [id number] Venipuncture, Age 5/>Req phys skill, (sep proc), Dx/Tx (not rtn) ([id number]) [facility] Procedure Codes (Charges) Tubes, Drains, and Vasc Access Procedure 4: Tubes, Drains, and Vasc Access: [id number] Venipuncture, Age 5/>Req phys skill, (sep proc), Dx/Tx (not rtn)
[2020-03-19 04:39] LABS: INR 1.2 (0.9-1.1); Partial Thromboplastin Ratio 1.4; Partial Thromboplastin Time 38.1 Seconds (21.0-31.0); Prothrombin Time 12.6 Seconds (9.0-12.0)
[2020-03-19 04:47] LABS: Basophils # (auto) 0.01 K/uL (0-0.2); Basophils % (auto) 0.1 %; Eosinophils # (auto) 0.01 K/uL (0-0.5); Eosinophils % (auto) 0.1 %; Hematocrit (blood only) 31.6 % (42-52); Hemoglobin 10.9 g/dL (14.0-18.0); Immature Granulocytes # (auto) 0.05 K/uL (0.00-0.02); Immature Granulocytes % (auto) 0.3 %; Lymphocytes # (auto) 0.59 K/uL (1.2-3.4); Lymphocytes % (auto) 3.7 %; Mean Corpuscular Hemoglobin 29.8 pg (25-34); Mean Corpuscular Hgb Conc 34.5 g/dL (32-36); Mean Corpuscular Volume 86.3 fL (80-100); Mean Platelet Volume 10.9 fL (7.4-10.4); Monocytes # (auto) 0.58 K/uL (0.11-0.59); Monocytes % (auto) 3.7 %; Neutrophils # (auto) 14.53 K/uL (1.4-6.5); Neutrophils % (auto) 92.1 %; Platelet Count 179 K/uL (130-400); RDW Coefficient of Variation 13.3 % (11.5-14.5); RDW Standard Deviation 42.7 fL (36.4-46.3); Red Blood Count 3.66 M/uL (4.7-6.1); White Blood Count 15.77 K/uL (4.8-10.8)
[2020-03-19 04:50] LABS: Albumin Level 2.5 gm/dl (3.4-5.0); BUN Creatinine Ratio 13.4 (10-20); Bilirubin Direct 0.2 mg/dl (0-0.2); Bilirubin,Total 0.4 mg/dl (0.2-1); Calcium 7.5 mg/dl (8.5-10.1); Creatinine Clr Calc Pharmacy 25.5 ml/min; Est GFR (Non-African American) 15.5; Magnesium 1.9 mg/dl (1.8-2.4); Phosphorus 5.8 mg/dl (2.5-4.9); Potassium 4.6 mmol/L (3.5-5.1); Total Protein 5.9 gm/dl (6.4-8.2)
[2020-03-19 05:01] LABS: Beta-Hydroxybutyrate 20.53 mg/dl (0.2-2.81)
[2020-03-19] MEDS: propofoL 1,000 MG/100 ML VIAL IV SCH ×2 (05:05→19:40)
[2020-03-19] MEDS: SODIUM CHLORIDE 0.9% 1000ML 1,000 ML IV SCH ×2 (05:06→19:41)
[2020-03-19] MEDS: PIPERACILLIN/TAZOBACTAM 4.5 GM in DEXTROSE 5% 100 ML IV SCH ×3 (05:06→22:00)
[2020-03-19] MEDS ORDERED: HEPARIN IV BOLUS 4,500 UNITS in SYRINGE 0 ML IV ONE (06:15)
--- NOTE | 2020-03-19 06:50 | CT Scan Report ---
CT head/brain wo con CLINICAL HISTORY: Cardiac arrest. Change in mental status. COMPARISON STUDY: No previous studies for comparison. TECHNIQUE: Axial CT of the brain is performed from the vertex to the skull base. IV contrast was not administered for this examination. A dose lowering technique was utilized adhering to the principles of ALARA. CT DOSE: FINDINGS: No intra or extra-axial mass lesions are visualized. There is no CT evidence of acute cortical infarc tion. There is no evidence of midline shift. There is no acute hemorrhage. No calvarial fractures ar e visualized. There is loss of tineo-white differentiation with effacement of the cortical sulci. Diffuse cerebellar edema is suspected. The ventricles are small suggesting diffuse cerebellar edema. There is trace fluid in the sphenoid sinus. There is maxillary and ethmoid sinus mucosal thickening. There is opacification of the posterior nasopharynx. IMPRESSION: Loss of tineo-white differentiation with effacement of the cortical sulci and small ventri cles. The findings are suggestive of diffuse cerebral edema. ACT 112: Negative or not required by law. Electronically signed by: Salvatore Balderas M.D. 03/19/2020 6:48 AM
--- NOTE | 2020-03-19 07:09 | CT Scan Report ---
CT SCAN OF THE ABDOMEN AND PELVIS WITHOUT CONTRAST CLINICAL HISTORY: Unexplained cardiac arrest COMPARISON STUDY: 03/04/2020 TECHNIQUE: CT scan of the abdomen and pelvis was performed from the lung bases to the proximal femurs . Images are reviewed in the axial, sagittal, and coronal planes. IV contrast was not administered fo r this examination. A dose lowering technique was utilized adhering to the principles of ALARA. CT DOSE: FINDINGS: Lower chest: There are coronary artery calcifications. There are bilateral pleural effusions with bas ilar opacities, atelectasis versus pneumonia versus aspiration. There is a nasogastric tube present. Liver: The unenhanced liver is normal in size, contour, and attenuation. There is no intrahepatic melba iary ductal dilatation. Gallbladder: Cholelithiasis. Spleen: Normal in size and attenuation. There is trace perisplenic fluid. Pancreas: No pancreatic masses are visualized in this noncontrast study. There is nonspecific edema i n the sameer hepatis. Adrenal glands: Unremarkable. Kidneys: No renal, ureteral, or bladder calculi are visualized. There is no hydronephrosis. Bowel: There are no transition zones indicate bowel obstruction. There is colonic diverticulosis. The re is no evidence of acute diverticulitis. The appendix appears normal. Peritoneum: There is no intraperitoneal free air or abdominal ascites. There is no free air. There is trace fluid adjacent to the spleen. There is a fat-containing umbilical hernia. There is minimal mel e pelvic fluid. Vasculature: The abdominal aorta is normal in course and caliber. Adenopathy: None. Pelvic viscera: There is an indwelling Canales catheter. There is a right femoral venous line. Skeletal structures: No destructive osseous lesions are seen. IMPRESSION: 1. No evidence of bowel obstruction. No evidence of free air 2. Normal appendix. No evidence of acute diverticulitis 3. Small amount of fluid within the pelvis as well as adjacent to the spleen. 4. Cholelithiasis with mild periportal edema. While nonspecific, the periportal edema could indicate pancreatitis or cholecystitis. 5. Bilateral pleural effusions and basilar airspace opacities ACT 112: Negative or not required by law. Electronically signed by: Salvatore Balderas M.D. 03/19/2020 7:08 AM
--- NOTE | 2020-03-19 07:14 | CT Scan Report ---
CT chest wo con CLINICAL HISTORY: Cardiac arrest COMPARISON STUDY: Chest x-ray dated 03/18/2020 CT DOSE: 2991.96 mGy.cm TECHNIQUE: CT of the thorax was performed from the thoracic inlet to the lung bases. Images are revi ewed in the axial, sagittal, and coronal planes. IV contrast was not administered for this examinatio n. A dose lowering technique was utilized adhering to the principles of ALARA. FINDINGS: Thyroid: Imaged portions of the thyroid gland are normal in appearance. Thoracic aorta: The thoracic aorta is normal in course and caliber, noting standard 3 vessel arch harris monique. Heart: There are postsurgical changes of midline sternotomy. The heart is enlarged. There is no signi ficant pericardial effusion. There is a left subclavian pacer/defibrillator present. Lungs and pleural spaces: There are small bilateral pleural effusions right greater than left. There are bilateral patchy airspace multilobar airspace opacities. This could represent aspiration, pneumon ia, or an atypical appearance of pulmonary edema. Endotracheal tube is visualized. Mediastinum: There is no evidence of pathologic mediastinal lymphadenopathy Prachi: There is no evidence of pathologic hilar adenopathy given the limitations of a noncontrast stud y Axilla: Clear. Upper abdomen: A nasogastric tube is visualized. Skeletal structures: There are multiple bilateral rib fractures, some of which are acute and some of which appear chronic. IMPRESSION: 1. Multiple bilateral rib fractures. No evidence of pneumothorax. 2. Cardiomegaly and small bilateral pleural effusions 3. Mild septal edema 4. Multifocal airspace opacities, pneumonia versus aspiration versus atypical appearance of pulmonary edema. ACT 112: Negative or not required by law. Electronically signed by: Salvatore Balderas M.D. 03/19/2020 7:13 AM
[2020-03-19 07:18] LABS: iSTAT Art Bld Gas pCO2 Correct 25 mmHg (35-46); iSTAT Art Bld Gas pH Corrected 7.445 (7.35-7.45); iSTAT Arterial Blood Gas HCO3 18 meg/L (19-24); iSTAT Arterial Blood Gas pCO2 30 mmHg (35-46); iSTAT Arterial Blood Gas pH 7.39 (7.35-7.45); iSTAT Arterial Blood Gas pO2 91 mmHg (80-95); iSTAT Arterial Blood Gas pO2 C 71; iSTAT Carbon Dioxide 19 mmol/L (24-31); iSTAT FiO2 30 %; iSTAT Hematocrit 30 % (42-52); iSTAT Hemoglobin 10.2 g/dl (14.0-18.0); iSTAT Potassium 3.6 mmol/L (3.3-5.0); iSTAT Site Art Line; iSTAT Sodium 133 mmol/L (135-144)
--- NOTE | 2020-03-19 07:18 | XRay Report ---
XR chest 1V portable CLINICAL HISTORY: Pulmonary edema. Respiratory failure COMPARISON STUDY: 03/18/2020 FINDINGS: The heart remains enlarged. There is a left subclavian pacer/defibrillator. There is an end otracheal tube positioned 52 mm above the willian. There is radiographic evidence of congestive failur e. There are small bilateral pleural effusions. There is left lower lobe atelectasis/consolidation.[ IMPRESSION: 1. Cardiomegaly and persistent mild pulmonary edema 2. Small bilateral pleural effusions 3. Left lower lobe atelectasis/consolidation ACT 112: Negative or not required by law. Electronically signed by: Salvatore Balderas M.D. 03/19/2020 7:17 AM
--- NOTE | 2020-03-19 07:36 | Ultrasound Report ---
BILIARY ULTRASOUND CLINICAL HISTORY: Abnormal CT scan COMPARISON STUDY: CT scan dated 03/18/2020 FINDINGS: The study was difficult from a technical standpoint. The study was performed bedside in intensive car e unit. The patient was intubated. The pancreas appeared normal as visualized. There is a small right pleural effusion. There is coarsened hepatic echotexture with trace perihepatic fluid. There is no right-sided hydronephrosis. There is borderline increase in renal echogenicity. There is cholelithiasis with gallbladder wall thickening. There is trace pericholecystic fluid. The common bile duct measured 6 mm. IMPRESSION: 1. Cholelithiasis with mild gallbladder wall thickening 2. Small right pleural effusion and trace perihepatic and pericholecystic fluid. ACT 112: Negative or not required by law. Electronically signed by: Salvatore Balderas M.D. 03/19/2020 7:35 AM
[2020-03-19] MEDS: INSULIN ASPART 100 UNITS/ML 3 ML PEN SC SCH ×4 (08:36→20:39)
[2020-03-19] MEDS ORDERED: ICU PROTOCOL FOR HYPERGLYCEMIA SCH (09:00)
[2020-03-19 09:58] LABS: iSTAT Arterial Blood Gas pH 6.89 (7.35-7.45)
[2020-03-19 09:59] LABS: iSTAT Arterial Blood Gas HCO3 13 meg/L (19-24); iSTAT Arterial Blood Gas pCO2 71 mmHg (35-46); iSTAT Arterial Blood Gas pO2 85 mmHg (80-95); iSTAT Carbon Dioxide 16 mmol/L (24-31); iSTAT Sample Type Arterial
[2020-03-19 10:16] LABS: Calcium 8.2 mg/dl (8.5-10.1); Creatinine Clr Calc Pharmacy 25.4 ml/min; Est GFR (African American) 17.7; Est GFR (Non-African American) 15.2; Magnesium 2.2 mg/dl (1.8-2.4); Potassium 3.2 mmol/L (3.5-5.1)
[2020-03-19] MEDS ORDERED: SODIUM CHLORIDE 3 % 50 ML IV ONE (10:16)
--- NOTE | 2020-03-19 10:16 | Critical Care Progress Note ---
Date of Service March 19, 2020 Assessment & Plan Admission and Anticipated Discharge Date Admission Date: March 18, 2020 Reason Critically Ill: 54-year-old male here with a PMHx significant for uncontrolled diabetes, CKD, [place] with stent placed 2011, 2016 (ICD placed), and CABG in 2017, and CKD who presented after he became unresponsive with no CPR performed, agonal breathing, CPR was performed in the field as well as intubation and he was given epinephrine x5 and ROSC was achieved. He became bradycardic and who was admitted for close hemodynamic monitoring and therapeutic hypothermia protocol. NEURO - CAM ICU: Unable to assess 2/2 level of consciousness and sedation. Sedation: Propofol Pain: Fentanyl Post Arrest: - Estimated down time 15-20 minutes. - No response to painful stimuli. - On Propofol gtt and Versed PRN pushes. - AM EEG ordered. - CT Head shows loss of porter-white differentiation, early cerebral edema. - Given cerebral edema: placed on hypertonic saline with a bolus of 50 cc and rate of 10 cc/hr to be increased by 10cc/hr based on 2 hr. bmp until he is at goal sodium 145-155 - Q2H BMP - goal pCO2 35-42 - TTM instituted. - Likely poor prognosis. Cardiac - - Cardiac Arrest w/ ROSC - ST elevations inferiorly/laterally post ROSC. - not a candidate for cardiac cath per cardiology - Significant cardiac history. - Repeat EKG shows NSR w/o ST elevations. - on Heparin gtt w/o bolus. - TTM instituted w/ goal temp of 33'C. - Vasopressors as needed. - Echo : EF 40-45%, Inferior Akinesis, right ventricle mild to moderately dilated, IVC mildly dilated - bradycardic with a rate of 46, AICD will pace at 40; this is potentially due to hypothermia vs. herniation RESPIRATORY - - Respiratory failure w/ hypoxia on presentation: - Intubated - CXR w/ left retrocardiac infiltration and pulmonary edema. - adjusting vent settings to achieve goal co2 of 35-42, current RR 18 - CT chest with effusion and patchy nodular infiltrate, on zosyn - ABG consistent with a primary respiratory alkalosis, chronic with secondary metabolic acidosis and additional non gap metabolic acidosis GI/NUTRITION - - Transaminitis: Likely shock liver in the setting of hypoperfusion. - CT a/p: cholelithiasis, trace ascites - U/S liver: cholelithiasis, increased size of CBD to 6mm - Prophylaxis: Protonix RENAL/LYTES - BUBBA: - Prerenal in the CKD patient s/p arrest. baseline around 2 currently 4.13 - mIVF at 50 cc/hr given patient is getting - Currently making urine, poor urine output with 0.32 mL/kg/hr - Potassium elevated initially 5.3 then downtrended likely 2/2 insulin - Replace Lytes as needed. - IVF: NSS @ 50 mL/hr - - Canales in place - Strict I&Os. ENDO - - DM II w/ hyperglycemia, last A1c 15 - currently on insulin gtt. HEME - - Stable H&H - trend while instituting Heparin gtt. ID - - Leukocytosis initially likely be stress induced, will cover w/ empiric antibiotics (Zosyn) while evaluating transaminitis and findings on CT. - follow HR, UOP, BP, WBC LINES/IV ACCESS - PIVs x2 RIGHT Femoral CVL - Cooling Catheter LEFT Radial A-line ET Tube Canales - Temperature Sensing OG DVT PROPHYLAXIS - Heparin gtt SCDs Subjective Patient unable to communicate, intubated. Dr. Campbell discussed case and prognosis with mother who is the POA. Review of Systems Review of Systems: Unobtainable due to endotracheal tube Physical Exam Constitutional: - comatose, lying in bed Eyes: - fixed, dilated - doll's eye negative ENMT: external ear and nose normal, oropharynx normal Neck: normal visual inspection Respiratory: normal respiratory effort, lungs clear to auscultation Cardiovascular: RRR, no murmur, no edema - no edema in right lower extremity Gastrointestinal (Abdomen): - abdomen soft Skin: - cool Neurologic: - unresponsive, with no corneal reflex, fixed dilated pupils Results & Data Results & Data ([facility]) Vital Signs (Past 12 Hours) Vital Signs Temp Temp Pulse Resp BP BP BP 03/19/20 08:00 57 L 03/19/20 07:05 57 L 24 03/19/20 06:45 33.0 C L 53 L 24 149/89 H 164/75 H 03/19/20 05:35 33.0 C L 53 L 24 155/91 H 161/68 H 03/19/20 04:35 33.0 C L 54 L 24 149/87 H 159/68 H 03/19/20 04:01 53 L 24 03/19/20 03:35 33.1 C L 53 L 24 124/78 129/65 03/19/20 02:35 33.1 C L 47 L 24 127/75 125/59 L 03/19/20 01:35 34.6 C L 61 24 118/70 119/54 L 03/19/20 01:03 71 28 H 03/19/20 00:37 36.3 C L 74 24 167/91 H 179/70 H 03/18/20 22:40 67 32 H 03/18/20 21:00 72 31 H 03/18/20 20:53 35.6 C L 74 27 H 158/76 H Pulse Ox 03/19/20 08:00 03/19/20 07:05 98 03/19/20 06:45 97 03/19/20 05:35 97 03/19/20 04:35 97 03/19/20 04:01 96 03/19/20 03:35 95 03/19/20 02:35 98 03/19/20 01:35 99 03/19/20 01:03 99 03/19/20 00:37 98 03/18/20 22:40 99 03/18/20 21:00 100 03/18/20 20:53 100 CBC Results Results Complete Blood Count Results: RBC 3.66 M/uL (4.7-6.1) L 03/19/20 WBC 15.77 K/uL (4.8-10.8) H 03/19/20 Hgb 10.9 g/dL (14.0-18.0) L 03/19/20 Hct 31.6 % (42-52) L 03/19/20 Plt Count 179 K/uL (130-400) 03/19/20 Chemistry (BMP) Results BMP Results: Sodium 136 mmol/L (136-145) 03/19/20 Potassium 3.2 mmol/L (3.5-5.1) L 03/19/20 Chloride 105 mmol/L (98-107) 03/19/20 BUN 59 mg/dl (7-18) H 03/19/20 Creatinine 4.19 mg/dl (0.6-1.4) H 03/19/20 Glucose 225 mg/dl (70-99) H 03/19/20 Resident Activity Tracking Resident Involvement: Resident Care Provided Care Provided: Adult [facility] Medicine
[2020-03-19 10:26] LABS: Troponin I 3.16 ng/ml (0-0.045)
--- NOTE | 2020-03-19 10:28 | XCELERA ---
[id number]
[2020-03-19 10:54] LABS: Phosphorus 3.8 mg/dl (2.5-4.9)
[2020-03-19] MEDS: PANTOprazole 40 MG in SYRINGE 0 ML IV SCH (11:13)
[2020-03-19 11:24] LABS: iSTAT Art Bld Gas pCO2 Correct 28 mmHg (35-46); iSTAT Art Bld Gas pH Corrected 7.404 (7.35-7.45); iSTAT Arterial Blood Gas HCO3 18 meg/L (19-24); iSTAT Arterial Blood Gas pCO2 33 mmHg (35-46); iSTAT Arterial Blood Gas pH 7.35 (7.35-7.45); iSTAT Arterial Blood Gas pO2 90 mmHg (80-95); iSTAT Arterial Blood Gas pO2 C 70; iSTAT Carbon Dioxide 19 mmol/L (24-31); iSTAT FiO2 30 %; iSTAT Hematocrit 30 % (42-52); iSTAT Hemoglobin 10.2 g/dl (14.0-18.0); iSTAT Potassium 3.1 mmol/L (3.3-5.0); iSTAT Site Art Line; iSTAT Sodium 136 mmol/L (135-144)
[2020-03-19] MEDS: SODIUM CHLORIDE 3 % 500 ML IV SCH ×3 (11:28→23:36)
--- NOTE | 2020-03-19 11:37 | Electrocardiogram Report ---
Test Reason : Blood Pressure : / mmHG Vent. 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
--- NOTE | 2020-03-19 11:39 | Electrocardiogram Report ---
Test Reason : Blood Pressure : / mmHG Vent. 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
--- NOTE | 2020-03-19 11:42 | Electrocardiogram Report ---
Test Reason : Blood Pressure : / mmHG Vent. 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
--- NOTE | 2020-03-19 11:51 | Electrocardiogram Report ---
Test Reason : Blood Pressure : / mmHG Vent. 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
[2020-03-19] MEDS: POTASSIUM CHLORIDE / WTR 20 MEQ/100 ML PLCT IV SCH ×2 (12:02→13:56)
--- NOTE | 2020-03-19 12:38 | Billing Data ---
Date of Service March 19, 2020 Coding Level of Care Code Critical Care 1st 30-74 mins Time Spent (min) 75
[2020-03-19 13:22] LABS: BUN Creatinine Ratio 13.9 (10-20); Calcium 8.1 mg/dl (8.5-10.1); Creatinine Clr Calc Pharmacy 24.6 ml/min; Est GFR (Non-African American) 14.7; Magnesium 2.2 mg/dl (1.8-2.4); Potassium 3.2 mmol/L (3.5-5.1)
[2020-03-19 13:31] LABS: Partial Thromboplastin Ratio > 5.0
[2020-03-19 13:34] LABS: Phosphorus 4.7 mg/dl (2.5-4.9)
[2020-03-19 13:40] LABS: Partial Thromboplastin Time > 139.0 Seconds (21.0-31.0)
[2020-03-19] MEDS ORDERED: Nursing to Pharmacy Communication SCH ×5 (14:30→21:45)
[2020-03-19] MEDS ORDERED: PHARMACY GLYCEMIC MGMT CONSULT PRN (14:50)
--- NOTE | 2020-03-19 15:03 | Electrocardiogram Report ---
Test Reason : Blood Pressure : / mmHG Vent. Rate : 040 BPM Atrial Rate : 039 BPM P-R Int : 000 ms QRS Dur : 196 ms QT Int : 570 ms P-R-T Axes : 000 264 083 degrees QTc Int : 464 ms Poor data quality, interpretation may be adversely affected Ventricular-paced rhythm Abnormal ECG When compared with ECG of 03-MAR-2020 13:39, Electronic ventricular pacemaker has replaced Sinus rhythm Vent. rate has decreased BY 34 BPM Confirmed by Jerry Salazar ([id number]) on 03/19/2020 3:02:28 PM Referred By: REFERRED SELF Confirmed By:Jerry Salazar
--- NOTE | 2020-03-19 15:20 | Pharmacy Report ---
Pharmacy Glycemic Short Note 2 - Date of Service March 19, 2020 - Glycemic Short BSG Results (Last 24 hours): 03/18/20 03/18/20 03/18/20 20:12 20:14 22:12 Glucose 260 H 312 H* POC Glucose POC Glucose (other) 239 H 03/18/20 03/19/20 03/19/20 23:44 01:49 01:54 Glucose 361 H* POC Glucose POC Glucose (other) 282 H 364 H* 03/19/20 03/19/20 03/19/20 02:36 03:42 04:07 Glucose 350 H* POC Glucose POC Glucose (other) 382 H* 361 H* 03/19/20 03/19/20 03/19/20 04:46 05:41 06:32 Glucose POC Glucose POC Glucose (other) 330 H 316 H 291 H 03/19/20 03/19/20 03/19/20 07:30 08:34 09:29 Glucose POC Glucose POC Glucose (other) 285 H 261 H 234 H 03/19/20 03/19/20 03/19/20 09:40 10:36 11:34 Glucose 225 H POC Glucose 160 H POC Glucose (other) 194 H 03/19/20 03/19/20 03/19/20 12:34 12:47 13:09 Glucose 109 H POC Glucose POC Glucose (other) 117 H 91 03/19/20 03/19/20 13:34 14:05 Glucose POC Glucose POC Glucose (other) 80 77 OUTPATIENT ANTIDIABETIC REGIMEN: * Basaglar 15 units BID * Novolog 10 units + sliding scale with meals ASSESSMENT: * Patient presenting very hyperglycemic post cardiac arrest, requiring very high insulin infusion rates ( i.e. 20 units/hr), likely do to uncontrolled diabetes and severe stress response * Patient was admitted earlier this month with an A1c of 15% * Insulin infusion has been held since ~ 12pm per protocol due to drop in BSG (last rate ~ 15 units/hr) * BSG was continuously checked q15-30 minutes while downtrending and will be continued until at least significant uptrend noted * Maintenance fluids were changed per MD to D5W NSS @ 50 mL/hr * [place] BSG target per MD < 150 mg/dL * Discussed plan at length with nurse and evening shift pharmacist. Also discussed that this patient is complex and likely will require frequent communication between nurse, pharmacist and provider as necessary. * Can consider re-initiation of the insulin infusion once BSG > 140 mg/dL at a much lower rate (~3 units/hr) to start * Patient is also on a heparin drip (currently on hold) and a 3% saline infusion * Will continue with insulin infusion as needed given hypothermic protocol and unfavorable kinetics with SQ insulin during hypothermia PLAN FOR INPATIENT GLYCEMIC CONTROL: * Basal insulin * IV Insulin infusion (rate to be determined based on BSG trends) * Goal: 110-180 * Bolus insulin * NovoLog per scale ACHS or Q6hrs while NPO * Nutritional / Prandial insulin per IV insulin infusion calculator
[2020-03-19 15:22] LABS: Partial Thromboplastin Ratio 3.5
[2020-03-19 15:23] LABS: iSTAT Art Bld Gas pCO2 Correct 28 mmHg (35-46); iSTAT Art Bld Gas pH Corrected 7.382 (7.35-7.45); iSTAT Arterial Blood Gas HCO3 18 meg/L (19-24); iSTAT Arterial Blood Gas pCO2 34 mmHg (35-46); iSTAT Arterial Blood Gas pH 7.33 (7.35-7.45); iSTAT Arterial Blood Gas pO2 94 mmHg (80-95); iSTAT Arterial Blood Gas pO2 C 73; iSTAT Carbon Dioxide 19 mmol/L (24-31); iSTAT FiO2 30 %; iSTAT Hematocrit 29 % (42-52); iSTAT Hemoglobin 9.9 g/dl (14.0-18.0); iSTAT Potassium 3.8 mmol/L (3.3-5.0); iSTAT Site Art Line; iSTAT Sodium 137 mmol/L (135-144)
[2020-03-19 15:25] LABS: BUN Creatinine Ratio 14.2 (10-20); Calcium 7.7 mg/dl (8.5-10.1); Creatinine Clr Calc Pharmacy 25.5 ml/min; Est GFR (African American) 17.8; Est GFR (Non-African American) 15.3; Potassium 3.9 mmol/L (3.5-5.1)
[2020-03-19 15:31] LABS: Partial Thromboplastin Time 98.6 Seconds (21.0-31.0)
[2020-03-19] MEDS: D5W AND NSS 1,000 ML IV SCH (16:02)
--- NOTE | 2020-03-19 16:05 | Electroencephalogram ---
EEG Procedure Note Date of Service March 19, 2020 Start / End Times Start Time: 5:25am End Time: 5:45am Referring Physician Lore Sharpe History cardiac arrest Home Medication List Home Medications Medication Instructions Recorded Confirmed Type aspirin [Aspirin Low Dose] 81 mg PO DAILY 03/03/20 03/12/20 History atorvastatin 80 mg PO HS 03/03/20 03/12/20 History citalopram 40 mg PO DAILY 03/03/20 03/12/20 History insulin aspart U-100 [Novolog 10 unit SUBCUT UD 03/03/20 03/12/20 History Flexpen U-100 Insulin] isosorbide mononitrate 90 mg PO DAILY 03/03/20 03/12/20 History metoprolol succinate 50 mg PO DAILY 03/03/20 03/12/20 History nitroglycerin [Nitrostat] 0.4 mg SUBLINGUAL UD PRN 03/03/20 03/12/20 History oxycodone 10 mg PO QID PRN 03/03/20 03/12/20 History zolpidem 5 mg PO HS PRN 03/03/20 03/12/20 History amlodipine [Norvasc] 10 mg PO DAILY 30 Days #60 tab 03/06/20 03/12/20 Rx furosemide 40 mg tablet 40 mg PO DAILY PRN #30 tab 03/12/20 03/12/20 Rx gabapentin 600 mg tablet 300 mg PO QID tab 03/12/20 03/12/20 History insulin glargine 100 unit/mL (3 15 unit SUBCUT BID ml 03/12/20 03/12/20 History mL) subcutaneous pen nitroglycerin 0.3 mg sublingual 0.3 mg SUBLINGUAL Q5M PRN #20 tab 03/12/20 03/12/20 Rx tablet Inpatient Medication List Pantoprazole Sodium 40 mg/ (Syringe) 10 mls @ 5 mls/min IV DAILY@1100 [facility] Stop: 04/18/20 10:59 Last Admin: 03/19/20 11:13 Dose: 5 mls/min Documented by: [id number] Propofol (Diprivan) 1,000 mg in 100 mls @ 0 mls/hr IV .Q0M [facility]RICIA; Protocol Stop: 03/21/20 21:44 Last Titration: 03/19/20 11:09 Dose: 0 mcg/kg/min, 0 mls/hr Documented by: [id number] Titration: 03/19/20 07:56 Dose: 20 mcg/kg/min, 12.7 mls/hr Documented by: [id number] Titration: 03/19/20 07:08 Dose: 50 mcg/kg/min, 31.8 mls/hr Documented by: [id number] Cosigned by: [id number] Admin: 03/19/20 05:05 Dose: 50 mcg/kg/min, 31.8 mls/hr Documented by: [id number] Cosigned by: [id number] Titration: 03/19/20 04:57 Dose: 25 mcg/kg/min, 15.9 mls/hr Documented by: [id number] Cosigned by: [id number] Admin: 03/18/20 22:39 Dose: 25 mcg/kg/min, 15.9 mls/hr Documented by: [id number] Cosigned by: [id number] Fentanyl Citrate (Fentanyl Drip) 1,250 mcg in 250 mls @ 0 mls/hr IV .Q0M PRN; Protocol PRN Reason: Pain Stop: 04/01/20 21:41 Last Titration: 03/19/20 11:09 Dose: 0 mcg/hr, 0 mls/hr Documented by: [id number] Cosigned by: [id number] Titration: 03/19/20 07:08 Dose: 100 mcg/hr, 20 mls/hr Documented by: [id number] Cosigned by: [id number] Admin: 03/18/20 22:40 Dose: 25 mcg/hr, 5 mls/hr Documented by: [id number] Cosigned by: [id number] Norepinephrine Bitartrate 8 mg (/ Dextrose) 508 mls @ 30.29 mls/hr IV .[id number] [facility]ICIA; Protocol Stop: 04/17/20 21:59 Last Titration: 03/19/20 15:37 Dose: 0.075 mcg/kg/min, 30.3 mls/hr Documented by: [id number] Titration: 03/19/20 11:38 Dose: 0.05 mcg/kg/min, 20.2 mls/hr Documented by: [id number] Titration: 03/19/20 11:09 Dose: 0 mcg/kg/min, 0 mls/hr Documented by: [id number] Titration: 03/19/20 07:08 Dose: 0.05 mcg/kg/min, 20.2 mls/hr Documented by: [id number] Cosigned by: [id number] Titration: 03/19/20 02:30 Dose: 0.05 mcg/kg/min, 20.2 mls/hr Documented by: [id number] Titration: 03/18/20 22:43 Dose: 0.07 mcg/kg/min, 28.3 mls/hr Documented by: [id number] Admin: 03/18/20 22:39 Dose: 0.05 mcg/kg/min, 20.2 mls/hr Documented by: [id number] Cosigned by: [id number] Insulin Human Regular 250 (units/ Sodium Chloride) 250 mls @ 0 mls/hr IV .Q0M [facility]; Protocol Stop: 04/18/20 00:00 Last Titration: 03/19/20 12:35 Dose: 0 units/hr, 0 mls/hr Documented by: [id number] Cosigned by: [id number] Titration: 03/19/20 11:38 Dose: 15.7 units/hr, 15.7 mls/hr Documented by: [id number] Cosigned by: [id number] Titration: 03/19/20 08:36 Dose: 19.6 units/hr, 19.6 mls/hr Documented by: [id number] Cosigned by: [id number] Titration: 03/19/20 07:50 Dose: 19.6 units/hr, 19.6 mls/hr Documented by: [id number] Cosigned by: [id number] Titration: 03/19/20 07:08 Dose: 16.3 units/hr, 16.3 mls/hr Documented by: [id number] Cosigned by: [id number] Titration: 03/19/20 05:30 Dose: 13.6 units/hr, 13.6 mls/hr Documented by: [id number] Cosigned by: [id number] Titration: 03/19/20 04:30 Dose: 11.3 units/hr, 11.3 mls/hr Documented by: [id number] Cosigned by: [id number] Titration: 03/19/20 03:46 Dose: 9.2 units/hr, 9.2 mls/hr Documented by: [id number] Cosigned by: [id number] Titration: 03/19/20 02:43 Dose: 7.8 units/hr, 7.8 mls/hr Documented by: [id number] Cosigned by: [id number] Admin: 03/19/20 02:07 Dose: 4 units/hr, 4 mls/hr Documented by: [id number] Cosigned by: [id number] Heparin Sodium/Dextrose (Heparin Sodium/Dextrose) 25,000 units in 500 mls @ 18 mls/hr IV .Q24H [facility]; Protocol Stop: 04/18/20 00:44 Last Titration: 03/19/20 15:32 Dose: 900 units/hr, 18 mls/hr Documented by: [id number] Cosigned by: [id number] Titration: 03/19/20 13:55 Dose: 0 units/hr, 0 mls/hr Documented by: [id number] Cosigned by: [id number] Titration: 03/19/20 07:08 Dose: 1,150 units/hr, 23 mls/hr Documented by: [id number] Cosigned by: [id number] Titration: 03/19/20 06:10 Dose: 1,150 units/hr, 23 mls/hr Documented by: [id number] Cosigned by: [id number] Admin: 03/19/20 02:06 Dose: 1,000 units/hr, 20 mls/hr Documented by: [id number] Cosigned by: [id number] Piperacillin Sod/Tazobactam (Sod 4.5 gm/ Dextrose) 120 mls @ 30 mls/hr IV Q8H [facility]; Protocol Stop: 03/26/20 05:59 Last Admin: 03/19/20 14:21 Dose: 30 mls/hr Documented by: [id number] Infusion: 03/19/20 09:44 Dose: 0 mls/hr Documented by: [id number] Admin: 03/19/20 05:06 Dose: 30 mls/hr Documented by: [id number] Sodium Chloride (Hypertonic Saline 3%) 500 mls @ 30 mls/hr IV .[id number] [facility]; Protocol Stop: 04/18/20 11:14 Last Admin: 03/19/20 13:59 Dose: 20 mls/hr Documented by: [id number] Cosigned by: [id number] Admin: 03/19/20 11:28 Dose: 10 mls/hr Documented by: [id number] Cosigned by: [id number] Insulin Aspart (Insulin Aspart 100 Units/Ml 3 Ml Pen) 0 units SC ACHS [facility] Stop: 04/18/20 07:29 Last Admin: 03/19/20 11:13 Dose: Not Given Documented by: [id number] Cosigned by: [id number] Admin: 03/19/20 08:36 Dose: Not Given Documented by: [id number] Cosigned by: [id number] Discontinued Medications Dopamine HCl/Dextrose (Dopamine 400mg / 250ml D5w (Hide Selector Use Only)) Confirm Administered Dose 400 mg .ROUTE .STK-MED ONE Stop: 03/18/20 20:21 Last Admin: 03/19/20 00:57 Dose: Not Given Documented by: [id number] Fentanyl Citrate (Fentanyl Citrate 100 Mcg/2 Ml Vial) Confirm Administered Dose 100 mcg .ROUTE .STK-MED ONE Stop: 03/18/20 20:07 Last Admin: 03/19/20 00:56 Dose: Not Given Documented by: [id number] Heparin Sodium (Porcine) (Heparin (Porcine) 1000 Unit/Ml 10 Ml (Hide Selector Use Only)) Confirm Administered Dose 10,000 units .ROUTE .[employer]MED ONE Stop: 03/18/20 20:06 Last Admin: 03/19/20 00:56 Dose: Not Given Documented by: [id number] Heparin Sodium/Dextrose (Heparin Iv Low Dose *No* Bolus) 1 ea IV ONE ONE; Protocol Stop: 03/19/20 00:38 Last Admin: 03/19/20 02:12 Dose: 1 ea Documented by: [id number] Heparin Sodium/Sodium Chloride (Heparin In Nss Infusion 1000 Unit/500 Ml (2 U/Ml) Bag) Confirm Administered Dose 3,000 units IV .STK-MED ONE Stop: 03/18/20 20:07 Last Admin: 03/19/20 00:56 Dose: Not Given Documented by: [id number] Epinephrine HCl 2 mg/ Dextrose 252 mls @ 80.136 mls/hr IV .Q3H9M [facility]; Protocol Stop: 03/18/20 22:00 Last Titration: 03/18/20 23:09 Dose: 0.1 mcg/kg/min, 80.1 mls/hr Documented by: [id number] Admin: 03/18/20 20:00 Dose: 0.1 mcg/kg/min, 80.1 mls/hr Documented by: [id number] Cosigned by: [id number] Epinephrine HCl 4 mg/ Dextrose 254 mls @ 40.386 mls/hr IV .Q6H18M [facility]; Protocol Stop: 04/17/20 20:29 Last Admin: 03/19/20 11:29 Dose: Not Given Documented by: [id number] Admin: 03/19/20 03:01 Dose: Not Given Documented by: [id number] Admin: 03/19/20 00:57 Dose: Not Given Documented by: [id number] Sodium Chloride (Nss 1000ml) 1,000 mls @ 50 mls/hr IV .Q20H [facility] Stop: 04/17/20 21:44 Last Infusion: 03/19/20 12:35 Dose: 0 mls/hr Documented by: [id number] Admin: 03/19/20 05:06 Dose: 125 mls/hr Documented by: [id number] Infusion: 03/19/20 05:06 Dose: 125 mls/hr Documented by: [id number] Admin: 03/18/20 22:41 Dose: 125 mls/hr Documented by: [id number] Piperacillin Sod/Tazobactam (Sod 4.5 gm/ Dextrose) 120 mls @ 240 mls/hr IV ONE ONE; Protocol Stop: 03/19/20 01:29 Last Infusion: 03/19/20 02:36 Dose: 240 mls/hr Documented by: [id number] Admin: 03/19/20 02:06 Dose: 240 mls/hr Documented by: [id number] Albumin Human (Albumin 25%) 50 mls @ 50 mls/hr IV ONE ONE Stop: 03/19/20 03:59 Last Infusion: 03/19/20 04:02 Dose: 50 mls/hr Documented by: [id number] Admin: 03/19/20 03:02 Dose: 50 mls/hr Documented by: [id number] Sodium Chloride (Nss 1000ml) 250 mls @ 999 mls/hr IV .Q16M ONE Stop: 03/19/20 03:03 Last Infusion: 03/19/20 03:20 Dose: 999 mls/hr Documented by: [id number] Admin: 03/19/20 03:04 Dose: 999 mls/hr Documented by: [id number] Calcium Chloride 1,000 mg/ (Sodium Chloride) 60 mls @ 240 mls/hr IV NOW STA Stop: 03/19/20 03:02 Last Infusion: 03/19/20 03:17 Dose: 240 mls/hr Documented by: [id number] Admin: 03/19/20 03:02 Dose: 240 mls/hr Documented by: [id number] Heparin Sodium (Porcine) 4,500 (units/ Syringe) 4.5 mls @ 10 mls/min IV ONE ONE Stop: 03/19/20 06:16 Last Admin: 03/19/20 07:06 Dose: 10 mls/min Documented by: [id number] Cosigned by: [id number] Sodium Chloride (Hypertonic Saline 3%) 50 mls @ 300 mls/hr IV .Q10M ONE Stop: 03/19/20 10:25 Last Infusion: 03/19/20 11:29 Dose: 0 mls/hr Documented by: [id number] Cosigned by: [id number] Admin: 03/19/20 11:08 Dose: 300 mls/hr Documented by: [id number] Cosigned by: [id number] Potassium Chloride (K Ananda / Wtr) 20 meq in 100 mls @ 50 mls/hr IV Q2H [facility] Stop: 03/19/20 15:59 Last Infusion: 03/19/20 15:59 Dose: 0 mls/hr Documented by: [id number] Admin: 03/19/20 13:56 Dose: 50 mls/hr Documented by: [id number] Infusion: 03/19/20 12:35 Dose: 0 mls/hr Documented by: [id number] Admin: 03/19/20 12:02 Dose: 50 mls/hr Documented by: [id number] Insulin Human Regular (Novolin-R Bolus From Bag) 4 units IV ONE ONE Stop: 03/19/20 00:01 Last Admin: 03/19/20 02:08 Dose: 4 units Documented by: [id number] Cosigned by: [id number] Midazolam HCl (Midazolam Hcl 1 Mg/Ml 2ml Vial) Confirm Administered Dose 2 mg .ROUTE .STK-MED ONE Stop: 03/18/20 20:07 Last Admin: 03/19/20 00:57 Dose: Not Given Documented by: [id number] Nicardipine HCl (Nicardipine Hcl Inj 2.5 Mg/Ml 10 Ml Amp) Confirm Administered Dose 25 mg .ROUTE .STK-MED ONE Stop: 03/18/20 20:06 Last Admin: 03/19/20 00:55 Dose: Not Given Documented by: [id number] Nitroglycerin/Dextrose (Nitroglycerin/D5w 100mcg/Ml 20ml Syr) Confirm Administered Dose 2,000 mcg .ROUTE .STK-MED ONE Stop: 03/18/20 20:07 Last Admin: 03/19/20 00:56 Dose: Not Given Documented by: [id number] Norepinephrine Bitartrate (Norepinephrine Bitartrate 1 Mg/Ml 4 Ml Vial (Hide Selector Use Only)) Confirm Administered Dose 4 mg .ROUTE .STK-MED ONE Stop: 03/18/20 20:21 Last Admin: 03/19/20 00:57 Dose: Not Given Documented by: [id number] Sodium Bicarbonate (Sodium Bicarb 8.4% Inj 50 Meq/50 Ml Syr) Confirm Administered Dose 100 meq IV .STK-MED ONE Stop: 03/18/20 20:31 Last Admin: 03/19/20 00:57 Dose: Not Given Documented by: [id number] Sodium Bicarbonate (Sodium Bicarb 8.4% Inj 50 Meq/50 Ml Syr) 100 meq IV NOW STA Stop: 03/19/20 02:49 Last Admin: 03/19/20 03:02 Dose: 100 meq Documented by: [id number] Description This is a 21 electrode EEG with a single channel dedicated to limited EKG. The electrodes were placed in accordance with the International 10-20 system. History: cardiac arrest with prolonged time down to ROSC Rx: propofol gtt prn Start/Stop: 5:25am/5:45am Attending reading: Lyndsey Nair EEG Description: EEG background: There was no observable background rhythm despite lowering the voltage sensitivity to 2 uV. No well formed posterior dominant rhythm was observed. The EEG is continuous. There is no clear variability or reactivity present. Activation and reactivity: Photic stimulation performed without any abnormalities noted. No photic driving observed. Hyperventilation was not performed. Sleep: No sleep architecture noted. Epileptiform discharges: No epileptiform discharges were observed. Rhythmic and periodic patterns: EKG artifact was noted. No other rhythmic or periodic discharges noted. Seizures: None Impression: This was an abnormal EEG as there was no clear background rhythm, PDR, variability or reactivity. No seizures or epileptiform discharges were seen. Given his history of cardiac arrest, this EEG suggests a very poor prognosis neurologically (not completed with the brain protocols so cannot ascertain brain with EEG only). [facility] EEG Procedure Codes Indication for Procedure (1) Cardiac arrest: (2) Respiratory failure: Neurology Neurology: [id number] EEG include record awake & drowsy
[2020-03-19 17:38] LABS: BUN Creatinine Ratio 13.7 (10-20); Calcium 7.9 mg/dl (8.5-10.1); Creatinine Clr Calc Pharmacy 24.8 ml/min; Est GFR (African American) 17.2; Est GFR (Non-African American) 14.8; Potassium 3.7 mmol/L (3.5-5.1)
[2020-03-19 17:46] LABS: Phosphorus 5.5 mg/dl (2.5-4.9)
[2020-03-19 19:16] LABS: iSTAT Art Bld Gas pCO2 Correct 31 mmHg (35-46); iSTAT Art Bld Gas pH Corrected 7.341 (7.35-7.45); iSTAT Arterial Blood Gas HCO3 18 meg/L (19-24); iSTAT Arterial Blood Gas pCO2 37 mmHg (35-46); iSTAT Arterial Blood Gas pH 7.29 (7.35-7.45); iSTAT Arterial Blood Gas pO2 94 mmHg (80-95); iSTAT Arterial Blood Gas pO2 C 73; iSTAT Carbon Dioxide 19 mmol/L (24-31); iSTAT FiO2 30 %; iSTAT Hematocrit 30 % (42-52); iSTAT Hemoglobin 10.2 g/dl (14.0-18.0); iSTAT Potassium 3.6 mmol/L (3.3-5.0); iSTAT Site Art Line; iSTAT Sodium 137 mmol/L (135-144)
[2020-03-19 19:43] LABS: Appearance Urine Cloudy (Clear); Bacteria Urine Automated Negative (Negative); Bilirubin Urine Negative (Negative); Blood Urine 3+ (Negative); Color Urine Yellow; Epithelial Cell Urine Auto >30 /lpf (0-5); Glucose Urine UA 2+ (Negative); Ketones Urine Negative (Negative); Leukocyte Esterase Urine Negative (Negative); Nitrite Urine Negative (Negative); Protein Urine 3+ (Negative); Specific Gravity Urine 1.015 (1.000-1.030); Urobilinogen Urine Negative (Negative)
[2020-03-19 19:56] LABS: BUN Creatinine Ratio 14.3 (10-20); Calcium 7.5 mg/dl (8.5-10.1); Creatinine Clr Calc Pharmacy 24.6 ml/min; Est GFR (Non-African American) 14.7; Potassium 3.6 mmol/L (3.5-5.1)
[2020-03-19 20:09] LABS: Cast Urine Automated >30 /lpf (0-5)
[2020-03-19] MEDS: NOREPINEPHRINE BIT INJ 8 MG in DEXTROSE 5% 500 ML IV SCH (20:12)
[2020-03-19 21:34] LABS: BUN Creatinine Ratio 13.7 (10-20); Calcium 7.5 mg/dl (8.5-10.1); Creatinine Clr Calc Pharmacy 24.2 ml/min; Est GFR (African American) 16.7; Est GFR (Non-African American) 14.4; Potassium 3.5 mmol/L (3.5-5.1)
[2020-03-19 21:38] LABS: Partial Thromboplastin Ratio 2.6
[2020-03-19 21:42] LABS: Partial Thromboplastin Time 71.2 Seconds (21.0-31.0)
[2020-03-19 22:52] LABS: iSTAT Art Bld Gas pCO2 Correct 31 mmHg (35-46); iSTAT Art Bld Gas pH Corrected 7.338 (7.35-7.45); iSTAT Arterial Blood Gas HCO3 17 meg/L (19-24); iSTAT Arterial Blood Gas pCO2 37 mmHg (35-46); iSTAT Arterial Blood Gas pH 7.28 (7.35-7.45); iSTAT Arterial Blood Gas pO2 99 mmHg (80-95); iSTAT Arterial Blood Gas pO2 C 77; iSTAT Carbon Dioxide 18 mmol/L (24-31); iSTAT FiO2 30 %; iSTAT Hematocrit 31 % (42-52); iSTAT Hemoglobin 10.5 g/dl (14.0-18.0); iSTAT Potassium 3.6 mmol/L (3.3-5.0); iSTAT Site Art Line; iSTAT Sodium 138 mmol/L (135-144)
[2020-03-19 23:13] LABS: BUN Creatinine Ratio 13.7 (10-20); Calcium 7.3 mg/dl (8.5-10.1); Creatinine Clr Calc Pharmacy 23.9 ml/min; Est GFR (African American) 16.5; Est GFR (Non-African American) 14.2; Potassium 3.6 mmol/L (3.5-5.1)
[2020-03-20] MEDS: INSULIN REGULAR 250 UNITS in SODIUM CHLORIDE 0.9% 247.5 ML IV SCH (00:23)
[2020-03-20 00:37] LABS: BUN Creatinine Ratio 13.7 (10-20); Calcium 7.1 mg/dl (8.5-10.1); Creatinine Clr Calc Pharmacy 24.1 ml/min; Est GFR (African American) 16.6; Est GFR (Non-African American) 14.3; Potassium 3.6 mmol/L (3.5-5.1)
[2020-03-20] MEDS ORDERED: Nursing to Pharmacy Communication SCH ×3 (00:45→05:30)
[2020-03-20 03:29] LABS: Creatinine Clr Calc Pharmacy 24.4 ml/min; Est GFR (African American) 16.9; Est GFR (Non-African American) 14.6; Potassium 3.6 mmol/L (3.5-5.1)
[2020-03-20 04:44] LABS: Basophils # (auto) 0.02 K/uL (0-0.2); Basophils % (auto) 0.2 %; Eosinophils # (auto) 1.13 K/uL (0-0.5); Eosinophils % (auto) 10.3 %; Hematocrit (blood only) 30.5 % (42-52); Hemoglobin 10.7 g/dL (14.0-18.0); Immature Granulocytes # (auto) 0.02 K/uL (0.00-0.02); Immature Granulocytes % (auto) 0.2 %; Lymphocytes # (auto) 1.98 K/uL (1.2-3.4); Mean Corpuscular Hemoglobin 29.3 pg (25-34); Mean Corpuscular Hgb Conc 35.1 g/dL (32-36); Mean Corpuscular Volume 83.6 fL (80-100); Mean Platelet Volume 11.1 fL (7.4-10.4); Monocytes # (auto) 0.86 K/uL (0.11-0.59); Monocytes % (auto) 7.8 %; Neutrophils # (auto) 6.98 K/uL (1.4-6.5); Neutrophils % (auto) 63.5 %; Platelet Count 167 K/uL (130-400); RDW Coefficient of Variation 13.7 % (11.5-14.5); RDW Standard Deviation 41.5 fL (36.4-46.3); Red Blood Count 3.65 M/uL (4.7-6.1); White Blood Count 10.99 K/uL (4.8-10.8)
[2020-03-20] MEDS: PIPERACILLIN/TAZOBACTAM 4.5 GM in DEXTROSE 5% 100 ML IV SCH ×2 (05:04→13:10)
[2020-03-20] MEDS: HEPARIN SODIUM/DEXTROSE 25,000 UNITS/500 ML BAG IV SCH ×2 (05:04→18:13)
[2020-03-20 05:06] LABS: Alanine Aminotransferase 241 U/L (12-78); Albumin Level 1.9 gm/dl (3.4-5.0); Aspartate Aminotransferase 176 U/L (15-37); BUN Creatinine Ratio 13.8 (10-20); Blood Urea Nitrogen 61 mg/dl (7-18); Calcium 7.1 mg/dl (8.5-10.1); Carbon Dioxide 18 mmol/L (21-32); Chloride 114 mmol/L (98-107); Creatinine Clr Calc Pharmacy 24.1 ml/min; Est GFR (African American) 16.6; Est GFR (Non-African American) 14.3; Glucose 111 mg/dl (70-99); INR 1.1 (0.9-1.1); Magnesium 1.9 mg/dl (1.8-2.4); Partial Thromboplastin Ratio 1.9; Potassium 3.6 mmol/L (3.5-5.1); Sodium 142 mmol/L (136-145)
[2020-03-20 05:09] LABS: Alkaline Phosphatase 146 U/L (45-117); Bilirubin,Total 0.2 mg/dl (0.2-1); Phosphorus 5.1 mg/dl (2.5-4.9); Total Protein 5.1 gm/dl (6.4-8.2)
[2020-03-20 05:10] LABS: Partial Thromboplastin Time 53.4 Seconds (21.0-31.0)
[2020-03-20 05:33] LABS: iSTAT Art Bld Gas pCO2 Correct 30 mmHg (35-46); iSTAT Art Bld Gas pH Corrected 7.326 (7.35-7.45); iSTAT Arterial Blood Gas HCO3 17 meg/L (19-24); iSTAT Arterial Blood Gas pCO2 36 mmHg (35-46); iSTAT Arterial Blood Gas pH 7.27 (7.35-7.45); iSTAT Arterial Blood Gas pO2 84 mmHg (80-95); iSTAT Arterial Blood Gas pO2 C 66; iSTAT Carbon Dioxide 18 mmol/L (24-31); iSTAT FiO2 30 %; iSTAT Hematocrit 29 % (42-52); iSTAT Hemoglobin 9.9 g/dl (14.0-18.0); iSTAT Potassium 3.6 mmol/L (3.3-5.0); iSTAT Site Art Line; iSTAT Sodium 141 mmol/L (135-144)
--- NOTE | 2020-03-20 06:29 | Hospitalist Progress Note ---
Date of Service March 19, 2020 Assessment & Plan (1) Cardiac arrest: review of ICU interrogation fails to show V-tach or any device discharge. likely PEA cardiac arrest of uncertain etiology. Although he ultimately had advent of circulation his exam along with CT head findings are highly concerning for anoxic brain injury. he remains under the hypothermia protocol - defer management to ICU attending. remains on zosyn for suspected aspiration pneumonia. cont vent support. BUBBA and acute liver injury likely due to ATN and shock liver, respectively, in setting of his arrest. his prognosis is very, very poor which Dr Campbell discussed extensively with mother about. no plans for heart cath at this time. appreciate all support and management by ICU attending and staff. will continue to follow. finish 48-hours of heparin drip protocol. (2) BUBBA (acute kidney injury): (3) Anoxic brain injury: (4) Acute respiratory failure with hypoxia: (5) Shock liver: (6) Aspiration pneumonia: (7) CKD (chronic kidney disease): (8) CAD (coronary artery disease): (9) Diabetes mellitus: (10) Ischemic cardiomyopathy: (11) HTN (hypertension): (12) ICD (implantable cardioverter-defibrillator), single, in situ: (13) Elevated troponin: not felt to represent acute coronary syndrome rather, myocardial demand ischemia in setting of cardiac arrest of uncertain etiology (14) DVT prophylaxis: heparin drip Admission and Anticipated Discharge Date Admission Date: March 18, 2020 Subjective events of last 24 hours noted patient's pupils are fixed/dilated on exam today Dr Campbell spoke with pt's mother, told her our concerns of severe anoxic brain injury given CT findings & exam findings, patient made DNR mother wanted hypothermia protocol continued Review of Systems Review of Systems: Unobtainable due to endotracheal tube and Unobtainable due to reduced consciousness Physical Exam Constitutional: + obese and + altered mental status; no acute distress Eyes: + fixed pupils (Dilated b/l symmetrically ) ENMT: ETT/enteric tube present Respiratory: no respiratory distress Auscultation: + diminished lung sounds Cardiovascular: Rate/Rhythm: regular rhythm and + bradycardic Heart Sounds: normal S1 and normal S2; no murmur Vessels: posterior tibial pulses present and dorsalis pedis pulses present; no JVD Extremities: no edema Gastrointestinal (Abdomen): normal bowel sounds, soft, nontender, no hepatosplenomegaly Inspection/Auscultation: + abdomen distended Neurologic: no spontaneous movements of any limb Results & Data Results & Data ([facility]) Vital Signs (Past 12 Hours) Vital Signs Temp Temp Pulse Resp BP BP BP 03/20/20 06:11 33.5 C L 47 L 113/74 03/20/20 06:10 33.5 C L 47 L 03/20/20 06:00 33.5 C L 45 L 03/20/20 05:56 33.3 C L 47 L 120/79 03/20/20 05:50 33.3 C L 46 L 03/20/20 05:41 33.2 C L 46 L 115/72 03/20/20 05:40 33.2 C L 46 L 03/20/20 05:30 33.2 C L 46 L 03/20/20 05:26 33.1 C L 46 L 121/74 03/20/20 05:20 33.1 C L 46 L 03/20/20 05:18 45 L 16 03/20/20 05:11 33.1 C L 45 L 130/78 03/20/20 05:10 33.1 C L 45 L 03/20/20 05:00 33.0 C L 45 L 03/20/20 04:57 33.0 C L 44 L 03/20/20 04:56 33.0 C L 45 L 122/77 03/20/20 04:50 33.0 C L 44 L 03/20/20 04:45 33 C L 45 L 16 130/66 03/20/20 04:41 33.0 C L 43 L 121/76 03/20/20 04:40 33.0 C L 43 L 03/20/20 04:30 33.0 C L 44 L 03/20/20 04:26 33.0 C L 44 L 125/75 03/20/20 04:20 33.0 C L 44 L 03/20/20 04:11 33.0 C L 44 L 121/76 03/20/20 04:10 33.0 C L 44 L 03/20/20 04:00 32.9 C L 43 L 03/20/20 03:56 32.9 C L 43 L 111/73 03/20/20 03:50 33.0 C L 42 L 03/20/20 03:41 33.0 C L 43 L 121/76 03/20/20 03:40 33.0 C L 43 L 03/20/20 03:30 33.0 C L 44 L 03/20/20 03:26 33.0 C L 44 L 124/78 03/20/20 03:15 33.0 C L 44 L 03/20/20 03:11 33.0 C L 44 L 120/75 03/20/20 03:00 32.9 C L 45 L 03/20/20 02:56 32.9 C L 45 L 121/76 03/20/20 02:45 32.9 C L 44 L 03/20/20 02:41 32.9 C L 44 L 126/78 03/20/20 02:30 33.0 C L 42 L 03/20/20 02:26 33.0 C L 42 L 125/75 03/20/20 02:15 33.1 C L 42 L 03/20/20 02:11 33.1 C L 42 L 119/75 03/20/20 02:00 33.0 C L 44 L 03/20/20 01:58 44 L 16 03/20/20 01:56 33.0 C L 44 L 114/75 03/20/20 01:45 32.9 C L 44 L 03/20/20 01:41 32.8 C L 44 L 123/76 03/20/20 01:30 32.9 C L 44 L 03/20/20 01:26 33.0 C L 43 L 114/82 03/20/20 01:15 33.0 C L 44 L 03/20/20 01:11 33.0 C L 44 L 129/78 03/20/20 01:00 33.0 C L 44 L 03/20/20 00:56 33.0 C L 44 L 127/76 03/20/20 00:45 33.0 C L 44 L 03/20/20 00:41 33.0 C L 44 L 126/80 03/20/20 00:30 33.0 C L 44 L 03/20/20 00:25 33.0 C L 44 L 131/77 03/20/20 00:20 33.0 C L 43 L 03/20/20 00:11 33.0 C L 42 L 105/69 03/20/20 00:10 33.0 C L 42 L 03/20/20 00:00 33.0 C L 44 L 03/19/20 23:55 33.0 C L 44 L 133/82 03/19/20 23:50 33.0 C L 45 L 03/19/20 23:40 33.0 C L 45 L 130/81 03/19/20 23:30 33.0 C L 45 L 03/19/20 23:25 33.0 C L 45 L 137/81 03/19/20 23:20 33.0 C L 44 L 03/19/20 23:10 33.0 C L 45 L 135/84 03/19/20 23:00 33.0 C L 45 L 03/19/20 22:55 33.0 C L 45 L 146/83 H 03/19/20 22:50 33.0 C L 45 L 03/19/20 22:45 33.0 C L 45 L 03/19/20 22:40 45 L 16 03/19/20 22:30 33.0 C L 44 L 03/19/20 22:25 33.0 C L 45 L 143/84 H 03/19/20 22:15 33.0 C L 45 L 03/19/20 22:11 33.0 C L 46 L 142/83 H 03/19/20 22:00 33.0 C L 46 L 03/19/20 21:56 33.0 C L 45 L 146/82 H 03/19/20 21:45 33.0 C L 45 L 03/19/20 21:42 48 L 03/19/20 21:40 33.0 C L 45 L 139/83 03/19/20 21:30 33.0 C L 45 L 03/19/20 21:26 33.0 C L 45 L 144/80 H 03/19/20 21:20 33.0 C L 45 L 03/19/20 21:11 33.0 C L 46 L 03/19/20 21:10 33.0 C L 46 L 138/86 03/19/20 21:00 32.9 C L 46 L 03/19/20 20:55 33.0 C L 46 L 142/85 H 03/19/20 20:50 33.0 C L 46 L 03/19/20 20:41 33.0 C L 46 L 03/19/20 20:40 33.0 C L 46 L 143/86 H 03/19/20 20:30 33.0 C L 47 L 03/19/20 20:25 33.0 C L 46 L 140/88 03/19/20 20:20 33.0 C L 46 L 03/19/20 20:10 33.0 C L 46 L 140/84 03/19/20 20:00 33.0 C L 48 L 03/19/20 19:50 33.0 C L 47 L 03/19/20 19:41 33.0 C L 46 L 03/19/20 19:40 33.0 C L 46 L 139/84 03/19/20 19:30 33.0 C L 46 L 03/19/20 19:25 33.0 C L 47 L 16 132/85 03/19/20 19:20 33.0 C L 47 L 03/19/20 19:11 33.0 C L 47 L 03/19/20 19:10 33.0 C L 47 L 135/85 03/19/20 19:00 33.0 C L 47 L 03/19/20 18:55 33.0 C L 47 L 133/82 03/19/20 18:50 33.0 C L 47 L 03/19/20 18:45 33.0 C L 47 L 03/19/20 18:35 33.0 C L 46 L 16 123/59 L 128/83 Pulse Ox 03/20/20 06:11 97 03/20/20 06:10 97 03/20/20 06:00 96 03/20/20 05:56 97 03/20/20 05:50 97 03/20/20 05:41 97 03/20/20 05:40 97 03/20/20 05:30 97 03/20/20 05:26 97 03/20/20 05:20 97 03/20/20 05:18 97 03/20/20 05:11 97 03/20/20 05:10 97 03/20/20 05:00 98 03/20/20 04:57 98 03/20/20 04:56 98 03/20/20 04:50 98 03/20/20 04:45 03/20/20 04:41 98 03/20/20 04:40 98 03/20/20 04:30 97 03/20/20 04:26 97 03/20/20 04:20 97 03/20/20 04:11 98 03/20/20 04:10 98 03/20/20 04:00 98 03/20/20 03:56 98 03/20/20 03:50 97 03/20/20 03:41 99 03/20/20 03:40 03/20/20 03:30 98 03/20/20 03:26 98 03/20/20 03:15 98 03/20/20 03:11 98 03/20/20 03:00 98 03/20/20 02:56 98 03/20/20 02:45 98 03/20/20 02:41 98 03/20/20 02:30 98 03/20/20 02:26 98 03/20/20 02:15 98 03/20/20 02:11 98 03/20/20 02:00 97 03/20/20 01:58 98 03/20/20 01:56 98 03/20/20 01:45 98 03/20/20 01:41 98 03/20/20 01:30 98 03/20/20 01:26 97 03/20/20 01:15 98 03/20/20 01:11 98 03/20/20 01:00 98 03/20/20 00:56 98 03/20/20 00:45 97 03/20/20 00:41 98 03/20/20 00:30 98 03/20/20 00:25 99 03/20/20 00:20 99 03/20/20 00:11 99 03/20/20 00:10 03/20/20 00:00 98 03/19/20 23:55 98 03/19/20 23:50 98 03/19/20 23:40 98 03/19/20 23:30 99 03/19/20 23:25 99 03/19/20 23:20 99 03/19/20 23:10 99 03/19/20 23:00 99 03/19/20 22:55 99 03/19/20 22:50 99 03/19/20 22:45 99 03/19/20 22:40 99 03/19/20 22:30 99 08/26/20 22:25 99 03/19/20 22:15 97 03/19/20 22:11 99 03/19/20 22:00 99 03/19/20 21:56 100 03/19/20 21:45 99 03/19/20 21:42 03/19/20 21:40 99 03/19/20 21:30 99 03/19/20 21:26 99 03/19/20 21:20 99 03/19/20 21:11 99 03/19/20 21:10 99 03/19/20 21:00 98 03/19/20 20:55 98 03/19/20 20:50 98 03/19/20 20:41 98 03/19/20 20:40 98 03/19/20 20:30 98 03/19/20 20:25 98 03/19/20 20:20 98 03/19/20 20:10 98 03/19/20 20:00 98 03/19/20 19:50 98 03/19/20 19:41 98 03/19/20 19:40 03/19/20 19:30 98 03/19/20 19:25 98 03/19/20 19:20 98 03/19/20 19:11 98 03/19/20 19:10 98 03/19/20 19:00 98 03/19/20 18:55 99 03/19/20 18:50 98 03/19/20 18:45 98 03/19/20 18:35 99 echo - EF 40-45%; inferior wall hypokinesis labs reviewed Cr 4.1 lfts elevated PG Care Time/CCT Total # of Minutes Spent Total Time Spent with Patient: Total time spent is greater than 50% in coordination of care (as documented) at patient's floor/unit and/or counseling patient: Coding Level of Care Code 61014 Subseq Hosp Care Lvl 1 Diagnoses Cardiac arrest I46.9 BUBBA (acute kidney injury) N17.9 Anoxic brain injury G93.1 Acute respiratory failure with hypoxia J96.01 Shock liver K72.00 Aspiration pneumonia J69.0 CKD (chronic kidney disease) N18.9 CAD (coronary artery disease) I25.10 Diabetes mellitus E11.9 Ischemic cardiomyopathy I25.5 HTN (hypertension) I10 ICD (implantable cardioverter-defibrillator), single, in situ Z95.810 Elevated troponin R79.89 DVT prophylaxis Z29.9
[2020-03-20 06:41] LABS: Bilirubin Direct < 0.1 mg/dl (0-0.2)
[2020-03-20 07:20] LABS: BUN Creatinine Ratio 13.7 (10-20); Calcium 6.9 mg/dl (8.5-10.1); Creatinine Clr Calc Pharmacy 24.5 ml/min; Est GFR (African American) 16.5; Est GFR (Non-African American) 14.2; Potassium 3.8 mmol/L (3.5-5.1)
--- NOTE | 2020-03-20 07:27 | XRay Report ---
XR chest 1V portable CLINICAL HISTORY: Respiratory failure. Follow-up study. COMPARISON STUDY: A 2619 FINDINGS: There are postsurgical changes of a midline sternotomy. There is a left subclavian pacer/de fibrillator present. There is a nasogastric tube which passes into the stomach. There is an endotrach eal tube positioned 6.57 m above the willian.[The heart remains enlarged. There is continued radiograp hic evidence of congestive failure with increasing pleural effusions and associated basilar opacities . IMPRESSION: Congestive failure with increasing pleural effusions and associated basilar airspace opac ities ACT 112: Negative or not required by law. Electronically signed by: Salvatore Balderas M.D. 03/20/2020 7:26 AM
[2020-03-20] MEDS: NOREPINEPHRINE BIT INJ 8 MG in DEXTROSE 5% 500 ML IV SCH ×3 (07:33→15:28)
--- NOTE | 2020-03-20 07:57 | Electrocardiogram Report ---
Test Reason : Blood Pressure : / mmHG Vent. 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
--- NOTE | 2020-03-20 07:59 | Electrocardiogram Report ---
Test Reason : Blood Pressure : / mmHG Vent. 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
[2020-03-20] MEDS: INSULIN ASPART 100 UNITS/ML 3 ML PEN SC SCH ×3 (08:07→14:59)
[2020-03-20] MEDS ORDERED: SODIUM BICARB 8.4% INJ 50 MEQ/50 ML SYR IV ONE ×2 (08:30→14:15)
[2020-03-20] MEDS: D5W AND NSS 1,000 ML IV SCH (08:34)
--- NOTE | 2020-03-20 08:39 | Electrocardiogram Report ---
Test Reason : Blood Pressure : / mmHG Vent. 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
--- NOTE | 2020-03-20 08:49 | Electrocardiogram Report ---
Test Reason : Blood Pressure : / mmHG Vent. 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
--- NOTE | 2020-03-20 08:52 | Electrocardiogram Report ---
Test Reason : Blood Pressure : / mmHG Vent. 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
[2020-03-20 09:11] LABS: BUN Creatinine Ratio 13.2 (10-20); Calcium 7.1 mg/dl (8.5-10.1); Est GFR (African American) 16.1; Est GFR (Non-African American) 13.9; Potassium 3.9 mmol/L (3.5-5.1)
[2020-03-20 09:24] LABS: iSTAT Art Bld Gas pCO2 Correct 33 mmHg (35-46); iSTAT Art Bld Gas pH Corrected 7.289 (7.35-7.45); iSTAT Arterial Blood Gas HCO3 16 meg/L (19-24); iSTAT Arterial Blood Gas pCO2 37 mmHg (35-46); iSTAT Arterial Blood Gas pH 7.25 (7.35-7.45); iSTAT Arterial Blood Gas pO2 80 mmHg (80-95); iSTAT Arterial Blood Gas pO2 C 67; iSTAT Carbon Dioxide 17 mmol/L (24-31); iSTAT FiO2 30 %; iSTAT Hematocrit 28 % (42-52); iSTAT Hemoglobin 9.5 g/dl (14.0-18.0); iSTAT Potassium 3.8 mmol/L (3.3-5.0); iSTAT Site Art Line; iSTAT Sodium 144 mmol/L (135-144)
--- NOTE | 2020-03-20 10:37 | Intensivist Progress Note ---
Date of Service March 20, 2020 Assessment & Plan Admission and Anticipated Discharge Date Admission Date: March 18, 2020 Reason Critically Ill: 54-year-old male here with a PMHx significant for uncontrolled diabetes, CKD, IA with stent placed 2011, 2016 (ICD placed), and CABG in 2017, and CKD who presented after he became unresponsive with no CPR performed initially, agonal breathing, PEA was seen and CPR was performed in the field as well as intubation and epinephrine x5 and ROSC was achieved. He became bradycardic and was admitted for close hemodynamic monitoring and therapeutic hypothermia protocol. NEURO - CAM ICU: Unable to assess 2/2 level of consciousness and sedation. Sedation: off since noon 03/19 Post Arrest with findings consistent with hypoxic brain injury - prolonged down time without CPR initially - AM EEG consistent with a very poor prognosis - CT Head shows loss of porter-white differentiation, early cerebral edema. - Given cerebral edema: placed on hypertonic saline 3% with goal sodium 145-155 - currently 3% saline is running at 100 cc/hr, and will adjust this rate based on Na - initiated 2g TID oral salt tabs - Q4H BMP - goal pCO2 35-42 - rewarming should be complete by 16:00-17:00 - Likely poor prognosis. Cardiac - - Cardiac arrest w/ ROSC - ST elevations inferiorly/laterally post ROSC - Repeat EKG shows NSR w/o ST elevations. - troponin had down-trended - Significant cardiac history. - on Heparin gtt w/o bolus. - TTM instituted currently rewarming - Vasopressors as needed. - Echo : EF 40-45%, Inferior Akinesis, right ventricle mild to moderately dilated, IVC mildly dilated - bradycardic with a rate of 46, AICD will pace at 40; this is potentially due to hypothermia vs. herniation RESPIRATORY - - Respiratory failure with hypoxia on presentation: - Intubated - CXR w/ left retrocardiac infiltration and pulmonary edema. - adjusting vent settings to achieve goal co2 of 35-42, current RR 18 - CT chest with effusion and patchy nodular infiltrate, on Zosyn GI/NUTRITION - - Transaminitis: Likely shock liver in the setting of hypoperfusion. - CT a/p: cholelithiasis, trace ascites - U/S liver: cholelithiasis, increased size of CBD to 6mm - Prophylaxis: Protonix - initiating tube feeds RENAL/LYTES - BUBBA: - Prerenal in the CKD patient s/p arrest. baseline around 2 currently 4.58 - Currently making urine, poor urine output with 0.23 mL/kg/hr - Replace Lytes as needed. - IVF: 3% at 100 cc/hr - - Canales in place - Strict I&Os. ENDO - - DM II w/ hyperglycemia, last A1c 15 - currently on insulin gtt. - beta-hydroxy butyrate initially elevated with an anion gap concerning for DKA - pt. continues to receive glucose in IVF an will be initating tube feeds HEME - - Stable H&H - trend while instituting Heparin gtt. ID - - Leukocytosis initially likely be stress induced, will cover w/ empiric antibiotics (Zosyn) while evaluating transaminitis and findings on CT. - follow HR, UOP, BP, WBC LINES/IV ACCESS - PIVs x2 RIGHT Femoral CVL - Cooling Catheter LEFT Radial A-line ET Tube Canales - Temperature Sensing OG DVT PROPHYLAXIS - Heparin gtt SCDs Supervising Physician Co-Signing Physician Notes Patient seen and examined. EMR reviewed. Discussed on multidisciplinary rounds and with bedside critical care nurse as well as family practice resident. Agree with his assessment and plan as noted with following changes. Based on my assessment it appears that the patient has suffered a devastating anoxic injury. He has fixed and dilated pupils with no corneal reflexes. He is not overbreathing the ventilator despite being somewhat acidotic. He has been off sedation for over 24 hours. He is currently rewarming. He demonstrates no purposeful movement and does not withdraw to noxious stimuli. His EEG showed no background rhythm but was not interpreted as isoelectric. Review of the institutional protocol for determining brain indicates that determination of brain cannot be conducted if the patient has received therapeutic hypothermia until he has been euthermic for 72hours. Family is apparently to be present today. Plan on meeting with them once they are available to discuss the current situation. I would recommend discontinuation of life support measures and transition to palliative care measures. If the family is reluctant to consider termination of resuscitative efforts, could consider brain evaluation however the soonest that can be conducted would likely be Tuesday as he is targeted to reach normothermia late this afternoon.. We will continue to support him with hypertonic saline currently for cerebral edema although again I do not suspect that this is going much of an impact. We will continue to trend his beta hydroxy butyrate and adjust insulin appropriately. May need to increase glucose. He is at risk for pituitary apoplexy as well as cerebral salt wasting. Total 40 minutes critical care time to this point Subjective Patient unresponsive today. Rewarming should be done at 16:00 - 17:00. Sedation was off at noon yesterday. Family including , girlfriend, and mother (Alex) will be coming today. (Rene Charles) was here today at 1PM and I talked with her. She knew that his case had a very poor prognosis and did not want him to have him on the ventilator much longer. Review of Systems Review of Systems: Unobtainable due to endotracheal tube Physical Exam Constitutional: - on the ventilator non responsive Eyes: - pupils fixed and dilated ENMT: external ear and nose normal, oropharynx normal Neck: normal visual inspection Respiratory: normal respiratory effort, lungs clear to auscultation Cardiovascular: - bradycardic, no m/r/g appreciated Chest (Breasts): Additional Comments: -scar from prior CABG and AICD placement Gastrointestinal (Abdomen): - soft, no masses Skin: - cool - oozing blood from cooling cath in left thigh Neurologic: - comatose, no response to pain - no cough, gag, corneal reflex Results & Data Results & Data ([facility]) Vital Signs (Past 12 Hours) Vital Signs Temp Temp Pulse Resp BP BP BP 03/20/20 10:15 34.6 C L 53 L 03/20/20 10:05 52 L 16 03/20/20 10:00 34.5 C L 34.4 C L 52 L 16 112/54 L 116/71 03/20/20 09:45 34.5 C L 52 L 03/20/20 09:30 34.4 C L 52 L 03/20/20 09:15 34.4 C L 52 L 03/20/20 09:00 34.3 C L 34.2 C L 50 L 16 104/52 L 105/67 03/20/20 08:45 34.3 C L 49 L 03/20/20 08:30 34.3 C L 48 L 03/20/20 08:15 49 L 03/20/20 08:00 34.1 C L 34.1 C L 50 L 16 109/57 L 107/74 03/20/20 07:30 33.9 C L 49 L 03/20/20 07:15 33.8 C L 49 L 03/20/20 07:00 33.7 C L 33.7 C L 48 L 16 113/60 109/71 03/20/20 06:50 48 L 16 03/20/20 06:26 33.6 C L 47 L 109/70 03/20/20 06:20 33.6 C L 47 L 03/20/20 06:12 33.5 C L 47 L 03/20/20 06:11 33.5 C L 47 L 113/74 03/20/20 06:10 33.5 C L 47 L 03/20/20 06:00 33.5 C L 45 L 03/20/20 05:56 33.3 C L 47 L 120/79 03/20/20 05:50 33.3 C L 46 L 03/20/20 05:41 33.2 C L 46 L 115/72 03/20/20 05:40 33.2 C L 46 L 03/20/20 05:30 33.2 C L 46 L 03/20/20 05:26 33.1 C L 46 L 121/74 03/20/20 05:20 33.1 C L 46 L 03/20/20 05:18 45 L 16 03/20/20 05:11 33.1 C L 45 L 130/78 03/20/20 05:10 33.1 C L 45 L 03/20/20 05:00 33.0 C L 45 L 03/20/20 04:57 33.0 C L 44 L 03/20/20 04:56 33.0 C L 45 L 122/77 03/20/20 04:50 33.0 C L 44 L 03/20/20 04:45 33 C L 45 L 16 130/66 03/20/20 04:41 33.0 C L 43 L 121/76 03/20/20 04:40 33.0 C L 43 L 03/20/20 04:30 33.0 C L 44 L 03/20/20 04:26 33.0 C L 44 L 125/75 03/20/20 04:20 33.0 C L 44 L 03/20/20 04:11 33.0 C L 44 L 121/76 03/20/20 04:10 33.0 C L 44 L 03/20/20 04:00 32.9 C L 43 L 03/20/20 03:56 32.9 C L 43 L 111/73 03/20/20 03:50 33.0 C L 42 L 03/20/20 03:41 33.0 C L 43 L 121/76 03/20/20 03:40 33.0 C L 43 L 03/20/20 03:30 33.0 C L 44 L 03/20/20 03:26 33.0 C L 44 L 124/78 03/20/20 03:15 33.0 C L 44 L 03/20/20 03:11 33.0 C L 44 L 120/75 03/20/20 03:00 32.9 C L 45 L 03/20/20 02:56 32.9 C L 45 L 121/76 03/20/20 02:45 32.9 C L 44 L 03/20/20 02:41 32.9 C L 44 L 126/78 03/20/20 02:30 33.0 C L 42 L 03/20/20 02:26 33.0 C L 42 L 125/75 03/20/20 02:15 33.1 C L 42 L 03/20/20 02:11 33.1 C L 42 L 119/75 03/20/20 02:00 33.0 C L 44 L 03/20/20 01:58 44 L 16 03/20/20 01:56 33.0 C L 44 L 114/75 03/20/20 01:45 32.9 C L 44 L 03/20/20 01:41 32.8 C L 44 L 123/76 03/20/20 01:30 32.9 C L 44 L 03/20/20 01:26 33.0 C L 43 L 114/82 03/20/20 01:15 33.0 C L 44 L 03/20/20 01:11 33.0 C L 44 L 129/78 03/20/20 01:00 33.0 C L 44 L 03/20/20 00:56 33.0 C L 44 L 127/76 03/20/20 00:45 33.0 C L 44 L 03/20/20 00:41 33.0 C L 44 L 126/80 03/20/20 00:30 33.0 C L 44 L 03/20/20 00:25 33.0 C L 44 L 131/77 03/20/20 00:20 33.0 C L 43 L 03/20/20 00:11 33.0 C L 42 L 105/69 03/20/20 00:10 33.0 C L 42 L 03/20/20 00:00 33.0 C L 44 L 03/19/20 23:55 33.0 C L 44 L 133/82 03/19/20 23:50 33.0 C L 45 L 03/19/20 23:40 33.0 C L 45 L 130/81 03/19/20 23:30 33.0 C L 45 L 03/19/20 23:25 33.0 C L 45 L 137/81 03/19/20 23:20 33.0 C L 44 L 03/19/20 23:10 33.0 C L 45 L 135/84 03/19/20 23:00 33.0 C L 45 L 03/19/20 22:55 33.0 C L 45 L 146/83 H 03/19/20 22:50 33.0 C L 45 L 03/19/20 22:45 33.0 C L 45 L 03/19/20 22:40 45 L 16 Pulse Ox 03/20/20 10:15 95 03/20/20 10:05 95 03/20/20 10:00 95 03/20/20 09:45 95 03/20/20 09:30 95 03/20/20 09:15 94 03/20/20 09:00 95 03/20/20 08:45 96 03/20/20 08:30 97 03/20/20 08:15 97 03/20/20 08:00 96 03/20/20 07:30 96 03/20/20 07:15 96 03/20/20 07:00 96 03/20/20 06:50 97 03/20/20 06:26 96 03/20/20 06:20 96 03/20/20 06:12 97 03/20/20 06:11 97 03/20/20 06:10 97 03/20/20 06:00 96 03/20/20 05:56 97 03/20/20 05:50 97 03/20/20 05:41 97 03/20/20 05:40 97 03/20/20 05:30 97 03/20/20 05:26 97 03/20/20 05:20 97 03/20/20 05:18 97 03/20/20 05:11 97 03/20/20 05:10 97 03/20/20 05:00 98 03/20/20 04:57 98 03/20/20 04:56 98 03/20/20 04:50 98 03/20/20 04:45 03/20/20 04:41 98 03/20/20 04:40 98 03/20/20 04:30 97 03/20/20 04:26 97 03/20/20 04:20 97 03/20/20 04:11 98 03/20/20 04:10 98 03/20/20 04:00 98 03/20/20 03:56 98 03/20/20 03:50 97 03/20/20 03:41 99 03/20/20 03:40 03/20/20 03:30 98 03/20/20 03:26 98 03/20/20 03:15 98 03/20/20 03:11 98 03/20/20 03:00 98 03/20/20 02:56 98 03/20/20 02:45 98 03/20/20 02:41 98 03/20/20 02:30 98 03/20/20 02:26 98 03/20/20 02:15 98 03/20/20 02:11 98 03/20/20 02:00 97 03/20/20 01:58 98 03/20/20 01:56 98 03/20/20 01:45 98 03/20/20 01:41 98 03/20/20 01:30 98 03/20/20 01:26 97 03/20/20 01:15 98 03/20/20 01:11 98 03/20/20 01:00 98 03/20/20 00:56 98 03/20/20 00:45 97 03/20/20 00:41 98 03/20/20 00:30 98 03/20/20 00:25 99 03/20/20 00:20 99 03/20/20 00:11 99 03/20/20 00:10 03/20/20 00:00 98 03/19/20 23:55 98 08/26/20 23:50 98 03/19/20 23:40 98 03/19/20 23:30 99 03/19/20 23:25 99 03/19/20 23:20 99 03/19/20 23:10 99 03/19/20 23:00 99 03/19/20 22:55 99 03/19/20 22:50 99 03/19/20 22:45 99 03/19/20 22:40 99 CBC Results Results Complete Blood Count Results: RBC 3.65 M/uL (4.7-6.1) L 03/20/20 WBC 10.99 K/uL (4.8-10.8) H 03/20/20 Hgb 10.7 g/dL (14.0-18.0) L 03/20/20 Hct 30.5 % (42-52) L 03/20/20 Plt Count 167 K/uL (130-400) 03/20/20 Chemistry (BMP) Results BMP Results: 2 Sodium 145 mmol/L (136-145) 03/20/20 Potassium 4.0 mmol/L (3.5-5.1) 03/20/20 Chloride 118 mmol/L (98-107) H 03/20/20 BUN 59 mg/dl (7-18) H 03/20/20 Creatinine 4.49 mg/dl (0.6-1.4) H 03/20/20 Glucose 124 mg/dl (70-99) H 03/20/20 Resident Activity Tracking Resident Involvement: Resident Care Provided Care Provided: [facility]
[2020-03-20] MEDS: PANTOprazole 40 MG in SYRINGE 0 ML IV SCH (10:46)
[2020-03-20] MEDS: SODIUM CHLORIDE 3 % 500 ML IV SCH (11:18)
[2020-03-20 11:27] LABS: BUN Creatinine Ratio 13.2 (10-20); Creatinine Clr Calc Pharmacy 24.2 ml/min; Est GFR (African American) 16.2
[2020-03-20 11:35] LABS: Appearance Urine Cloudy (Clear); Bacteria Urine Automated Negative (Negative); Bilirubin Urine Negative (Negative); Blood Urine 2+ (Negative); Color Urine Yellow; Glucose Urine UA Trace (Negative); Ketones Urine Negative (Negative); Leukocyte Esterase Urine 1+ (Negative); Nitrite Urine Negative (Negative); Protein Urine 3+ (Negative); RBC Urine Automated 0-4 /hpf (0-4); Specific Gravity Urine 1.015 (1.000-1.030); Urobilinogen Urine Negative (Negative)
[2020-03-20] MEDS ORDERED: PEPTAMEN INTENSE VHP 1.0 CAL 1,000 ML BAG OG SCH (11:45)
[2020-03-20 12:22] LABS: Amorphous Sediment Urine Present (None Prsent); Renal Epithelial Cells Urine 0-5 /lpf (0-5)
[2020-03-20 13:20] LABS: iSTAT Art Bld Gas pCO2 Correct 36 mmHg (35-46); iSTAT Arterial Blood Gas HCO3 17 meg/L (19-24); iSTAT Arterial Blood Gas pCO2 39 mmHg (35-46); iSTAT Arterial Blood Gas pH 7.25 (7.35-7.45); iSTAT Arterial Blood Gas pO2 68 mmHg (80-95); iSTAT Arterial Blood Gas pO2 C 59; iSTAT Carbon Dioxide 18 mmol/L (24-31); iSTAT FiO2 30 %; iSTAT Hematocrit 27 % (42-52); iSTAT Hemoglobin 9.2 g/dl (14.0-18.0); iSTAT Site Art Line; iSTAT Sodium 145 mmol/L (135-144)
--- NOTE | 2020-03-20 13:25 | Billing Data ---
Date of Service March 20, 2020 Coding Level of Care Code Critical Care mins
--- NOTE | 2020-03-20 13:38 | Pharmacy Report ---
Pharmacy Glycemic Short Note 2 - Date of Service March 20, 2020 - Glycemic Short BSG Results (Last 24 hours): 03/19/20 03/19/20 03/19/20 13:34 14:05 14:32 Glucose POC Glucose (other) 80 77 76 03/19/20 03/19/20 03/19/20 14:48 14:50 15:11 Glucose 76 POC Glucose (other) 75 85 03/19/20 03/19/20 03/19/20 15:59 16:33 17:08 Glucose 110 H POC Glucose (other) 91 100 H 03/19/20 03/19/20 03/19/20 17:10 18:08 18:57 Glucose 134 H POC Glucose (other) 110 H 124 H 03/19/20 03/19/20 03/19/20 19:07 20:10 21:07 Glucose 149 H POC Glucose (other) 132 H 144 H 03/19/20 03/19/20 03/19/20 21:08 22:08 22:41 Glucose 138 H POC Glucose (other) 149 H 141 H 03/19/20 03/20/20 03/20/20 22:46 00:11 00:16 Glucose 135 H POC Glucose (other) 138 H 134 H 03/20/20 03/20/20 03/20/20 02:15 04:15 04:21 Glucose 126 H 111 H POC Glucose (other) 114 H 03/20/20 03/20/20 03/20/20 06:07 06:52 08:08 Glucose 107 H POC Glucose (other) 105 H 110 H 03/20/20 03/20/20 03/20/20 08:25 09:11 10:15 Glucose 118 H POC Glucose (other) 116 H 122 H 03/20/20 03/20/20 10:42 13:07 Glucose 124 H POC Glucose (other) 128 H OUTPATIENT ANTIDIABETIC REGIMEN: * Basaglar 15 units BID * Novolog 10 units + sliding scale with meals ASSESSMENT: 03/20: * Infusion was restarted last evening at 2 units/hr, currently running at 1 unit/hr. BSG has remained < 150 mg/dL while continued on D5W NSS @ 50 mL/hr. Patient also initiated on tube feeds to reach goal tomorrow. Will re-evaluate in the morning need for any additional sq novolog to cover carbs after completely rewarmed and at TF goal. * Hypertonic saline running at 100 mL/hr having reached goal sodium. 03/19 * Patient presenting very hyperglycemic post cardiac arrest, requiring very high insulin infusion rates ( i.e. 20 units/hr), likely do to uncontrolled diabetes and severe stress response * Patient was admitted earlier this month with an A1c of 15% * Insulin infusion has been held since ~ 12pm per protocol due to drop in BSG (last rate ~ 15 units/hr) * BSG was continuously checked q15-30 minutes while downtrending and will be continued until at least significant uptrend noted * Maintenance fluids were changed per MD to D5W NSS @ 50 mL/hr * [place] BSG target per MD < 150 mg/dL * Discussed plan at length with nurse and evening shift pharmacist. Also discussed that this patient is complex and likely will require frequent communication between nurse, pharmacist and provider as necessary. * Can consider re-initiation of the insulin infusion once BSG > 140 mg/dL at a much lower rate (~3 units/hr) to start * Patient is also on a heparin drip (currently on hold) and a 3% saline infusion * Will continue with insulin infusion as needed given hypothermic protocol and unfavorable kinetics with SQ insulin during hypothermia PLAN FOR INPATIENT GLYCEMIC CONTROL: * Basal insulin * IV Insulin infusion (rate to be determined based on BSG trends) * Goal: 110-180 * Bolus insulin * NovoLog per scale ACHS or Q6hrs while NPO * Nutritional / Prandial insulin per IV insulin infusion calculator
--- NOTE | 2020-03-20 13:46 | Electrocardiogram Report ---
Test Reason : Blood Pressure : / mmHG Vent. Rate : 048 BPM Atrial Rate : 048 BPM P-R Int : 200 ms QRS Dur : 090 ms QT Int : 616 ms P-R-T Axes : -02 -24 012 degrees QTc Int : 550 ms Sinus bradycardia Old Inferior infarct (cited on or before 18-MAR-2020) Possible Old Anterior infarct (cited on or before 18-MAR-2020) Abnormal ECG When compared with ECG of 20-MAR-2020 04:28, No significant change was found Confirmed by Jerry Salazar ([id number]) on 03/20/2020 1:46:23 PM Referred By: REFERRED SELF Confirmed By:Jerry Salazar
--- NOTE | 2020-03-20 13:51 | Electrocardiogram Report ---
Test Reason : Blood Pressure : / mmHG Vent. Rate : 055 BPM Atrial Rate : 055 BPM P-R Int : 192 ms QRS Dur : 092 ms QT Int : 568 ms P-R-T Axes : 002 -22 008 degrees QTc Int : 543 ms Sinus bradycardia Old Inferior infarct (cited on or before 18-MAR-2020) Possible Old Anterior infarct (cited on or before 18-MAR-2020) Abnormal ECG When compared with ECG of 20-MAR-2020 08:40, No significant change was found Confirmed by Jerry Salazar ([id number]) on 03/20/2020 1:51:35 PM Referred By: REFERRED SELF Confirmed By:Jerry Salazar
[2020-03-20] MEDS ORDERED: SODIUM CHLORIDE 1 GM TABLET PO SCH (14:00)
[2020-03-20 15:28] LABS: Calcium 6.8 mg/dl (8.5-10.1); Creatinine Clr Calc Pharmacy 23.3 ml/min; Est GFR (African American) 15.6; Est GFR (Non-African American) 13.4; Potassium 4.2 mmol/L (3.5-5.1)
--- NOTE | 2020-03-20 17:43 | Communication Note ---
Date of Service: March 20, 2020 Met with patient's mother and . Case was updated. Patient's had no significant neurological improvement and remains with no corneal reflexes and fixed and dilated pupils with no response to verbal or tactile or noxious stimuli. He is not overbreathing the ventilator despite being acidotic. His EEG had been almost isoelectric and he is now warmed. I advised them that it appears that he is suffered a devastating neurological injury. The states that she and the patient had had multiple discussions previously regarding this subject and a desire to not be maintained in an artificial state on mechanical means. We reviewed what terminal extubation and transition to full palliative care would look like. Both the and mother are in agreement that this is what the patient would wish if you were able to voice his wishes. Will transition to full palliative care and pursue terminal extubation once family is available. Comfort care orders were entered. Additional critical care time, 45 minutes including end-of-life discussions Coding Level of Care Code Critical Care oliver addt'l 30 min Time Spent (min) 45
[2020-03-20] MEDS ORDERED: MoRPHine SULFATE 2 MG/ML CARP IV PRN (18:00)
[2020-03-20] MEDS ORDERED: ONDANSETRON 4 MG OD TAB SL PRN (18:00)
[2020-03-20] MEDS ORDERED: ONDANSETRON INJ 2 MG/ML 2 ML VIAL IV PRN (18:00)
[2020-03-20] MEDS ORDERED: GLYCOPYRROLATE 0.2 MG/ML VIAL IV PRN (18:00)
[2020-03-20] MEDS ORDERED: LORazepam 0.5 MG/1 ML VIAL IV PRN (18:00)
--- NOTE | 2020-03-20 18:48 | Death Pronouncement Note ---
Date of Service March 20, 2020 Pronouncement Note Admission Date Admission Date: March 18, 2020 Date and Time of Date of : 03/20/20 Time of : 18:23 PCOD Preliminary cause of : Anoxia of brain Contributing Factors (1) Cardiac arrest: (2) BUBBA (acute kidney injury): (3) Anoxic brain injury: (4) Acute respiratory failure with hypoxia: (5) Shock liver: (6) Aspiration pneumonia: (7) CKD (chronic kidney disease): (8) CAD (coronary artery disease): (9) Diabetes mellitus: (10) Ischemic cardiomyopathy: (11) HTN (hypertension): (12) ICD (implantable cardioverter-defibrillator), single, in situ: (13) Elevated troponin: (14) DVT prophylaxis: Hospital Course Hospital Course: see discharge summary Additional Data Confirmation of : no pulse, no respirations, no heart sounds, pupils fixed and dilated and other (No response to pain or voice ) Family: at bedside Attending/PCP notified?: Yes Attending physician: Alverto Billings Was code activated?: No Autopsy requested?: No road test examiner notified?: No Organ bank notified?: Yes Coding Level of Care Code None Diagnoses Cardiac arrest I46.9 BUBBA (acute kidney injury) N17.9 Anoxic brain injury G93.1 Acute respiratory failure with hypoxia J96.01 Shock liver K72.00 Aspiration pneumonia J69.0 CKD (chronic kidney disease) N18.9 CAD (coronary artery disease) I25.10 Diabetes mellitus E11.9 Ischemic cardiomyopathy I25.5 HTN (hypertension) I10 ICD (implantable cardioverter-defibrillator), single, in situ Z95.810 Elevated troponin R79.89 DVT prophylaxis Z29.9
--- NOTE | 2020-03-20 19:14 | Discharge Summary ---
Date of Service date of admission - March 18, 2020 date of - March 20, 2020 @1823 Admission HPI Per Admitting Provider Billy Mensah is a 54-year-old male with a past medical history of CKD, GA& CAD with ICD, and uncontrolled type 2 diabetes with A1c of approximately 15 who presented as a CODE BLUE converted to a heart alert in route by EMS.Per chart review patient was recently seen on 03/03/2020 admitted for ACS rule out. At that time he had an BUBBA to creatinine of 2.0, unclear baseline. Hemoglobin A1c was 15.0 and due to being without medication for several weeks due to financial issues. Per emergency medical services report patient was at home when he collapsed in front of his who called EMS. No bystander CPR was performed in the field. EMS arrived at the scene within approximately 5 to 6 minutes. On arrival patient was found to be pulseless. CPR was performed and patient received 5 doses of epinephrine, 1 ca gluconate, and 1 amp bicarb in route with ROSC. On arrival to the emergency department patient became pulseless and chest compressions were resumed for PEA. Patient received 1x additional epinephrine and an additional amp of bicarb. ROSC was again achieved. Lokya-dh-pfya testing showed a sodium of 4.5. Epinephrine gtt was initiated and patient was transferred for cardiac catheterization. Principal Diagnosis anoxic brain injury 2nd to prolonged cardiac arrest Discharge Exam at time of : * pupils fixed/dilated * no response to pain or voice * no audible heart tones * no spontaneous respirations * no palpable pulse Discharge Data Allergies Allergy/AdvReac Type Severity Reaction Status Date / Time bee venom protein (honey bee) Allergy Unknown Unverified 03/12/20 08:46 fluorescein Allergy Unknown Unverified 03/12/20 08:46 Consultations Cardiology Critical Care Procedures Performed 1. intubation with mechanical ventilation 2. central venous line placement 3. arterial line placement 4. hypothermia cooling protocol 5. EEG - Impression: This was an abnormal EEG as there was no clear background rhythm, PDR, variability or reactivity. No seizures or epileptiform discharges were seen. Given his history of cardiac arrest, this EEG suggests a very poor prognosis neurologically (not completed with the brain protocols so cannot ascertain brain with EEG only). 6. echocardiogram 7. pacemaker/AICD interrogation Ordered Studies 03/18/20 21:47 CT head/brain wo con Urgent IMPRESSION: Loss of tineo-white differentiation with effacement of the cortical sulci and small ventricles. The findings are suggestive of diffuse cerebral edema 03/18/20 23:16 US point of care ultrasound Urgent 03/18/20 23:17 CT abd pelvis wo con Urgent CT chest wo con Urgent 03/19/20 00:37 US liver Urgent Hospital Course (1) Cardiac arrest: Upon presentation to [facility] a code heart alert and code arctic alert were called. Dr Ed Iqbal from cardiology reviewed the case, and it was felt that an ischemic event was not the underlying cause of his cardiac arrest. By EMS report he was mainly in PEA and did achieve ROSC with standard ACLS interventions and protocol. AICD interrogation failed to show V-tach or device electrical discharge. At time of admission to the ICU his head CT showed findings highly concerning for severe anoxic brain injury. LFTs showed acute liver injury consistent with shock liver. Creatinine was 4.3 indicative of ATN/acute kidney injury. Troponin was 0.76. He completed hypothermia cooling protocol, was treated for suspected aspiration pneumonia with IV zosyn, and received IV heparin. Pressor agents were continued for blood pressure support. Multiple discussions were held with the patient's family to define goals of care. They were told that his prognosis was quite grim especially in light of his head CT findings and concern for severe anoxic brain injury. After completing the hypothermia protocol the patient was rewarmed. Once normal temperatures were reached he was reassessed clinically. At that point his exam showed fixed and asymmetric pupils, and he had no response to tactile or painful stimuli. He had no purposeful or spontaneous movements. Shortly after a decision was made by his family to perform terminal extubation and allow him to pass peacefully. Therefore, on the afternoon of 03/20/20, he was initiated on comfort care measures, extubated from the ventilator, and minutes later peacefully with his family at bedside. (2) BUBBA (acute kidney injury): (3) Anoxic brain injury: (4) Acute respiratory failure with hypoxia: (5) Shock liver: (6) Aspiration pneumonia: (7) CKD (chronic kidney disease): (8) CAD (coronary artery disease): (9) Diabetes mellitus: (10) Ischemic cardiomyopathy: echo: EF 40-45% mild right ventricular dysfunction multiple areas of wall motion abnormality mild pulmonary HTN (11) HTN (hypertension): (12) ICD (implantable cardioverter-defibrillator), single, in situ: (13) Elevated troponin: not felt to represent acute coronary syndrome rather, myocardial demand ischemia in setting of cardiac arrest of uncertain etiology peak troponin was 3.1 Total Time Total Time Spent Total Time Spent (In Minutes): 25 Total Time Includes: Examination of the Patient, Discharge Planning, Medication Reconciliation and Communication With Other Providers Discharge Plan Discharge Items Patient Disposition: Coding Level of Care Code D/C Day Management <30 mins Diagnoses Cardiac arrest I46.9 BUBBA (acute kidney injury) N17.9 Anoxic brain injury G93.1 Acute respiratory failure with hypoxia J96.01 Shock liver K72.00 Aspiration pneumonia J69.0 CKD (chronic kidney disease) N18.9 CAD (coronary artery disease) I25.10 Diabetes mellitus E11.9 Ischemic cardiomyopathy I25.5 HTN (hypertension) I10 ICD (implantable cardioverter-defibrillator), single, in situ Z95.810 Elevated troponin R79.89
== END 2020-03-20 20:10 | disposition expired | DRG 296 ==
LOC: ED 19:50 → 1E 20:19 → SUATTDRO 20:38